=== PATIENT | female | born 1960 | race Caucasian/White ===

== ENCOUNTER 2024-05-24 12:47 | Inpatient (IN) | payer MEDICARE, MEDICAID ==
[~2024-05-24] VITALS: Ht 165.1 cm; Wt 77.6 kg
[2024-05-24 14:22] LABS: COVID AG,FIA SOURCE NASAL SWAB
[2024-05-24 14:23] LABS: BASOPHILS % (AUTO) 0.4 % (0.0-2.0); EOSINOPHILS % (AUTO) 1.3 % (1.0-6.0); HEMOGLOBIN 14.2 g/dL (12.0-16.0); LYMPHOCYTES # (AUTO) 1.3 K/uL (1.0-4.8); LYMPHOCYTES % (AUTO) 11.2 % (22.0-44.0); MEAN CORPUSCULAR HEMOGLOBIN 31.7 pg (26.0-34.0); MEAN CORPUSCULAR VOLUME 96 fL (80-100); MONOCYTES % (AUTO) 8.1 % (2.0-9.0); NEUTROPHILS # (AUTO) 9.4 K/uL (1.8-7.7); PLATELET COUNT (AUTO) 183 K/uL (150-450); RED BLOOD CELL COUNT(AUTO) 4.47 MIL/uL (4.00-5.20); RED CELL DISTRIBUTION WIDTH 13.5 % (11.5-14.5); WHITE BLOOD COUNT (AUTO) 11.9 K/uL (4.5-11.0)
[2024-05-24 14:41] LABS: ANION GAP 10 mmol/L (8-16); CALCIUM, TOTAL 8.6 mg/dL (8.8-10.5); CARBON DIOXIDE 27 mmol/L (22-29); CHLORIDE 103 mmol/L (98-107); GLOMERULAR FILTR. RATE CALC 46 mL/min (>60); GLUCOSE,RANDOM 216 mg/dL (70-110); POTASSIUM 4.6 mmol/L (3.5-5.1); SODIUM SERUM 140 mmol/L (136-145); TROPONIN I-HIGH SENSITIVITY 4 ng/L (<51); UREA NITROGEN, BLOOD 27 mg/dL (7-18)
[2024-05-24 14:46] LABS: ALANINE AMINOTRANSFERASE 12 U/L (12-78); ALBUMIN 2.8 g/dL (3.4-5.0); ALKALINE PHOSPHATASE 89 U/L (46-116); ASPARTATE AMINOTRANSFERASE 9 U/L (15-37); BILIRUBIN,TOTAL 0.4 mg/dL (0.1-1.0); LIPASE 17 U/L (16-77); TOTAL PROTEIN, SERUM 6.1 g/dL (6.4-8.2)
[2024-05-24 14:54] LABS: SARS-COV2 (COVID) ANTIGEN,FIA Negative (Negative)
[2024-05-24 15:09] LABS: ALCOHOL, BLOOD (SERUM) < 3 mg/dL (0-10)
[2024-05-24 17:10] VITALS: O2SAT 98
[2024-05-24] MEDS: LORazepam 2 MG TABLET PO PRN (18:02)
[2024-05-24 20:01] LABS: GLUCOMETER DEV NAME(LOC) BV2X.3; GLUCOSE,POINT OF CARE 195 MG/DL (70-110)
[2024-05-24 20:05] VITALS: BP 152/69; PULSE 98; RESP 18; TEMP 97.5; O2SAT 99
[2024-05-24] MEDS ORDERED: MAGNESIUM HYDROXIDE SUSPENSION 30 ML UDCUP PO PRN (23:00)
[2024-05-24] MEDS ORDERED: MAG HYDROX/ALUMINUM HYD/SIMETH ES 30 ML SUSPENSION UDCUP PO PRN (23:00)
[2024-05-24] MEDS ORDERED: HydrOXYzine PAMOATE 50 MG CAPSULE PO PRN (23:00)
[2024-05-24] MEDS ORDERED: MELATONIN 5 MG TABLET PO PRN (23:00)
[2024-05-25 08:18] VITALS: BP 113/70; PULSE 94; RESP 17; TEMP 97.9; O2SAT 95
[2024-05-25] MEDS: GABAPENTIN 400 MG CAPSULE PO SCH (08:25)
[2024-05-25] MEDS: MULTIVITAMINS WITH MINERALS, THERAPEUTIC TABLET PO SCH (08:25)
[2024-05-25] MEDS: OMEGA-3/DHA/EPA/FISH OIL 1,000 MG CAPSULE PO SCH (08:25)
[2024-05-25] MEDS: DULoxetine HCL 30 MG CAPSULE PO SCH (08:25)
[2024-05-25] MEDS: DIVALPROEX SODIUM 500 MG ER TABLET PO SCH (08:26)
[2024-05-25] MEDS: NALTREXONE HCL 50 MG TABLET PO SCH (08:26)
[2024-05-25] MEDS: THIAMINE 100 MG TABLET PO SCH (08:26)
[2024-05-25] MEDS: FOLIC ACID 1 MG TABLET PO SCH (08:26)
[2024-05-25] MEDS: ROPINIRole HCL 0.25 MG TABLET PO SCH (08:36)
[2024-05-25] MEDS: PROPRANOLOL HCL 10 MG TABLET PO SCH (08:36)
[2024-05-25 09:59] LABS: CHOL/HDL RATIO 2.7 (3.9-5.7); FREE T4 (FREE THYROXINE) 0.99 ng/dL (0.76-1.46); THYROID STIMULATING HORMONE 0.92 uIU/mL (0.36-3.74)
[2024-05-25] MEDS: LOPERAMIDE HCL 2 MG CAPSULE PO PRN (10:26)
[2024-05-25] MEDS: NICOTINE 14 MG/24 HOUR PATCH TD SCH (10:49)
[2024-05-25 13:26] LABS: GLUCOMETER DEV NAME(LOC) BV2X.3; GLUCOSE,POINT OF CARE 198 MG/DL (70-110)
[2024-05-25] MEDS: ACETAMINOPHEN 325 MG TABLET PO PRN (15:20)
[2024-05-25] MEDS: LURASIDONE HCL 20 MG TABLET PO SCH (16:00)
[2024-05-25 16:20] VITALS: RESP 18
[2024-05-25] MEDS: QUEtiapine FUMARATE 300 MG TABLET PO SCH (20:03)
[2024-05-25] MEDS: TraZODone HCL 100 MG TABLET PO SCH (20:03)
[2024-05-25] MEDS: ZOLPIDEM TARTRATE 10 MG TABLET PO PRN (20:03)
[2024-05-25 20:35] VITALS: BP 139/61; PULSE 88; RESP 18; TEMP 98; O2SAT 99
[2024-05-26] VITALS (9 sets, daily range): BP systolic 98–146; BP diastolic 55–76; PULSE 70–99; RESP 16–20; TEMP 96.5–98.5; O2SAT 94–97
[2024-05-26 10:32] LABS: HEMOGLOBIN A1C 8.8 % (3.8-5.6)
[2024-05-26 10:54] LABS: CHOL/HDL RATIO 3.1 (3.9-5.7); FREE T4 (FREE THYROXINE) 0.87 ng/dL (0.76-1.46); THYROID STIMULATING HORMONE 0.91 uIU/mL (0.36-3.74)
[2024-05-26] MEDS: GuaiFENesin/D-METHORPHAN [SUGAR-FREE] 200-20MG/10 ML SYRUP UDCUP PO PRN (12:51)
[2024-05-26] MEDS: PNEUMOCOCCAL VACCINE POLYVALENT 0.5 ML SYRINGE [PPSV23] IM. ONE (17:30)
[2024-05-26 21:40] LABS: GLUCOMETER DEV NAME(LOC) BV2X.3; GLUCOSE,POINT OF CARE 240 MG/DL (70-110)
[2024-05-27] VITALS (7 sets, daily range): BP systolic 110–125; BP diastolic 60–72; PULSE 78–98; RESP 16–18; TEMP 97–98.1; O2SAT 91–98
[2024-05-28 08:00] VITALS: BP 102/67; PULSE 92; RESP 16; TEMP 96.1; O2SAT 98
[2024-05-28 08:52] LABS: BASOPHILS % (AUTO) 0.6 % (0.0-2.0); EOSINOPHILS % (AUTO) 1.5 % (1.0-6.0); HEMATOCRIT 42.6 % (36-46); HEMOGLOBIN 14.3 g/dL (12.0-16.0); LYMPHOCYTES # (AUTO) 1.8 K/uL (1.0-4.8); LYMPHOCYTES % (AUTO) 20.9 % (22.0-44.0); MEAN CORPUSCULAR HGB CONC 33.6 G/dL (31.0-37.0); MEAN CORPUSCULAR VOLUME 95 fL (80-100); MONOCYTES # (AUTO) 0.8 K/uL (0.1-1.0); MONOCYTES % (AUTO) 9.9 % (2.0-9.0); NEUTROPHILS # (AUTO) 5.6 K/uL (1.8-7.7); NEUTROPHILS % (AUTO) 67.1 % (40.0-70.0); PLATELET COUNT (AUTO) 194 K/uL (150-450); RED BLOOD CELL COUNT(AUTO) 4.47 MIL/uL (4.00-5.20); RED CELL DISTRIBUTION WIDTH 13.5 % (11.5-14.5); WHITE BLOOD COUNT (AUTO) 8.4 K/uL (4.5-11.0)
[2024-05-28] MEDS: QUEtiapine FUMARATE 25 MG TABLET PO SCH (17:15)
[2024-05-28 20:10] VITALS: BP 98/58; PULSE 74; RESP 18; TEMP 97.3; O2SAT 97
[2024-05-29] VITALS (7 sets, daily range): BP systolic 98–136; BP diastolic 58–94; PULSE 71–84; RESP 17–18; TEMP 97.3–98.3; O2SAT 92–98
[2024-05-29] MEDS: ROPINIRole HCL 0.25 MG TABLET PO SCH (08:44)
[2024-05-29] MEDS: DULoxetine HCL 60 MG CAPSULE PO SCH (08:45)
[2024-05-29] MEDS: PROPRANOLOL HCL 10 MG TABLET PO SCH (08:46)
[2024-05-29] MEDS: LURASIDONE HCL 40 MG TABLET PO SCH (16:51)
[2024-05-29] MEDS: LEVOFLOXACIN 500 MG TABLET PO ONE (18:50)
[2024-05-30 08:21] VITALS: BP 108/65; PULSE 66; RESP 16; TEMP 97.8; O2SAT 96
[2024-05-30] MEDS: LEVOFLOXACIN 750 MG TABLET PO SCH (08:30)
[2024-05-30 08:44] LABS: BASOPHILS % (AUTO) 0.6 % (0.0-2.0); EOSINOPHILS % (AUTO) 2.5 % (1.0-6.0); HEMATOCRIT 42.5 % (36-46); HEMOGLOBIN 14.4 g/dL (12.0-16.0); LYMPHOCYTES # (AUTO) 1.1 K/uL (1.0-4.8); LYMPHOCYTES % (AUTO) 19.3 % (22.0-44.0); MEAN CORPUSCULAR HEMOGLOBIN 32.2 pg (26.0-34.0); MEAN CORPUSCULAR HGB CONC 33.9 G/dL (31.0-37.0); MEAN CORPUSCULAR VOLUME 95 fL (80-100); MONOCYTES # (AUTO) 0.5 K/uL (0.1-1.0); MONOCYTES % (AUTO) 8.8 % (2.0-9.0); NEUTROPHILS # (AUTO) 4.1 K/uL (1.8-7.7); NEUTROPHILS % (AUTO) 68.8 % (40.0-70.0); PLATELET COUNT (AUTO) 223 K/uL (150-450); RED BLOOD CELL COUNT(AUTO) 4.48 MIL/uL (4.00-5.20); RED CELL DISTRIBUTION WIDTH 13.2 % (11.5-14.5); WHITE BLOOD COUNT (AUTO) 5.9 K/uL (4.5-11.0)
[2024-05-30 08:54] LABS: ANION GAP 10 mmol/L (8-16); CALCIUM, TOTAL 9.1 mg/dL (8.8-10.5); CARBON DIOXIDE 30 mmol/L (22-29); CHLORIDE 96 mmol/L (98-107); CREATININE 0.76 mg/dL (0.60-1.30); GLOMERULAR FILTR. RATE CALC > 60 mL/min (>60); GLUCOSE,RANDOM 186 mg/dL (70-110); SODIUM SERUM 136 mmol/L (136-145); UREA NITROGEN, BLOOD 14 mg/dL (7-18); VALPROIC ACID 32 mcg/mL (50-100)
[2024-05-30 09:32] LABS: INFLUENZA TYPE A NEGATIVE FOR TYPE A (NEGATIVE); INFLUENZA TYPE B NEGATIVE FOR TYPE B (NEGATIVE)
[2024-05-30] MEDS: LORazepam 0.5 MG TABLET PO PRN (11:02)
[2024-05-30 12:46] VITALS: BP 123/67; PULSE 70; RESP 16; O2SAT 96
[2024-05-30 16:19] VITALS: BP 106/62; PULSE 75; RESP 18; O2SAT 99
[2024-05-30 20:09] VITALS: BP 106/64; PULSE 68; RESP 18; TEMP 98.2; O2SAT 95
[2024-05-31 08:21] VITALS: BP 110/67; PULSE 66; RESP 17; TEMP 98.1; O2SAT 97
[2024-05-31 12:57] VITALS: BP 110/60; PULSE 79; RESP 16; O2SAT 96
[2024-05-31 17:10] VITALS: BP 100/60; PULSE 71; RESP 17; O2SAT 96
[2024-05-31] MEDS: TUBERCULIN, PURIFIED PROTEIN DERIVATIVE 5 TU/0.1 ML SYRINGE ID ONE (17:21)
[2024-05-31 20:11] VITALS: BP 93/57; PULSE 62; RESP 18; TEMP 96.7; O2SAT 95
[2024-06-01 08:05] VITALS: BP 106/67; PULSE 98; RESP 16; TEMP 97.9; O2SAT 95
[2024-06-01 12:40] VITALS: BP 124/79; PULSE 88; RESP 17; O2SAT 96
[2024-06-01] MEDS: GABAPENTIN 100 MG CAPSULE PO SCH (12:51)
[2024-06-01 13:20] VITALS: RESP 17
[2024-06-01 14:20] VITALS: RESP 16
[2024-06-01 16:00] VITALS: BP 112/60; PULSE 78; RESP 17; O2SAT 96
[2024-06-01 20:56] VITALS: BP 112/58; PULSE 69; RESP 17; TEMP 98.4; O2SAT 95
[2024-06-02 08:09] VITALS: BP 131/75; PULSE 74; RESP 18; TEMP 97.5; O2SAT 95
[2024-06-02] MEDS: PROMETHAZINE HCL 25 MG TABLET PO PRN (08:35)
[2024-06-02 16:39] VITALS: BP 123/81; PULSE 83; RESP 18
[2024-06-02 20:08] VITALS: BP 116/62; PULSE 68; RESP 16; TEMP 97.7; O2SAT 100
[2024-06-03 08:10] VITALS: BP 121/79; PULSE 71; RESP 18; TEMP 98; O2SAT 96
[2024-06-03] MEDS: MAG HYDROX/ALUMINUM HYD/SIMETH ES 30 ML SUSPENSION UDCUP PO PRN (09:34)
[2024-06-03] MEDS: HALOPERIDOL 5 MG TABLET PO PRN (11:16)
[2024-06-03 16:28] VITALS: BP 109/79; PULSE 67; RESP 18
[2024-06-03 20:05] VITALS: BP 105/69; PULSE 69; RESP 18; TEMP 97.5; O2SAT 100
[2024-06-04 08:02] VITALS: BP 109/72; PULSE 75; RESP 18; TEMP 96.6; O2SAT 95
[2024-06-04 08:20] VITALS: BP 109/72; PULSE 75; RESP 18; TEMP 96.6; O2SAT 95
[2024-06-04] MEDS: MAGNESIUM HYDROXIDE SUSPENSION 30 ML UDCUP PO PRN (09:49)
[2024-06-04 13:57] VITALS: BP 112/71; PULSE 70; RESP 18
[2024-06-04 16:30] VITALS: BP 114/63; PULSE 71; RESP 18
[2024-06-04 20:09] VITALS: BP 122/61; PULSE 73; RESP 18; TEMP 97.8
[2024-06-05 08:21] VITALS: BP 104/62; PULSE 63; RESP 16; TEMP 97.9; O2SAT 96
[2024-06-05] MEDS: GABAPENTIN 300 MG CAPSULE PO SCH (08:21)
[2024-06-05] MEDS: DIVALPROEX SODIUM 500 MG ER TABLET PO SCH (11:52)
[2024-06-05] MEDS: LURASIDONE HCL 60 MG TABLET PO SCH (17:00)
[2024-06-05] MEDS: GABAPENTIN 400 MG CAPSULE PO SCH (17:00)
[2024-06-05 22:35] VITALS: BP 102/65; PULSE 96; RESP 16; TEMP 98.2; O2SAT 96
[2024-06-06 08:01] VITALS: BP 128/89; PULSE 89; RESP 18; TEMP 97.9; O2SAT 95
[2024-06-06] MEDS: DONEPEZIL HCL 5 MG TABLET PO SCH (08:47)
[2024-06-06] MEDS: LURASIDONE HCL 80 MG TABLET PO SCH (16:45)
[2024-06-06 20:25] VITALS: BP 132/64; PULSE 76; RESP 17; TEMP 97.5; O2SAT 95
[2024-06-07] MEDS: GABAPENTIN 300 MG CAPSULE PO PRN (08:13)
[2024-06-07 10:15] LABS: APPEARANCE,URINE CLEAR (CLEAR); BILIRUBIN,URINE NEGATIVE (NEGATIVE); COLOR,URINE LIGHT YELLOW (YELLOW); GLUCOSE, URINE (UA) 300-500 mg/dL (NEGATIVE); LEUKOCYTE ESTERASE ,URINE NEGATIVE (NEGATIVE); NITRATE,URINE NEGATIVE (NEGATIVE); OCCULT BLOOD,URINE NEGATIVE (NEGATIVE); PROTEIN,URINE NEGATIVE (NEGATIVE); SPECIFIC GRAVITIY, URINE 1.015 (1.003-1.030); UROBILINOGEN,URINE <=1.0 mg/dL (<=1.0)
[2024-06-07 10:31] VITALS: BP 126/84; PULSE 83; RESP 17; TEMP 97.2; O2SAT 98
[2024-06-07 11:20] LABS: BACTERIA,URINE None Seen /HPF (None Seen); RBC,URINE None Seen /HPF (0-2); SQUAMOUS EPITHELIAL CELL,UR Few /LPF (None Seen); WBC,URINE None Seen /HPF (0-5)
[2024-06-07 16:00] VITALS: BP 129/68; PULSE 72; RESP 18; TEMP 97; O2SAT 100
[2024-06-07 17:45] LABS: GLUCOMETER DEV NAME(LOC) 3EX.2; GLUCOSE,POINT OF CARE 258 MG/DL (70-110)
[2024-06-07 20:00] VITALS: BP 145/82; PULSE 73; RESP 19; TEMP 97.9; O2SAT 98
[2024-06-07 21:36] LABS: GLUCOMETER DEV NAME(LOC) 3EX.2; GLUCOSE,POINT OF CARE 241 MG/DL (70-110)
[2024-06-07] MEDS: INSULIN LISPRO 100 UNITS/ML SQ PRN (22:14)
[2024-06-08 06:46] LABS: GLUCOMETER DEV NAME(LOC) 3EX.2; GLUCOSE,POINT OF CARE 207 MG/DL (70-110)
[2024-06-08 09:00] VITALS: BP 100/49; PULSE 70; RESP 18; TEMP 97.6; O2SAT 93
[2024-06-08 10:53] VITALS: BP 103/52; PULSE 71; RESP 18; TEMP 97.6; O2SAT 98
[2024-06-08] MEDS: ACETAMINOPHEN 325 MG TABLET PO PRN (10:53)
[2024-06-08 11:53] VITALS: BP 124/82; PULSE 72; RESP 18; TEMP 97.4; O2SAT 98
[2024-06-08 12:25] LABS: GLUCOMETER DEV NAME(LOC) 3EX.2; GLUCOSE,POINT OF CARE 294 MG/DL (70-110)
[2024-06-08 17:45] LABS: GLUCOMETER DEV NAME(LOC) 3EX.2; GLUCOSE,POINT OF CARE 349 MG/DL (70-110)
[2024-06-08 20:00] VITALS: BP 103/51; PULSE 69; RESP 18; TEMP 96.8; O2SAT 97
[2024-06-08 22:21] LABS: GLUCOMETER DEV NAME(LOC) 3EX.2; GLUCOSE,POINT OF CARE 210 MG/DL (70-110)
[2024-06-09 06:31] LABS: GLUCOMETER DEV NAME(LOC) 3EX.2; GLUCOSE,POINT OF CARE 186 MG/DL (70-110)
[2024-06-09 08:00] VITALS: BP 119/73; PULSE 63; RESP 17; TEMP 97.5
[2024-06-09] MEDS: GABAPENTIN 300 MG CAPSULE PO SCH (08:28)
[2024-06-09] MEDS: QUEtiapine FUMARATE 25 MG TABLET PO SCH (08:28)
[2024-06-09] MEDS: LOPERAMIDE HCL 2 MG CAPSULE PO PRN (11:45)
[2024-06-09 12:11] LABS: GLUCOMETER DEV NAME(LOC) 3E.C; GLUCOSE,POINT OF CARE 386 MG/DL (70-110)
[2024-06-09 17:11] LABS: GLUCOMETER DEV NAME(LOC) 3E.C; GLUCOSE,POINT OF CARE 256 MG/DL (70-110)
[2024-06-09 20:38] VITALS: BP 121/72; PULSE 68; RESP 18; TEMP 98; O2SAT 98
[2024-06-09 22:16] LABS: GLUCOMETER DEV NAME(LOC) 3EX.2; GLUCOSE,POINT OF CARE 225 MG/DL (70-110)
[2024-06-10 06:52] LABS: GLUCOMETER DEV NAME(LOC) 3EX.2; GLUCOSE,POINT OF CARE 193 MG/DL (70-110)
[2024-06-10 09:29] VITALS: BP 106/70; PULSE 83; RESP 18; TEMP 97.7; O2SAT 98
[2024-06-10] MEDS: ALBUTEROL SULFATE HFA 90 MCG/PUFF 8 GM INHALER IH PRN (10:49)
[2024-06-10 11:41] LABS: GLUCOMETER DEV NAME(LOC) 3EX.2; GLUCOSE,POINT OF CARE 313 MG/DL (70-110)
[2024-06-10 12:22] VITALS: BP 100/55; PULSE 79
[2024-06-10 16:30] VITALS: BP 107/58; PULSE 70
[2024-06-10 16:37] LABS: GLUCOMETER DEV NAME(LOC) 3EX.2; GLUCOSE,POINT OF CARE 335 MG/DL (70-110)
[2024-06-10 21:21] LABS: GLUCOMETER DEV NAME(LOC) 3EX.2; GLUCOSE,POINT OF CARE 251 MG/DL (70-110)
[2024-06-10 21:51] VITALS: BP 111/58; PULSE 64; RESP 18; TEMP 97.7; O2SAT 98
[2024-06-11 07:16] LABS: GLUCOMETER DEV NAME(LOC) 3EX.2; GLUCOSE,POINT OF CARE 193 MG/DL (70-110)
[2024-06-11 08:00] VITALS: BP 120/68; PULSE 66; RESP 18; TEMP 96.8; O2SAT 95
[2024-06-11 11:40] LABS: GLUCOMETER DEV NAME(LOC) 3EX.2; GLUCOSE,POINT OF CARE 352 MG/DL (70-110)
[2024-06-11 12:18] VITALS: BP 115/62; PULSE 73
[2024-06-11 16:36] LABS: GLUCOMETER DEV NAME(LOC) 3EX.2; GLUCOSE,POINT OF CARE 226 MG/DL (70-110)
[2024-06-11 16:56] VITALS: BP 97/75; PULSE 104
[2024-06-11] MEDS: DiphenhydrAMINE HCL 25 MG CAPSULE PO PRN (17:09)
[2024-06-11] MEDS: BENZONATATE 100 MG CAPSULE PO PRN (17:09)
[2024-06-11 20:41] LABS: GLUCOMETER DEV NAME(LOC) 3EX.2; GLUCOSE,POINT OF CARE 238 MG/DL (70-110)
[2024-06-11 21:44] VITALS: BP 98/59; PULSE 61; RESP 17; TEMP 98; O2SAT 96
[2024-06-12 06:45] LABS: GLUCOMETER DEV NAME(LOC) 3EX.2; GLUCOSE,POINT OF CARE 173 MG/DL (70-110)
[2024-06-12 08:46] VITALS: BP 109/69; PULSE 75; RESP 18; TEMP 97.5; O2SAT 98
[2024-06-12 12:06] LABS: GLUCOMETER DEV NAME(LOC) 3EX.2; GLUCOSE,POINT OF CARE 350 MG/DL (70-110)
[2024-06-12 12:42] VITALS: BP 96/52; PULSE 62; RESP 18; TEMP 98.2
[2024-06-12 16:51] LABS: GLUCOMETER DEV NAME(LOC) 3EX.2; GLUCOSE,POINT OF CARE 346 MG/DL (70-110)
[2024-06-12 17:24] VITALS: BP 122/64; PULSE 70; RESP 18; TEMP 97.8; O2SAT 96
[2024-06-12 20:26] LABS: GLUCOMETER DEV NAME(LOC) 3EX.2; GLUCOSE,POINT OF CARE 244 MG/DL (70-110)
[2024-06-12 20:30] VITALS: BP 128/66; PULSE 68; RESP 19; TEMP 98.3; O2SAT 98
[2024-06-13] MEDS: OXYBUTYNIN CHLORIDE 5 MG TABLET PO SCH (08:21)
[2024-06-13 08:26] LABS: GLUCOMETER DEV NAME(LOC) 3EX.2; GLUCOSE,POINT OF CARE 198 MG/DL (70-110)
[2024-06-13 09:00] VITALS: BP 130/66; PULSE 76; RESP 18; TEMP 97.7; O2SAT 92
[2024-06-13] MEDS ORDERED: DONEPEZIL HCL 5 MG TABLET PO SCH (09:00)
[2024-06-13 11:25] LABS: GLUCOMETER DEV NAME(LOC) 3EX.2; GLUCOSE,POINT OF CARE 298 MG/DL (70-110)
[2024-06-13 12:03] VITALS: BP 111/61; PULSE 64
[2024-06-13 16:21] LABS: GLUCOMETER DEV NAME(LOC) 3EX.2; GLUCOSE,POINT OF CARE 293 MG/DL (70-110)
[2024-06-13 16:50] VITALS: BP 103/62; PULSE 69
[2024-06-13] MEDS: LURASIDONE HCL 40 MG TABLET PO SCH (16:53)
[2024-06-13] MEDS: TraZODone HCL 50 MG TABLET PO SCH (20:30)
[2024-06-13] MEDS: PRAZOSIN HCL 1 MG CAPSULE PO SCH (20:30)
[2024-06-13] MEDS: DONEPEZIL HCL 5 MG TABLET PO SCH (20:30)
[2024-06-13 21:37] VITALS: BP 102/61; PULSE 66; RESP 16; TEMP 97.1; O2SAT 95
[2024-06-14 06:51] LABS: GLUCOMETER DEV NAME(LOC) 3E.C; GLUCOSE,POINT OF CARE 223 MG/DL (70-110)
[2024-06-14 09:39] VITALS: BP 111/70; PULSE 66; RESP 18; TEMP 98.1; O2SAT 98
[2024-06-14 11:31] LABS: GLUCOMETER DEV NAME(LOC) 3EX.2; GLUCOSE,POINT OF CARE 317 MG/DL (70-110)
[2024-06-14 16:31] LABS: GLUCOMETER DEV NAME(LOC) 3E.C; GLUCOSE,POINT OF CARE 246 MG/DL (70-110)
[2024-06-14 20:16] LABS: GLUCOMETER DEV NAME(LOC) 3E.C; GLUCOSE,POINT OF CARE 278 MG/DL (70-110)
[2024-06-14 22:21] VITALS: BP 103/57; PULSE 60; RESP 18; TEMP 97.6; O2SAT 60
[2024-06-15 07:06] LABS: GLUCOMETER DEV NAME(LOC) 3EX.2; GLUCOSE,POINT OF CARE 207 MG/DL (70-110)
[2024-06-15 07:58] LABS: ANION GAP 5 mmol/L (8-16); CALCIUM, TOTAL 8.5 mg/dL (8.8-10.5); CARBON DIOXIDE 32 mmol/L (22-29); CHLORIDE 102 mmol/L (98-107); CREATININE 0.81 mg/dL (0.60-1.30); GLOMERULAR FILTR. RATE CALC > 60 mL/min (>60); GLUCOSE,RANDOM 206 mg/dL (70-110); POTASSIUM 4.5 mmol/L (3.5-5.1); SODIUM SERUM 139 mmol/L (136-145); UREA NITROGEN, BLOOD 16 mg/dL (7-18)
[2024-06-15 09:00] VITALS: BP 127/62; PULSE 64; TEMP 97.3
[2024-06-15] MEDS: SitaGLIPtin PHOSPHATE 25 MG TABLET PO SCH (09:34)
[2024-06-15] MEDS: MODAFINIL 100 MG TABLET PO SCH (09:41)
[2024-06-15 12:01] LABS: GLUCOMETER DEV NAME(LOC) 3E.C; GLUCOSE,POINT OF CARE 285 MG/DL (70-110)
[2024-06-15 16:41] LABS: GLUCOMETER DEV NAME(LOC) 3E.C; GLUCOSE,POINT OF CARE 292 MG/DL (70-110)
[2024-06-15 20:00] VITALS: BP 117/63; PULSE 68; RESP 18; TEMP 97.5; O2SAT 96
[2024-06-15 20:30] LABS: GLUCOMETER DEV NAME(LOC) 3EX.2; GLUCOSE,POINT OF CARE 309 MG/DL (70-110)
[2024-06-16 06:00] LABS: GLUCOMETER DEV NAME(LOC) 3EX.2; GLUCOSE,POINT OF CARE 180 MG/DL (70-110)
[2024-06-16 08:50] VITALS: BP 108/62; PULSE 68; RESP 19; TEMP 97.8; O2SAT 98
[2024-06-16 12:11] LABS: GLUCOMETER DEV NAME(LOC) 3E.C; GLUCOSE,POINT OF CARE 335 MG/DL (70-110)
[2024-06-16 12:55] VITALS: BP 98/59; PULSE 62; RESP 18; O2SAT 97
[2024-06-16 15:52] VITALS: BP 108/66; PULSE 60; RESP 18; TEMP 97.8; O2SAT 97
[2024-06-16 16:56] VITALS: RESP 17
[2024-06-16 17:54] VITALS: BP 119/68; PULSE 68; RESP 18; O2SAT 96
[2024-06-16 18:15] LABS: GLUCOMETER DEV NAME(LOC) 3E.C; GLUCOSE,POINT OF CARE 273 MG/DL (70-110)
[2024-06-16 20:31] LABS: GLUCOMETER DEV NAME(LOC) 3EX.2; GLUCOSE,POINT OF CARE 250 MG/DL (70-110)
[2024-06-16 21:23] VITALS: BP 108/49; PULSE 67; RESP 18; TEMP 97.4; O2SAT 97
[2024-06-17 05:46] LABS: GLUCOMETER DEV NAME(LOC) 3EX.2; GLUCOSE,POINT OF CARE 175 MG/DL (70-110)
[2024-06-17 09:13] VITALS: BP 120/65; PULSE 78; RESP 15; TEMP 98.2
[2024-06-17 11:50] LABS: GLUCOMETER DEV NAME(LOC) 3E.C; GLUCOSE,POINT OF CARE 269 MG/DL (70-110)
[2024-06-17 12:34] VITALS: BP 111/46; PULSE 71
[2024-06-17 15:48] VITALS: BP 115/68; PULSE 72; RESP 20; TEMP 97; O2SAT 96
[2024-06-17 16:25] LABS: GLUCOMETER DEV NAME(LOC) 3E.C; GLUCOSE,POINT OF CARE 260 MG/DL (70-110)
[2024-06-17 20:48] VITALS: BP 132/66; PULSE 73; RESP 18; TEMP 97.9; O2SAT 97
[2024-06-17 22:20] LABS: GLUCOMETER DEV NAME(LOC) 3EX.2; GLUCOSE,POINT OF CARE 242 MG/DL (70-110)
[2024-06-18 07:00] LABS: GLUCOMETER DEV NAME(LOC) 3EX.2; GLUCOSE,POINT OF CARE 208 MG/DL (70-110)
[2024-06-18 08:00] VITALS: BP 111/61; PULSE 74; RESP 17; TEMP 97.7; O2SAT 95
[2024-06-18 12:10] LABS: GLUCOMETER DEV NAME(LOC) 3E.C; GLUCOSE,POINT OF CARE 220 MG/DL (70-110)
[2024-06-18 12:45] VITALS: BP 98/65; PULSE 73
[2024-06-18 16:36] LABS: GLUCOMETER DEV NAME(LOC) 3E.C; GLUCOSE,POINT OF CARE 237 MG/DL (70-110)
[2024-06-18 18:00] VITALS: BP 105/62; PULSE 67
[2024-06-18 20:41] LABS: GLUCOMETER DEV NAME(LOC) 3EX.2; GLUCOSE,POINT OF CARE 179 MG/DL (70-110)
[2024-06-18 20:59] VITALS: BP 100/64; PULSE 68; RESP 17; TEMP 97.4; O2SAT 96
[2024-06-18] MEDS: PRAZOSIN HCL 2 MG CAPSULE PO SCH (21:08)
[2024-06-19 06:21] LABS: GLUCOMETER DEV NAME(LOC) 3EX.2; GLUCOSE,POINT OF CARE 173 MG/DL (70-110)
[2024-06-19 08:30] VITALS: BP 114/67; PULSE 71; RESP 18; TEMP 97.2; O2SAT 95
[2024-06-19 11:35] LABS: GLUCOMETER DEV NAME(LOC) 3E.C; GLUCOSE,POINT OF CARE 270 MG/DL (70-110)
[2024-06-19 11:55] VITALS: BP 117/71; PULSE 69; RESP 17; TEMP 97.6
[2024-06-19 12:55] VITALS: RESP 17; TEMP 97.9
[2024-06-19 16:40] LABS: GLUCOMETER DEV NAME(LOC) 3E.C; GLUCOSE,POINT OF CARE 262 MG/DL (70-110)
[2024-06-19 20:15] VITALS: BP 109/76; PULSE 65; RESP 18; TEMP 97.9; O2SAT 98
[2024-06-19 20:30] LABS: GLUCOMETER DEV NAME(LOC) 3EX.2; GLUCOSE,POINT OF CARE 210 MG/DL (70-110)
[2024-06-20 06:21] LABS: GLUCOMETER DEV NAME(LOC) 3EX.2; GLUCOSE,POINT OF CARE 178 MG/DL (70-110)
[2024-06-20 08:25] VITALS: BP 123/73; PULSE 62; RESP 17; TEMP 97.5; O2SAT 97
[2024-06-20 11:41] LABS: GLUCOMETER DEV NAME(LOC) 3E.C; GLUCOSE,POINT OF CARE 234 MG/DL (70-110)
[2024-06-20 12:47] VITALS: BP 96/62; PULSE 64; RESP 18; O2SAT 97
[2024-06-20 16:20] VITALS: BP 121/76; PULSE 77; RESP 18; O2SAT 98
[2024-06-20 19:01] LABS: GLUCOMETER DEV NAME(LOC) 3E.C; GLUCOSE,POINT OF CARE 250 MG/DL (70-110)
[2024-06-20 20:00] VITALS: BP 106/58; PULSE 64; RESP 15; TEMP 97.5; O2SAT 98
[2024-06-20 21:05] LABS: GLUCOMETER DEV NAME(LOC) 3EX.2; GLUCOSE,POINT OF CARE 231 MG/DL (70-110)
[2024-06-21 05:50] LABS: GLUCOMETER DEV NAME(LOC) 3EX.2; GLUCOSE,POINT OF CARE 169 MG/DL (70-110)
[2024-06-21 08:40] VITALS: BP 107/65; PULSE 70; RESP 18; TEMP 97.9; O2SAT 96
[2024-06-21 10:01] VITALS: RESP 18
[2024-06-21 11:56] LABS: GLUCOMETER DEV NAME(LOC) 3E.C; GLUCOSE,POINT OF CARE 236 MG/DL (70-110)
[2024-06-21 13:13] VITALS: BP 100/58; PULSE 63; RESP 18; TEMP 97.6; O2SAT 97
[2024-06-21 16:23] VITALS: BP 120/64; PULSE 68; RESP 19; TEMP 97.3; O2SAT 98
[2024-06-21] MEDS: NYSTATIN 15 GM POWDER BOTTLE TP SCH (16:27)
[2024-06-21 17:41] LABS: GLUCOMETER DEV NAME(LOC) 3E.C; GLUCOSE,POINT OF CARE 243 MG/DL (70-110)
[2024-06-21 20:15] LABS: GLUCOMETER DEV NAME(LOC) 3EX.2; GLUCOSE,POINT OF CARE 270 MG/DL (70-110)
[2024-06-21 21:04] VITALS: BP 106/53; PULSE 65; RESP 18; TEMP 98.1; O2SAT 96
[2024-06-21 21:15] VITALS: BP 106/53; PULSE 65; RESP 18; TEMP 98.1; O2SAT 96
[2024-06-22 06:10] LABS: GLUCOMETER DEV NAME(LOC) 3E.C; GLUCOSE,POINT OF CARE 192 MG/DL (70-110)
[2024-06-22] MEDS: MODAFINIL 100 MG TABLET PO SCH (08:58)
[2024-06-22 09:50] VITALS: BP 112/67; PULSE 84; RESP 18; TEMP 98; O2SAT 96
[2024-06-22 11:05] LABS: GLUCOMETER DEV NAME(LOC) 3E.C; GLUCOSE,POINT OF CARE 170 MG/DL (70-110)
[2024-06-22 12:00] VITALS: BP 112/58; PULSE 75; RESP 18; TEMP 97.9; O2SAT 96
[2024-06-22 15:30] VITALS: BP 129/90; PULSE 76; RESP 19; TEMP 97.9; O2SAT 96
[2024-06-22 16:41] VITALS: RESP 18
[2024-06-22 17:10] VITALS: BP 106/65; PULSE 65; RESP 18; TEMP 97.5; O2SAT 97
[2024-06-22 17:30] LABS: GLUCOMETER DEV NAME(LOC) 3E.C; GLUCOSE,POINT OF CARE 306 MG/DL (70-110)
[2024-06-22 20:21] LABS: GLUCOMETER DEV NAME(LOC) 3EX.2; GLUCOSE,POINT OF CARE 282 MG/DL (70-110)
[2024-06-22 21:47] VITALS: BP 97/61; PULSE 58; RESP 18; TEMP 97.5; O2SAT 95
[2024-06-23 06:16] LABS: GLUCOMETER DEV NAME(LOC) 3EX.2; GLUCOSE,POINT OF CARE 165 MG/DL (70-110)
[2024-06-23 09:55] VITALS: BP 123/66; PULSE 73; RESP 20; TEMP 97.6; O2SAT 95
[2024-06-23 12:00] LABS: GLUCOMETER DEV NAME(LOC) 3E.C; GLUCOSE,POINT OF CARE 293 MG/DL (70-110)
[2024-06-23 12:36] VITALS: BP 108/65; PULSE 86; RESP 18; O2SAT 97
[2024-06-23 14:49] VITALS: BP 105/59; PULSE 70; RESP 18
[2024-06-23 15:57] VITALS: RESP 16
[2024-06-23 17:03] VITALS: BP 105/55; PULSE 67; RESP 18; TEMP 98.9; O2SAT 95
[2024-06-23 18:11] LABS: GLUCOMETER DEV NAME(LOC) 3E.C; GLUCOSE,POINT OF CARE 198 MG/DL (70-110)
[2024-06-23 20:36] LABS: GLUCOMETER DEV NAME(LOC) 3EX.2; GLUCOSE,POINT OF CARE 191 MG/DL (70-110)
[2024-06-23 23:03] VITALS: BP 122/62; PULSE 64; RESP 18; TEMP 98.5; O2SAT 98
[2024-06-24 06:13] VITALS: BP 134/68; PULSE 81; RESP 18; TEMP 98.2; O2SAT 98
[2024-06-24 06:50] LABS: GLUCOMETER DEV NAME(LOC) 3E.C; GLUCOSE,POINT OF CARE 202 MG/DL (70-110)
[2024-06-24 09:20] VITALS: BP 116/66; PULSE 80; RESP 20; TEMP 98.7; O2SAT 96
[2024-06-24 11:31] LABS: GLUCOMETER DEV NAME(LOC) 3EX.2; GLUCOSE,POINT OF CARE 225 MG/DL (70-110)
[2024-06-24 12:02] VITALS: BP 126/51; PULSE 108
[2024-06-24 16:50] LABS: GLUCOMETER DEV NAME(LOC) 3EX.2; GLUCOSE,POINT OF CARE 205 MG/DL (70-110)
[2024-06-24 18:26] VITALS: BP 101/48; PULSE 84
[2024-06-24 20:41] LABS: GLUCOMETER DEV NAME(LOC) 3E.C; GLUCOSE,POINT OF CARE 199 MG/DL (70-110)
[2024-06-24] MEDS: BENZTROPINE MESYLATE 1 MG TABLET PO SCH (21:13)
[2024-06-24 21:38] VITALS: BP 117/78; PULSE 74; RESP 16; TEMP 97.3; O2SAT 95
[2024-06-25] VITALS (7 sets, daily range): BP systolic 102–127; BP diastolic 39–70; PULSE 9–109; RESP 17–18; TEMP 97.9–98.4; O2SAT 95–98
[2024-06-25 05:51] LABS: GLUCOMETER DEV NAME(LOC) 3E.C; GLUCOSE,POINT OF CARE 191 MG/DL (70-110)
[2024-06-25 11:46] LABS: GLUCOMETER DEV NAME(LOC) 3EX.2; GLUCOSE,POINT OF CARE 193 MG/DL (70-110)
[2024-06-25 16:51] LABS: GLUCOMETER DEV NAME(LOC) 3EX.2; GLUCOSE,POINT OF CARE 201 MG/DL (70-110)
[2024-06-25] MEDS: PROPRANOLOL HCL 10 MG TABLET PO SCH (17:52)
[2024-06-25] MEDS: GABAPENTIN 300 MG CAPSULE PO SCH (17:52)
[2024-06-25 18:47] LABS: BASOPHILS % (AUTO) 0.5 % (0.0-2.0); HEMATOCRIT 36.3 % (36-46); LYMPHOCYTES # (AUTO) 0.8 K/uL (1.0-4.8); LYMPHOCYTES % (AUTO) 7.2 % (22.0-44.0); MEAN CORPUSCULAR HEMOGLOBIN 31.3 pg (26.0-34.0); MEAN CORPUSCULAR VOLUME 95 fL (80-100); MONOCYTES # (AUTO) 1.2 K/uL (0.1-1.0); MONOCYTES % (AUTO) 10.6 % (2.0-9.0); NEUTROPHILS # (AUTO) 9.3 K/uL (1.8-7.7); NEUTROPHILS % (AUTO) 79.7 % (40.0-70.0); PLATELET COUNT (AUTO) 134 K/uL (150-450); RED BLOOD CELL COUNT(AUTO) 3.83 MIL/uL (4.00-5.20); WHITE BLOOD COUNT (AUTO) 11.7 K/uL (4.5-11.0)
[2024-06-25 18:58] LABS: CALCIUM, TOTAL 8.7 mg/dL (8.8-10.5); CREATININE 1.06 mg/dL (0.60-1.30); POTASSIUM 4.1 mmol/L (3.5-5.1)
[2024-06-25 19:04] LABS: ALBUMIN 2.3 g/dL (3.4-5.0); BILIRUBIN,TOTAL 0.5 mg/dL (0.1-1.0)
[2024-06-25 20:26] LABS: GLUCOMETER DEV NAME(LOC) 3E.C; GLUCOSE,POINT OF CARE 225 MG/DL (70-110)
[2024-06-26 04:15] VITALS: RESP 18
[2024-06-26 05:15] VITALS: RESP 18
[2024-06-26 05:40] LABS: GLUCOMETER DEV NAME(LOC) 3E.C; GLUCOSE,POINT OF CARE 222 MG/DL (70-110)
[2024-06-26] MEDS: DULoxetine HCL 30 MG CAPSULE PO SCH (09:29)
[2024-06-26 09:30] VITALS: BP 140/94; PULSE 85; RESP 18; TEMP 97.3; O2SAT 96
[2024-06-26] MEDS: MODAFINIL 100 MG TABLET PO SCH (09:30)
[2024-06-26 12:05] LABS: GLUCOMETER DEV NAME(LOC) 3EX.2; GLUCOSE,POINT OF CARE 252 MG/DL (70-110)
[2024-06-26 13:16] VITALS: BP 101/58; PULSE 85
[2024-06-26 16:46] LABS: GLUCOMETER DEV NAME(LOC) 3EX.2; GLUCOSE,POINT OF CARE 232 MG/DL (70-110)
[2024-06-26 17:00] VITALS: BP 114/65; PULSE 84; RESP 20; TEMP 100.6; O2SAT 93
[2024-06-26 20:35] LABS: GLUCOMETER DEV NAME(LOC) 3E.C; GLUCOSE,POINT OF CARE 159 MG/DL (70-110)
[2024-06-26 21:04] VITALS: BP 117/65; PULSE 73; RESP 18; TEMP 98.4; O2SAT 96
[2024-06-26] MEDS: PRAZOSIN HCL 1 MG CAPSULE PO SCH (21:29)
[2024-06-26] MEDS: AZITHROMYCIN 500 MG TABLET PO SCH (21:29)
[2024-06-26] MEDS: QUEtiapine FUMARATE 200 MG TABLET PO SCH (21:34)
[2024-06-27 07:26] LABS: GLUCOMETER DEV NAME(LOC) 3E.C; GLUCOSE,POINT OF CARE 219 MG/DL (70-110)
[2024-06-27] MEDS: DULoxetine HCL 30 MG CAPSULE PO SCH (08:47)
[2024-06-27] MEDS: GABAPENTIN 100 MG CAPSULE PO SCH (08:47)
[2024-06-27 08:57] VITALS: BP 139/90; PULSE 85; RESP 17; TEMP 99.8; O2SAT 97
[2024-06-27] MEDS: PROPRANOLOL HCL 10 MG TABLET PO SCH (09:00)
[2024-06-27 09:12] LABS: INFLUENZA TYPE A NEGATIVE FOR TYPE A (NEGATIVE); INFLUENZA TYPE B NEGATIVE FOR TYPE B (NEGATIVE)
[2024-06-27 11:40] LABS: GLUCOMETER DEV NAME(LOC) 3EX.2; GLUCOSE,POINT OF CARE 191 MG/DL (70-110)
[2024-06-27] MEDS ORDERED: QUET200T30 PO (12:04)
[2024-06-27] MEDS ORDERED: GABA-1216 PO (12:04)
[2024-06-27] MEDS ORDERED: TRAZ-252 PO (12:04)
[2024-06-27] MEDS ORDERED: DIVA-153 PO (12:04)
[2024-06-27] MEDS ORDERED: DULO-114 PO (12:04)
[2024-06-27] MEDS ORDERED: PRAZ1 PO (12:04)
[2024-06-27] MEDS ORDERED: PROP10TA72 PO (12:04)
[2024-06-27] MEDS ORDERED: DONE-52 PO (12:04)
[2024-06-27] MEDS ORDERED: ROPI0.2535 PO (12:04)
== END 2024-06-27 16:41 | disposition short-term general hospital (02) | DRG 885 ==
LOC: EMS 12:47 → B2X 17:41 → 3EX 06-07 13:20
PROVIDERS: ADMIT Psychiatry & Neurology Psychiatry; ATTEND Psychiatry & Neurology Psychiatry
PROC: GZ58ZZZ Individual Psychotherapy, Cognitive-Behavioral (ICD-10-PCS; principal; 2024-05-24)
PROC: GZ56ZZZ Individual Psychotherapy, Supportive (ICD-10-PCS; 2024-05-24)
PROC: GZHZZZZ Group Psychotherapy (ICD-10-PCS; 2024-05-24)
DX: F25.0 Schizoaffective disorder, bipolar type (principal); J18.9 Pneumonia, unspecified organism; J44.0 Chronic obstructive pulmonary disease with (acute) lower respiratory infection; R45.851 Suicidal ideations; Z20.822 Contact with and (suspected) exposure to COVID-19; F41.9 Anxiety disorder, unspecified; I10 Essential (primary) hypertension; D72.829 Elevated white blood cell count, unspecified; E03.9 Hypothyroidism, unspecified; G89.29 Other chronic pain; G25.81 Restless legs syndrome; F17.200 Nicotine dependence, unspecified, uncomplicated; E78.00 Pure hypercholesterolemia, unspecified; G40.409 Other generalized epilepsy and epileptic syndromes, not intractable, without status epilepticus; R73.9 Hyperglycemia, unspecified; K59.00 Constipation, unspecified; Z79.899 Other long term (current) drug therapy; Z63.9 Problem related to primary support group, unspecified; Z59.9 Problem related to housing and economic circumstances, unspecified; Z65.3 Problems related to other legal circumstances; Z55.9 Problems related to education and literacy, unspecified; Z74.01 Bed confinement status
CPT/HCPCS: 70450; 70551; 71045; 71046; 73521; 80048; 80053; 80061; 80076; 80164; 81001; 82140; 82962; 83036; 83690; 84439; 84443; 84484; 85025; 86592; 87081; 87804; 90732; 93005; 97161; 97164; 97165; 97168; 97530; 97535; 99285; G0378; G0480; J3535; 36415-L1; 36415-TC

== ENCOUNTER 2024-06-27 15:50 | Inpatient (IN) | payer MEDICARE, OTHER ==
[~2024-06-27 15:50] MED LIST: DIVA-153 PO; DONE-52 PO; DULO-114 PO; GABA-1216 PO; PRAZ1 PO; PROP10TA72 PO; QUET200T30 PO; ROPI0.2535 PO; TRAZ-252 PO
[2024-06-27] MEDS ORDERED: MAGNESIUM HYDROXIDE SUSPENSION 30 ML UDCUP PO PRN (16:15)
[2024-06-27] MEDS ORDERED: HYDROCODONE/ACETAMINOPHEN 5-325 MG TABLET PO PRN (16:15)
[2024-06-27] MEDS ORDERED: BISACODYL 10 MG RECTAL RECTAL SUPPOSITORY PR PRN (16:15)
[2024-06-27] MEDS ORDERED: MORPHINE SULFATE 2 MG/ML SYRINGE IVP PRN (16:15)
[2024-06-27 16:30] VITALS: BP 137/81; PULSE 97; RESP 18; TEMP 99.3; O2SAT 95
[2024-06-27] MEDS: ACETAMINOPHEN 325 MG TABLET PO PRN (17:03)
[2024-06-27] MEDS ORDERED: SODIUM CHLORIDE 0.9% 500 ML IV ONE (17:07)
[2024-06-27] MEDS: LEVOFLOXACIN 750 MG/D5% WATER 150 ML IV SCH (17:10)
[2024-06-27 19:47] LABS: BASOPHILS % (AUTO) 0.3 % (0.0-2.0); EOSINOPHILS % (AUTO) 1.5 % (1.0-6.0); HEMATOCRIT 31.2 % (36-46); HEMOGLOBIN 10.5 g/dL (12.0-16.0); LYMPHOCYTES # (AUTO) 0.7 K/uL (1.0-4.8); LYMPHOCYTES % (AUTO) 7.4 % (22.0-44.0); MEAN CORPUSCULAR HEMOGLOBIN 31.6 pg (26.0-34.0); MEAN CORPUSCULAR HGB CONC 33.6 G/dL (31.0-37.0); MEAN CORPUSCULAR VOLUME 94 fL (80-100); MONOCYTES # (AUTO) 1.3 K/uL (0.1-1.0); MONOCYTES % (AUTO) 13.8 % (2.0-9.0); NEUTROPHILS # (AUTO) 7.4 K/uL (1.8-7.7); PLATELET COUNT (AUTO) 168 K/uL (150-450); RED BLOOD CELL COUNT(AUTO) 3.32 MIL/uL (4.00-5.20); RED CELL DISTRIBUTION WIDTH 13.5 % (11.5-14.5); WHITE BLOOD COUNT (AUTO) 9.6 K/uL (4.5-11.0)
[2024-06-27 19:53] LABS: ANION GAP 5 mmol/L (8-16); CARBON DIOXIDE 32 mmol/L (22-29); CHLORIDE 91 mmol/L (98-107); CREATININE 0.74 mg/dL (0.60-1.30); GLOMERULAR FILTR. RATE CALC > 60 mL/min (>60); GLUCOSE,RANDOM 224 mg/dL (70-110); SODIUM SERUM 128 mmol/L (136-145); UREA NITROGEN, BLOOD 10 mg/dL (7-18)
[2024-06-27 20:12] VITALS: BP 122/70; PULSE 85; RESP 18; TEMP 98.2; O2SAT 94
[2024-06-27] MEDS: DOCUSATE SODIUM 100 MG CAPSULE PO SCH (20:39)
[2024-06-27] MEDS: TraZODone HCL 50 MG TABLET PO SCH (20:39)
[2024-06-27] MEDS: DONEPEZIL HCL 5 MG TABLET PO SCH (20:40)
[2024-06-27] MEDS: ROPINIRole HCL 0.25 MG TABLET PO SCH (20:40)
[2024-06-27 21:40] LABS: COVID AG,FIA SOURCE NASAL SWAB
[2024-06-27 22:10] LABS: SARS-COV2 (COVID) ANTIGEN,FIA Negative (Negative)
[2024-06-27] MEDS: GABAPENTIN 100 MG CAPSULE PO SCH (22:47)
[2024-06-27] MEDS: ONDANSETRON HCL 4 MG/2 ML VIAL IVP PRN (23:52)
[2024-06-27] MEDS: HEPARIN SODIUM,PORCINE 5,000 UNITS/ML VIAL SQ SCH (23:52)
[2024-06-27] MEDS: ZOLPIDEM TARTRATE 5 MG TABLET PO PRN (23:55)
[2024-06-28] VITALS (7 sets, daily range): BP systolic 119–157; BP diastolic 63–93; PULSE 83–103; RESP 18–20; TEMP 98.3–99.1; O2SAT 90–96
[2024-06-28 06:57] LABS: ANION GAP 3 mmol/L (8-16); CALCIUM, TOTAL 8.9 mg/dL (8.8-10.5); CARBON DIOXIDE 32 mmol/L (22-29); CHLORIDE 93 mmol/L (98-107); CREATININE 0.65 mg/dL (0.60-1.30); GLOMERULAR FILTR. RATE CALC > 60 mL/min (>60); GLUCOSE,RANDOM 183 mg/dL (70-110); POTASSIUM 3.8 mmol/L (3.5-5.1); SODIUM SERUM 128 mmol/L (136-145); UREA NITROGEN, BLOOD 9 mg/dL (7-18)
[2024-06-28 06:58] LABS: BASOPHILS % (AUTO) 0.2 % (0.0-2.0); EOSINOPHILS % (AUTO) 2.1 % (1.0-6.0); HEMATOCRIT 30.3 % (36-46); HEMOGLOBIN 10.4 g/dL (12.0-16.0); LYMPHOCYTES # (AUTO) 1.1 K/uL (1.0-4.8); LYMPHOCYTES % (AUTO) 11.1 % (22.0-44.0); MEAN CORPUSCULAR HEMOGLOBIN 32.4 pg (26.0-34.0); MEAN CORPUSCULAR HGB CONC 34.3 G/dL (31.0-37.0); MEAN CORPUSCULAR VOLUME 94 fL (80-100); MONOCYTES # (AUTO) 1.3 K/uL (0.1-1.0); MONOCYTES % (AUTO) 13.9 % (2.0-9.0); NEUTROPHILS # (AUTO) 6.9 K/uL (1.8-7.7); NEUTROPHILS % (AUTO) 72.7 % (40.0-70.0); PLATELET COUNT (AUTO) 187 K/uL (150-450); RED BLOOD CELL COUNT(AUTO) 3.21 MIL/uL (4.00-5.20); RED CELL DISTRIBUTION WIDTH 14.1 % (11.5-14.5); WHITE BLOOD COUNT (AUTO) 9.5 K/uL (4.5-11.0)
[2024-06-28] MEDS: DIVALPROEX SODIUM 500 MG ER TABLET PO SCH (08:26)
[2024-06-28] MEDS: PANTOPRAZOLE SODIUM 40 MG DR TABLET PO SCH (08:26)
[2024-06-28] MEDS: DULoxetine HCL 30 MG CAPSULE PO SCH (08:28)
[2024-06-28] MEDS ORDERED: QUEtiapine FUMARATE 100 MG TABLET PO PRN (11:00)
[2024-06-28] MEDS ORDERED: DEXTROSE 50%-WATER 25 GM/50 ML SYRINGE IVP PRN (11:00)
[2024-06-28] MEDS: INSULIN LISPRO 100 UNITS/ML SQ PRN (12:02)
[2024-06-28] MEDS: BENZONATATE 100 MG CAPSULE PO SCH (14:29)
[2024-06-28] MEDS: ALBUTEROL SULFATE 2.5 MG/0.5 ML NEB SOLUTION NEB PRN (14:46)
[2024-06-28] MEDS: IPRATROPIUM BROMIDE 0.5 MG/2.5 ML NEB SOLUTION NEB PRN (14:46)
[2024-06-28 15:50] LABS: INFLUENZA TYPE A NEGATIVE FOR TYPE A (NEGATIVE); INFLUENZA TYPE B NEGATIVE FOR TYPE B (NEGATIVE)
[2024-06-28] MEDS ORDERED: SODIUM CHLORIDE 0.9% 500 ML IV ONE (18:51)
[2024-06-28 19:55] LABS: GLUCOMETER DEV NAME(LOC) 6S.2; GLUCOSE,POINT OF CARE 194 MG/DL (70-110)
[2024-06-28] MEDS: QUEtiapine FUMARATE 200 MG TABLET PO SCH (21:20)
[2024-06-28 22:01] LABS: GLUCOMETER DEV NAME(LOC) 6N.2B; GLUCOSE,POINT OF CARE 248 MG/DL (70-110)
[2024-06-29 02:43] VITALS: PULSE 98; RESP 21; O2SAT 92
[2024-06-29 02:44] VITALS: PULSE 98; RESP 21; O2SAT 92
[2024-06-29 04:00] VITALS: BP 127/73; PULSE 99; RESP 18; TEMP 99.5; O2SAT 95
[2024-06-29 07:18] VITALS: BP 120/55; PULSE 100; RESP 18; TEMP 99.1; O2SAT 97
[2024-06-29 08:21] LABS: BASOPHILS % (AUTO) 0.5 % (0.0-2.0); EOSINOPHILS % (AUTO) 2.2 % (1.0-6.0); HEMATOCRIT 31.4 % (36-46); HEMOGLOBIN 10.6 g/dL (12.0-16.0); LYMPHOCYTES % (AUTO) 11.2 % (22.0-44.0); MEAN CORPUSCULAR HEMOGLOBIN 31.7 pg (26.0-34.0); MEAN CORPUSCULAR HGB CONC 33.6 G/dL (31.0-37.0); MEAN CORPUSCULAR VOLUME 95 fL (80-100); MONOCYTES # (AUTO) 1.4 K/uL (0.1-1.0); MONOCYTES % (AUTO) 15.3 % (2.0-9.0); NEUTROPHILS # (AUTO) 6.5 K/uL (1.8-7.7); NEUTROPHILS % (AUTO) 70.8 % (40.0-70.0); PLATELET COUNT (AUTO) 220 K/uL (150-450); RED BLOOD CELL COUNT(AUTO) 3.33 MIL/uL (4.00-5.20); RED CELL DISTRIBUTION WIDTH 13.8 % (11.5-14.5); WHITE BLOOD COUNT (AUTO) 9.2 K/uL (4.5-11.0)
[2024-06-29 08:31] LABS: ANION GAP 5 mmol/L (8-16); CALCIUM, TOTAL 8.7 mg/dL (8.8-10.5); CARBON DIOXIDE 32 mmol/L (22-29); CHLORIDE 91 mmol/L (98-107); CREATININE 0.68 mg/dL (0.60-1.30); GLOMERULAR FILTR. RATE CALC > 60 mL/min (>60); GLUCOSE,RANDOM 225 mg/dL (70-110); POTASSIUM 3.6 mmol/L (3.5-5.1); SODIUM SERUM 128 mmol/L (136-145); UREA NITROGEN, BLOOD 7 mg/dL (7-18)
[2024-06-29] MEDS: SODIUM CHLORIDE 1 GM TABLET PO SCH (10:27)
[2024-06-29] MEDS: SODIUM CHLORIDE 0.9% 1,000 ML IV ONE (10:27)
[2024-06-29 12:06] LABS: GLUCOMETER DEV NAME(LOC) 6S.1D; GLUCOSE,POINT OF CARE 224 MG/DL (70-110)
[2024-06-29 12:11] LABS: GLUCOMETER DEV NAME(LOC) 6S.2; GLUCOSE,POINT OF CARE 218 MG/DL (70-110)
[2024-06-29 16:10] VITALS: BP 129/69; PULSE 79; RESP 18; TEMP 97.7; O2SAT 98
[2024-06-29 19:05] LABS: GLUCOMETER DEV NAME(LOC) 6S.2; GLUCOSE,POINT OF CARE 195 MG/DL (70-110)
[2024-06-29 19:45] LABS: ANION GAP 6 mmol/L (8-16); CALCIUM, TOTAL 8.6 mg/dL (8.8-10.5); CARBON DIOXIDE 32 mmol/L (22-29); CHLORIDE 96 mmol/L (98-107); CREATININE 0.64 mg/dL (0.60-1.30); GLOMERULAR FILTR. RATE CALC > 60 mL/min (>60); GLUCOSE,RANDOM 208 mg/dL (70-110); POTASSIUM 3.7 mmol/L (3.5-5.1); SODIUM SERUM 134 mmol/L (136-145); UREA NITROGEN, BLOOD 7 mg/dL (7-18)
[2024-06-29 21:00] VITALS: BP 136/62; PULSE 72; RESP 18; TEMP 98.3; O2SAT 94
[2024-06-29 21:19] LABS: HEMOGLOBIN 10.4 g/dL (12.0-16.0); MEAN CORPUSCULAR HEMOGLOBIN 31.8 pg (26.0-34.0); MEAN CORPUSCULAR HGB CONC 33.5 G/dL (31.0-37.0); MEAN CORPUSCULAR VOLUME 95 fL (80-100); PLATELET COUNT (AUTO) 255 K/uL (150-450); RED BLOOD CELL COUNT(AUTO) 3.27 MIL/uL (4.00-5.20); RED CELL DISTRIBUTION WIDTH 13.9 % (11.5-14.5); WHITE BLOOD COUNT (AUTO) 7.9 K/uL (4.5-11.0)
[2024-06-29 21:44] LABS: BAND NEUTROPHILS % (MANUAL) 4 % (0-5); EOSINOPHILS % (MANUAL) 2 % (1-6); LYMPHOCYTES % (MANUAL) 14 % (22-44); MONOCYTES % (MANUAL) 12 % (2-9); RBC MORPHOLOGY COMMENT NORMAL RBC MORPH; SEGMENTED NEUTROPHILS % 68 % (40-70); TOTAL CELLS COUNTED 100
[2024-06-29 22:30] LABS: GLUCOMETER DEV NAME(LOC) 6N.1B; GLUCOSE,POINT OF CARE 285 MG/DL (70-110)
[2024-06-30 04:26] LABS: GLUCOMETER DEV NAME(LOC) 6S.1D; GLUCOSE,POINT OF CARE 220 MG/DL (70-110)
[2024-06-30 05:58] VITALS: BP 124/65; PULSE 80; RESP 18; TEMP 99.1; O2SAT 93
[2024-06-30 07:15] LABS: GLUCOMETER DEV NAME(LOC) 6S.1D; GLUCOSE,POINT OF CARE 200 MG/DL (70-110)
[2024-06-30 08:11] VITALS: BP 133/74; PULSE 79; RESP 18; TEMP 98.7; O2SAT 94
[2024-06-30 09:30] LABS: BASOPHILS % (AUTO) 0.9 % (0.0-2.0); EOSINOPHILS % (AUTO) 3.2 % (1.0-6.0); HEMATOCRIT 32.3 % (36-46); HEMOGLOBIN 10.9 g/dL (12.0-16.0); LYMPHOCYTES # (AUTO) 1.2 K/uL (1.0-4.8); LYMPHOCYTES % (AUTO) 16.4 % (22.0-44.0); MEAN CORPUSCULAR HEMOGLOBIN 31.7 pg (26.0-34.0); MEAN CORPUSCULAR HGB CONC 33.6 G/dL (31.0-37.0); MEAN CORPUSCULAR VOLUME 94 fL (80-100); MONOCYTES # (AUTO) 1.1 K/uL (0.1-1.0); MONOCYTES % (AUTO) 14.6 % (2.0-9.0); NEUTROPHILS # (AUTO) 4.7 K/uL (1.8-7.7); NEUTROPHILS % (AUTO) 64.9 % (40.0-70.0); PLATELET COUNT (AUTO) 290 K/uL (150-450); RED BLOOD CELL COUNT(AUTO) 3.42 MIL/uL (4.00-5.20); RED CELL DISTRIBUTION WIDTH 14.1 % (11.5-14.5); WHITE BLOOD COUNT (AUTO) 7.3 K/uL (4.5-11.0)
[2024-06-30 09:35] LABS: ANION GAP 5 mmol/L (8-16); CALCIUM, TOTAL 8.7 mg/dL (8.8-10.5); CARBON DIOXIDE 32 mmol/L (22-29); CHLORIDE 99 mmol/L (98-107); CREATININE 0.66 mg/dL (0.60-1.30); GLOMERULAR FILTR. RATE CALC > 60 mL/min (>60); GLUCOSE,RANDOM 208 mg/dL (70-110); POTASSIUM 3.7 mmol/L (3.5-5.1); SODIUM SERUM 136 mmol/L (136-145); UREA NITROGEN, BLOOD 8 mg/dL (7-18)
[2024-06-30 16:03] VITALS: BP 143/76; PULSE 81; RESP 18; TEMP 98.3; O2SAT 93
[2024-06-30 17:46] LABS: GLUCOMETER DEV NAME(LOC) 6S.1D; GLUCOSE,POINT OF CARE 231 MG/DL (70-110)
[2024-06-30 20:19] VITALS: BP 137/74; PULSE 79; RESP 18; TEMP 98.7; O2SAT 97
[2024-06-30 21:35] LABS: GLUCOMETER DEV NAME(LOC) 6S.1D; GLUCOSE,POINT OF CARE 288 MG/DL (70-110)
[2024-06-30 21:56] LABS: GLUCOMETER DEV NAME(LOC) 6N.2B; GLUCOSE,POINT OF CARE 167 MG/DL (70-110)
[2024-07-01 04:56] VITALS: BP 102/53; PULSE 75; RESP 18; TEMP 98.9; O2SAT 92
[2024-07-01 07:33] VITALS: BP 132/69; PULSE 81; RESP 20; TEMP 97.7; O2SAT 97
[2024-07-01 07:41] LABS: GLUCOMETER DEV NAME(LOC) 6N.2B; GLUCOSE,POINT OF CARE 203 MG/DL (70-110)
[2024-07-01 11:55] LABS: GLUCOMETER DEV NAME(LOC) 6S.2; GLUCOSE,POINT OF CARE 209 MG/DL (70-110)
[2024-07-01 13:38] LABS: ANION GAP 4 mmol/L (8-16); CALCIUM, TOTAL 8.6 mg/dL (8.8-10.5); CARBON DIOXIDE 32 mmol/L (22-29); CHLORIDE 98 mmol/L (98-107); CREATININE 0.65 mg/dL (0.60-1.30); GLOMERULAR FILTR. RATE CALC > 60 mL/min (>60); GLUCOSE,RANDOM 204 mg/dL (70-110); POTASSIUM 3.6 mmol/L (3.5-5.1); SODIUM SERUM 134 mmol/L (136-145); UREA NITROGEN, BLOOD 7 mg/dL (7-18)
[2024-07-01 16:30] VITALS: BP 132/57; PULSE 76; RESP 20; TEMP 98.2; O2SAT 96
[2024-07-01 18:46] LABS: GLUCOMETER DEV NAME(LOC) 6N.2B; GLUCOSE,POINT OF CARE 264 MG/DL (70-110)
[2024-07-01 21:00] VITALS: BP 140/65; PULSE 80; RESP 18; TEMP 98; O2SAT 95
[2024-07-02 06:00] VITALS: BP 135/68; PULSE 78; RESP 18; TEMP 98.2; O2SAT 8
[2024-07-02 08:06] LABS: GLUCOMETER DEV NAME(LOC) 6N.2B; GLUCOSE,POINT OF CARE 261 MG/DL (70-110)
[2024-07-02 11:50] LABS: GLUCOMETER DEV NAME(LOC) 6S.2; GLUCOSE,POINT OF CARE 194 MG/DL (70-110)
[2024-07-02 11:50] LABS: GLUCOMETER DEV NAME(LOC) 6S.2; GLUCOSE,POINT OF CARE 200 MG/DL (70-110)
[2024-07-02 15:52] VITALS: BP 121/81; PULSE 84; RESP 18; TEMP 98.1; O2SAT 97
[2024-07-02] MEDS ORDERED: BENZ-227 PO (18:46)
[2024-07-02] MEDS ORDERED: LEVO750T68 PO (18:48)
[2024-07-02] MEDS ORDERED: PANT-31 PO (18:49)
[2024-07-02] MEDS ORDERED: INSU100V SQ (18:50)
[2024-07-02 19:37] VITALS: BP 138/74; PULSE 83; RESP 18; TEMP 98.1; O2SAT 96
[2024-07-02 20:46] LABS: GLUCOMETER DEV NAME(LOC) 6S.2; GLUCOSE,POINT OF CARE 246 MG/DL (70-110)
== END 2024-07-02 20:02 | DRG 190 ==
LOC: 6S 15:51
PROVIDERS: ADMIT Internal Medicine; ATTEND Internal Medicine
DX: J44.0 Chronic obstructive pulmonary disease with (acute) lower respiratory infection (principal); J18.9 Pneumonia, unspecified organism; E87.1 Hypo-osmolality and hyponatremia; J44.1 Chronic obstructive pulmonary disease with (acute) exacerbation; Z20.822 Contact with and (suspected) exposure to COVID-19; I10 Essential (primary) hypertension; M19.90 Unspecified osteoarthritis, unspecified site; E78.5 Hyperlipidemia, unspecified; F25.9 Schizoaffective disorder, unspecified; F32.A Depression, unspecified; Z79.899 Other long term (current) drug therapy
CPT/HCPCS: 80048; 82962; 83036; 85007; 85025; 85027; 87040; 87804; 94640; J1644; J1956; J2405; J7030; J7040

== ENCOUNTER 2024-08-03 13:23 | Inpatient (IN) | payer MEDICARE, MEDICAID ==
[~2024-08-03] VITALS: Ht 165.1 cm; Wt 79.2 kg
[~2024-08-03 13:23] MED LIST changes: +BENZ-227 PO; +INSU100V SQ; +LEVO750T68 PO; +PANT-31 PO
[2024-08-03 14:05] LABS: BASOPHILS % (AUTO) 1.3 % (0.0-2.0); EOSINOPHILS % (AUTO) 0.9 % (1.0-6.0); HEMOGLOBIN 13.7 g/dL (12.0-16.0); LYMPHOCYTES # (AUTO) 2.6 K/uL (1.0-4.8); LYMPHOCYTES % (AUTO) 24.4 % (22.0-44.0); MEAN CORPUSCULAR HEMOGLOBIN 31.5 pg (26.0-34.0); MEAN CORPUSCULAR HGB CONC 32.6 G/dL (31.0-37.0); MEAN CORPUSCULAR VOLUME 97 fL (80-100); MONOCYTES # (AUTO) 0.4 K/uL (0.1-1.0); MONOCYTES % (AUTO) 4.1 % (2.0-9.0); NEUTROPHILS # (AUTO) 7.5 K/uL (1.8-7.7); NEUTROPHILS % (AUTO) 69.3 % (40.0-70.0); PLATELET COUNT (AUTO) 163 K/uL (150-450); RED BLOOD CELL COUNT(AUTO) 4.34 MIL/uL (4.00-5.20); RED CELL DISTRIBUTION WIDTH 15.1 % (11.5-14.5); WHITE BLOOD COUNT (AUTO) 10.8 K/uL (4.5-11.0)
[2024-08-03 14:21] LABS: ANION GAP 12 mmol/L (8-16); CALCIUM, TOTAL 8.7 mg/dL (8.8-10.5); CARBON DIOXIDE 26 mmol/L (22-29); CHLORIDE 97 mmol/L (98-107); CREATININE 0.96 mg/dL (0.60-1.30); GLOMERULAR FILTR. RATE CALC 59 mL/min (>60); SODIUM SERUM 135 mmol/L (136-145); UREA NITROGEN, BLOOD 11 mg/dL (7-18)
[2024-08-03 14:23] LABS: GLUCOSE,RANDOM 523 mg/dL (70-110)
[2024-08-03 14:30] LABS: ALCOHOL, BLOOD (SERUM) < 3 mg/dL (0-10)
[2024-08-03 15:18] LABS: COVID AG,FIA SOURCE NASAL SWAB
[2024-08-03 15:40] LABS: SARS-COV2 (COVID) ANTIGEN,FIA Negative (Negative)
[2024-08-03 15:41] LABS: PH,URINE DRUG SCREEN 5.5 (5.0-8.0)
[2024-08-03 15:48] LABS: AMPHET/METH SCREEN,URINE NEGATIVE (NEGATIVE); BARBITURATE SCREEN, URINE NEGATIVE (NEGATIVE); BENZODIAZEPINES SCREEN,URINE NEGATIVE (NEGATIVE); CANNABINOID SCREEN,URINE NEGATIVE (NEGATIVE); COCAINE SCREEN,URINE NEGATIVE (NEGATIVE); METHADONE SCREEN, URINE NEGATIVE (NEGATIVE); OPIATE SCREEN,URINE NEGATIVE (NEGATIVE); PHENCYCLIDINE SCREEN,URINE NEGATIVE (NEGATIVE)
[2024-08-03 15:50] LABS: ALCOHOL, URINE DRUG SCREEN NEGATIVE (NEGATIVE)
[2024-08-03] MEDS: SODIUM CHLORIDE 0.9% 1,000 ML IV ONE (16:04)
[2024-08-03] MEDS: INSULIN REGULAR, HUMAN 100 UNITS/ML IVP ONE (16:07)
[2024-08-03] MEDS: LORazepam 1 MG TABLET PO ONE (16:21)
[2024-08-03] MEDS: QUEtiapine FUMARATE 100 MG TABLET PO ONE (20:21)
[2024-08-04] MEDS: ChlorproMAZINE HCL 100 MG TABLET PO ONE (03:10)
[2024-08-04 05:16] VITALS: BP 168/93; PULSE 102; RESP 18; TEMP 97.9; O2SAT 98
[2024-08-04] MEDS: INSULIN LISPRO 100 UNITS/ML SQ PRN (07:13)
[2024-08-04 07:15] LABS: GLUCOMETER DEV NAME(LOC) 3E.C; GLUCOSE,POINT OF CARE 394 MG/DL (70-110)
[2024-08-04] MEDS: LORazepam 2 MG TABLET PO PRN (10:11)
[2024-08-04 12:21] LABS: GLUCOMETER DEV NAME(LOC) 3EX.2; GLUCOSE,POINT OF CARE 425 MG/DL (70-110)
[2024-08-04] MEDS: ROPINIRole HCL 0.25 MG TABLET PO SCH (12:24)
[2024-08-04] MEDS: PANTOPRAZOLE SODIUM 40 MG DR TABLET PO SCH (12:24)
[2024-08-04] MEDS: PROPRANOLOL HCL 10 MG TABLET PO SCH (12:25)
[2024-08-04] MEDS: INSULIN LISPRO 100 UNITS/ML SQ ONE (12:35)
[2024-08-04 12:40] LABS: GLUCOMETER DEV NAME(LOC) ER.7; GLUCOSE,POINT OF CARE 361 MG/DL (70-110)
[2024-08-04] MEDS: EMPAGLIFLOZIN 25 MG TABLET PO SCH (13:40)
[2024-08-04] MEDS: DULoxetine HCL 60 MG CAPSULE PO SCH (16:48)
[2024-08-04] MEDS: BENZONATATE 100 MG CAPSULE PO SCH (16:49)
[2024-08-04] MEDS: GABAPENTIN 100 MG CAPSULE PO SCH (16:49)
[2024-08-04] MEDS: DIVALPROEX SODIUM 500 MG DR TABLET PO SCH (16:49)
[2024-08-04] MEDS: MetFORMIN HCL 500 MG TABLET PO SCH (16:50)
[2024-08-04 17:30] LABS: GLUCOMETER DEV NAME(LOC) 3EX.2; GLUCOSE,POINT OF CARE 404 MG/DL (70-110)
[2024-08-04 20:36] LABS: GLUCOMETER DEV NAME(LOC) 3E.C; GLUCOSE,POINT OF CARE 282 MG/DL (70-110)
[2024-08-04] MEDS: TraZODone HCL 50 MG TABLET PO SCH (21:39)
[2024-08-04] MEDS: QUEtiapine FUMARATE 200 MG TABLET PO SCH (21:39)
[2024-08-04] MEDS: PRAZOSIN HCL 1 MG CAPSULE PO SCH (21:39)
[2024-08-04] MEDS: ChlorproMAZINE HCL 100 MG TABLET PO SCH (21:40)
[2024-08-04] MEDS: DONEPEZIL HCL 10 MG TABLET PO SCH (22:04)
[2024-08-05 06:25] LABS: GLUCOMETER DEV NAME(LOC) 3E.C; GLUCOSE,POINT OF CARE 273 MG/DL (70-110)
[2024-08-05] MEDS: NICOTINE 21 MG/24 HOUR PATCH TD SCH (08:19)
[2024-08-05 09:21] VITALS: BP 123/56; PULSE 79; RESP 16; TEMP 97.1; O2SAT 95
[2024-08-05 11:30] LABS: GLUCOMETER DEV NAME(LOC) 3E.C; GLUCOSE,POINT OF CARE 370 MG/DL (70-110)
[2024-08-05 17:15] LABS: GLUCOMETER DEV NAME(LOC) 3EX.2; GLUCOSE,POINT OF CARE 362 MG/DL (70-110)
[2024-08-05 20:30] LABS: GLUCOMETER DEV NAME(LOC) 3E.C; GLUCOSE,POINT OF CARE 244 MG/DL (70-110)
[2024-08-05 22:58] VITALS: BP 100/54; PULSE 80; RESP 17; TEMP 97.3; O2SAT 98
[2024-08-06 06:05] LABS: GLUCOMETER DEV NAME(LOC) 3E.C; GLUCOSE,POINT OF CARE 281 MG/DL (70-110)
[2024-08-06 07:59] LABS: HEMOGLOBIN A1C 10.8 % (3.8-5.6)
[2024-08-06 08:10] LABS: CHOL/HDL RATIO 3.1 (3.9-5.7)
[2024-08-06 08:43] LABS: THYROID STIMULATING HORMONE 1.21 uIU/mL (0.36-3.74)
[2024-08-06 10:31] VITALS: BP 105/72; PULSE 97; RESP 17; TEMP 97.1; O2SAT 98
[2024-08-06 11:25] LABS: GLUCOMETER DEV NAME(LOC) ER.7; GLUCOSE,POINT OF CARE 303 MG/DL (70-110)
[2024-08-06 11:51] LABS: GLUCOMETER DEV NAME(LOC) 3EX.2; GLUCOSE,POINT OF CARE 203 MG/DL (70-110)
[2024-08-06] MEDS: NYSTATIN 15 GM POWDER BOTTLE TP SCH (12:18)
[2024-08-06 20:16] LABS: GLUCOMETER DEV NAME(LOC) 3EX.2; GLUCOSE,POINT OF CARE 290 MG/DL (70-110)
[2024-08-06] MEDS: INSULIN GLARGINE,HUM.REC.ANLOG 100 UNITS/ML SQ SCH (21:05)
[2024-08-06 22:09] VITALS: BP 101/59; PULSE 82; RESP 20; TEMP 97.3; O2SAT 97
[2024-08-07 05:51] LABS: GLUCOMETER DEV NAME(LOC) 3E.C; GLUCOSE,POINT OF CARE 248 MG/DL (70-110)
[2024-08-07 10:31] VITALS: BP 124/73; PULSE 89; RESP 18; TEMP 97.5; O2SAT 96
[2024-08-07 11:55] LABS: GLUCOMETER DEV NAME(LOC) 3EX.2; GLUCOSE,POINT OF CARE 331 MG/DL (70-110)
[2024-08-07 14:40] VITALS: BP 106/62; PULSE 79
[2024-08-07] MEDS: LORazepam 0.5 MG TABLET PO PRN (14:43)
[2024-08-07 16:40] LABS: GLUCOMETER DEV NAME(LOC) 3EX.2; GLUCOSE,POINT OF CARE 213 MG/DL (70-110)
[2024-08-07 20:26] LABS: GLUCOMETER DEV NAME(LOC) 3E.C; GLUCOSE,POINT OF CARE 197 MG/DL (70-110)
[2024-08-07 20:50] VITALS: BP 126/61; PULSE 72; RESP 17; TEMP 97.2; O2SAT 95
[2024-08-08 06:06] LABS: GLUCOMETER DEV NAME(LOC) 3E.C; GLUCOSE,POINT OF CARE 188 MG/DL (70-110)
[2024-08-08 07:10] VITALS: BP 143/74; RESP 18; O2SAT 97
[2024-08-08 08:00] VITALS: BP 133/77; PULSE 70; RESP 18; TEMP 97.2; O2SAT 97
[2024-08-08] MEDS: GABAPENTIN 100 MG CAPSULE PO SCH (09:27)
[2024-08-08] MEDS: ChlorproMAZINE HCL 100 MG TABLET PO SCH (09:28)
[2024-08-08 12:05] LABS: GLUCOMETER DEV NAME(LOC) 3EX.2; GLUCOSE,POINT OF CARE 328 MG/DL (70-110)
[2024-08-08 16:35] LABS: GLUCOMETER DEV NAME(LOC) 3EX.2; GLUCOSE,POINT OF CARE 231 MG/DL (70-110)
[2024-08-08] MEDS: OXYBUTYNIN CHLORIDE 5 MG TABLET PO SCH (18:32)
[2024-08-08 20:21] LABS: GLUCOMETER DEV NAME(LOC) 3E.C; GLUCOSE,POINT OF CARE 276 MG/DL (70-110)
[2024-08-08 22:47] VITALS: BP 100/59; PULSE 71; RESP 18; TEMP 98.5; O2SAT 96
[2024-08-09 06:26] LABS: GLUCOMETER DEV NAME(LOC) 3E.C; GLUCOSE,POINT OF CARE 233 MG/DL (70-110)
[2024-08-09] MEDS: OMEGA-3/DHA/EPA/FISH OIL 1,000 MG CAPSULE PO SCH (08:19)
[2024-08-09] MEDS: MODAFINIL 100 MG TABLET PO SCH (08:21)
[2024-08-09] MEDS: ChlorproMAZINE HCL 50 MG TABLET PO SCH (08:23)
[2024-08-09 09:29] VITALS: BP 102/63; PULSE 77; RESP 19; TEMP 97.7; O2SAT 96
[2024-08-09 12:01] LABS: GLUCOMETER DEV NAME(LOC) 3EX.2; GLUCOSE,POINT OF CARE 224 MG/DL (70-110)
[2024-08-09 16:51] LABS: GLUCOMETER DEV NAME(LOC) 3EX.2; GLUCOSE,POINT OF CARE 377 MG/DL (70-110)
[2024-08-09 20:30] LABS: GLUCOMETER DEV NAME(LOC) 3E.C; GLUCOSE,POINT OF CARE 323 MG/DL (70-110)
[2024-08-09 22:59] VITALS: BP 116/67; PULSE 82; RESP 18; TEMP 97; O2SAT 96
[2024-08-10 06:26] LABS: GLUCOMETER DEV NAME(LOC) 3E.C; GLUCOSE,POINT OF CARE 230 MG/DL (70-110)
[2024-08-10 11:23] VITALS: BP 136/75; PULSE 80; RESP 18; TEMP 97.3; O2SAT 96
[2024-08-10 11:45] LABS: GLUCOMETER DEV NAME(LOC) 3EX.2; GLUCOSE,POINT OF CARE 388 MG/DL (70-110)
[2024-08-10] MEDS: GuaiFENesin/D-METHORPHAN [SUGAR-FREE] 200-20MG/10 ML SYRUP UDCUP PO PRN (13:12)
[2024-08-10 17:30] LABS: GLUCOMETER DEV NAME(LOC) 3EX.2; GLUCOSE,POINT OF CARE 314 MG/DL (70-110)
[2024-08-10 20:30] LABS: GLUCOMETER DEV NAME(LOC) 3E.C; GLUCOSE,POINT OF CARE 316 MG/DL (70-110)
[2024-08-10] MEDS: ChlorproMAZINE HCL 25 MG TABLET PO SCH (20:41)
[2024-08-10 23:11] VITALS: BP 147/82; PULSE 84; RESP 18; TEMP 98.2; O2SAT 97
[2024-08-11 06:30] LABS: GLUCOMETER DEV NAME(LOC) 3E.C; GLUCOSE,POINT OF CARE 304 MG/DL (70-110)
[2024-08-11] MEDS: GABAPENTIN 100 MG CAPSULE PO SCH (09:32)
[2024-08-11] MEDS: MODAFINIL 100 MG TABLET PO SCH (09:35)
[2024-08-11 11:26] LABS: GLUCOMETER DEV NAME(LOC) 3EX.2; GLUCOSE,POINT OF CARE 268 MG/DL (70-110)
[2024-08-11 11:31] VITALS: BP 127/71; PULSE 75; RESP 17; TEMP 96.8; O2SAT 100
[2024-08-11 12:47] VITALS: BP 133/89; PULSE 79; RESP 18; O2SAT 97
[2024-08-11] MEDS: ACETAMINOPHEN 325 MG TABLET PO PRN (13:32)
[2024-08-11 14:32] VITALS: BP 129/85; PULSE 87; RESP 18
[2024-08-11 16:30] LABS: GLUCOMETER DEV NAME(LOC) 3EX.2; GLUCOSE,POINT OF CARE 346 MG/DL (70-110)
[2024-08-11 20:15] LABS: GLUCOMETER DEV NAME(LOC) 3E.C; GLUCOSE,POINT OF CARE 300 MG/DL (70-110)
[2024-08-11 21:15] VITALS: BP 111/64; PULSE 74; RESP 18; TEMP 97.6; O2SAT 96
[2024-08-12 07:01] LABS: GLUCOMETER DEV NAME(LOC) 3E.C; GLUCOSE,POINT OF CARE 269 MG/DL (70-110)
[2024-08-12 09:41] VITALS: BP 119/77; PULSE 80; RESP 18; TEMP 98; O2SAT 96
[2024-08-12 10:40] VITALS: RESP 18
[2024-08-12 12:16] LABS: GLUCOMETER DEV NAME(LOC) 3EX.2; GLUCOSE,POINT OF CARE 316 MG/DL (70-110)
[2024-08-12 17:26] LABS: GLUCOMETER DEV NAME(LOC) 3EX.2; GLUCOSE,POINT OF CARE 270 MG/DL (70-110)
[2024-08-12 20:15] LABS: GLUCOMETER DEV NAME(LOC) 3E.C; GLUCOSE,POINT OF CARE 268 MG/DL (70-110)
[2024-08-12 21:24] VITALS: BP 126/87; PULSE 78; RESP 19; TEMP 97.5; O2SAT 97
[2024-08-12 21:55] VITALS: BP 130/77; PULSE 75; RESP 18; TEMP 97; O2SAT 98
[2024-08-12 22:58] VITALS: RESP 18
[2024-08-13 07:25] LABS: GLUCOMETER DEV NAME(LOC) 3E.C; GLUCOSE,POINT OF CARE 247 MG/DL (70-110)
[2024-08-13 09:39] VITALS: BP 143/65; PULSE 79; RESP 18; TEMP 97.8; O2SAT 98
[2024-08-13 10:49] VITALS: RESP 18
[2024-08-13 13:16] VITALS: BP 118/68; PULSE 74; RESP 18; TEMP 97.5; O2SAT 98
[2024-08-13 13:25] LABS: GLUCOMETER DEV NAME(LOC) 3EX.2; GLUCOSE,POINT OF CARE 292 MG/DL (70-110)
[2024-08-13 16:30] VITALS: BP 128/66; PULSE 82; RESP 18; TEMP 97.8; O2SAT 97
[2024-08-13 17:55] LABS: GLUCOMETER DEV NAME(LOC) 3EX.2; GLUCOSE,POINT OF CARE 399 MG/DL (70-110)
[2024-08-13 20:46] LABS: GLUCOMETER DEV NAME(LOC) 3EX.2; GLUCOSE,POINT OF CARE 236 MG/DL (70-110)
[2024-08-13 22:13] VITALS: BP 122/78; PULSE 75; RESP 18; TEMP 98.2; O2SAT 95
[2024-08-14 06:11] LABS: GLUCOMETER DEV NAME(LOC) 3EX.2; GLUCOSE,POINT OF CARE 193 MG/DL (70-110)
[2024-08-14 09:00] VITALS: BP 119/56; PULSE 72; RESP 18; TEMP 97.3
[2024-08-14] MEDS: MODAFINIL 100 MG TABLET PO SCH (09:59)
[2024-08-14] MEDS: GABAPENTIN 100 MG CAPSULE PO SCH (10:01)
[2024-08-14 12:15] LABS: GLUCOMETER DEV NAME(LOC) 3EX.2; GLUCOSE,POINT OF CARE 383 MG/DL (70-110)
[2024-08-14 15:10] VITALS: BP 120/62; PULSE 76; RESP 18; TEMP 98.2
[2024-08-14 16:10] VITALS: BP 104/55; PULSE 77; RESP 18; TEMP 97.4
[2024-08-14 17:30] LABS: GLUCOMETER DEV NAME(LOC) 3EX.2; GLUCOSE,POINT OF CARE 348 MG/DL (70-110)
[2024-08-14 20:30] LABS: GLUCOMETER DEV NAME(LOC) 3EX.2; GLUCOSE,POINT OF CARE 231 MG/DL (70-110)
[2024-08-14 21:20] VITALS: BP 143/63; PULSE 79; RESP 18; TEMP 98; O2SAT 96
[2024-08-14] MEDS: ZOLPIDEM TARTRATE 10 MG TABLET PO PRN (22:49)
[2024-08-15 06:45] LABS: GLUCOMETER DEV NAME(LOC) 3EX.2; GLUCOSE,POINT OF CARE 264 MG/DL (70-110)
[2024-08-15 08:46] VITALS: BP 123/75; PULSE 72; RESP 19; TEMP 97.6; O2SAT 98
[2024-08-15 10:57] VITALS: BP 122/71; PULSE 74; RESP 17; TEMP 98; O2SAT 98
[2024-08-15 11:16] LABS: GLUCOMETER DEV NAME(LOC) 3E.C; GLUCOSE,POINT OF CARE 332 MG/DL (70-110)
[2024-08-15 11:57] VITALS: BP 139/78; PULSE 78; RESP 17; TEMP 98
[2024-08-15 12:26] LABS: APPEARANCE,URINE CLEAR (CLEAR); BILIRUBIN,URINE NEGATIVE (NEGATIVE); COLOR,URINE LIGHT YELLOW (YELLOW); GLUCOSE, URINE (UA) >=1000 mg/dL (NEGATIVE); KETONES,URINE TRACE mg/dL (NEGATIVE); LEUKOCYTE ESTERASE ,URINE MODERATE (NEGATIVE); NITRATE,URINE NEGATIVE (NEGATIVE); OCCULT BLOOD,URINE NEGATIVE (NEGATIVE); PH,URINE 5.5 (5.0-8.0); PROTEIN,URINE NEGATIVE (NEGATIVE); UROBILINOGEN,URINE <=1.0 mg/dL (<=1.0)
[2024-08-15 12:36] LABS: BACTERIA,URINE Few /HPF (None Seen); RBC,URINE 0-2 /HPF (0-2); SQUAMOUS EPITHELIAL CELL,UR Moderate /LPF (None Seen); YEAST,URINE Few /HPF (None Seen)
[2024-08-15 17:26] LABS: GLUCOMETER DEV NAME(LOC) 3E.C; GLUCOSE,POINT OF CARE 283 MG/DL (70-110)
[2024-08-15] MEDS: FLUCONAZOLE 150 MG TABLET PO ONE (17:31)
[2024-08-15] MEDS: NITROFURANTOIN MONOHYD/M-CRYST 100 MG CAPSULE [MACROBID] PO SCH (17:31)
[2024-08-15 20:30] VITALS: BP 130/61; PULSE 76; RESP 18; TEMP 97.5; O2SAT 95
[2024-08-15 21:01] LABS: GLUCOMETER DEV NAME(LOC) 3EX.2; GLUCOSE,POINT OF CARE 314 MG/DL (70-110)
[2024-08-16 06:31] LABS: GLUCOMETER DEV NAME(LOC) 3EX.2; GLUCOSE,POINT OF CARE 195 MG/DL (70-110)
[2024-08-16 10:50] LABS: GLUCOMETER DEV NAME(LOC) 3E.I 2; GLUCOSE,POINT OF CARE 335 MG/DL (70-110)
[2024-08-16 11:35] VITALS: BP 110/54; PULSE 62; RESP 19; TEMP 98.4; O2SAT 99
[2024-08-16] MEDS ORDERED: ALBUTEROL SULFATE HFA 90 MCG/PUFF 8 GM INHALER IH PRN (16:00)
[2024-08-16 16:40] LABS: GLUCOMETER DEV NAME(LOC) 3E.I 2; GLUCOSE,POINT OF CARE 316 MG/DL (70-110)
[2024-08-16 20:00] VITALS: BP 125/72; PULSE 77; RESP 19; TEMP 97.5; O2SAT 97
[2024-08-16 20:30] LABS: GLUCOMETER DEV NAME(LOC) 3E.I 2; GLUCOSE,POINT OF CARE 259 MG/DL (70-110)
[2024-08-17 06:26] LABS: GLUCOMETER DEV NAME(LOC) 3E.I 2; GLUCOSE,POINT OF CARE 225 MG/DL (70-110)
[2024-08-17 09:00] VITALS: BP 140/72; PULSE 83; RESP 17; TEMP 98; O2SAT 98
[2024-08-17 11:46] LABS: GLUCOMETER DEV NAME(LOC) 3EX.2; GLUCOSE,POINT OF CARE 289 MG/DL (70-110)
[2024-08-17 13:00] VITALS: BP 134/78; PULSE 81; RESP 18; TEMP 97.9; O2SAT 98
[2024-08-17 16:01] VITALS: BP 110/65; PULSE 82; RESP 18; TEMP 97.5; O2SAT 99
[2024-08-17 17:40] LABS: GLUCOMETER DEV NAME(LOC) 3EX.2; GLUCOSE,POINT OF CARE 412 MG/DL (70-110)
[2024-08-17 20:28] VITALS: BP 138/69; PULSE 70; RESP 18; TEMP 98; O2SAT 95
[2024-08-17 21:25] VITALS: BP 126/78; PULSE 83; RESP 19; TEMP 97.6; O2SAT 98
[2024-08-17] MEDS: INSULIN GLARGINE,HUM.REC.ANLOG 100 UNITS/ML SQ SCH (21:26)
[2024-08-17 21:45] LABS: GLUCOMETER DEV NAME(LOC) 3EX.2; GLUCOSE,POINT OF CARE 314 MG/DL (70-110)
[2024-08-17 22:29] VITALS: RESP 18
[2024-08-18 07:00] LABS: GLUCOMETER DEV NAME(LOC) 3EX.2; GLUCOSE,POINT OF CARE 172 MG/DL (70-110)
[2024-08-18 09:26] VITALS: BP 101/69; PULSE 68; RESP 18; TEMP 96.9; O2SAT 99
[2024-08-18] MEDS: MODAFINIL 100 MG TABLET PO SCH (10:13)
[2024-08-18 10:16] VITALS: BP 126/64; PULSE 78; RESP 18
[2024-08-18 11:56] LABS: GLUCOMETER DEV NAME(LOC) 3E.I 2; GLUCOSE,POINT OF CARE 374 MG/DL (70-110)
[2024-08-18 17:35] LABS: GLUCOMETER DEV NAME(LOC) 3E.I 2; GLUCOSE,POINT OF CARE 256 MG/DL (70-110)
[2024-08-18 18:02] VITALS: BP 101/61; PULSE 61; RESP 17; TEMP 97; O2SAT 99
[2024-08-18 18:09] LABS: CHLORPROMAZINE 50 ng/mL (30-300)
[2024-08-18 19:02] VITALS: BP 111/69; PULSE 78; RESP 17; TEMP 98
[2024-08-18 20:56] VITALS: BP 105/71; PULSE 75; RESP 18; TEMP 97.9; O2SAT 97
[2024-08-19 03:16] LABS: GLUCOMETER DEV NAME(LOC) 3EX.2; GLUCOSE,POINT OF CARE 276 MG/DL (70-110)
[2024-08-19 07:00] LABS: GLUCOMETER DEV NAME(LOC) 3E.I 2; GLUCOSE,POINT OF CARE 216 MG/DL (70-110)
[2024-08-19 09:38] VITALS: BP 119/61; PULSE 94; RESP 17; TEMP 97.8; O2SAT 97
[2024-08-19 11:45] LABS: GLUCOMETER DEV NAME(LOC) 3E.I 2; GLUCOSE,POINT OF CARE 164 MG/DL (70-110)
[2024-08-19 15:11] VITALS: BP 120/68; PULSE 76; RESP 18
[2024-08-19 16:10] VITALS: RESP 17
[2024-08-19 16:38] VITALS: BP 124/72; PULSE 84; RESP 18
[2024-08-19 17:35] LABS: GLUCOMETER DEV NAME(LOC) 3E.I 2; GLUCOSE,POINT OF CARE 305 MG/DL (70-110)
[2024-08-19 21:07] VITALS: BP 99/60; PULSE 63; RESP 18; TEMP 97.7
[2024-08-19 21:10] LABS: GLUCOMETER DEV NAME(LOC) 3EX.2; GLUCOSE,POINT OF CARE 171 MG/DL (70-110)
[2024-08-19 23:29] VITALS: BP 101/50; PULSE 72; RESP 18; TEMP 97.5
[2024-08-20 06:11] LABS: GLUCOMETER DEV NAME(LOC) 3EX.2; GLUCOSE,POINT OF CARE 177 MG/DL (70-110)
[2024-08-20 08:59] VITALS: BP 136/75; PULSE 84; RESP 18; TEMP 98.7; O2SAT 98
[2024-08-20 12:00] LABS: GLUCOMETER DEV NAME(LOC) 3EX.2; GLUCOSE,POINT OF CARE 264 MG/DL (70-110)
[2024-08-20 15:25] VITALS: BP 138/79; PULSE 85; RESP 18; TEMP 98.7; O2SAT 99
[2024-08-20 16:25] VITALS: BP 137/77; PULSE 86; RESP 17; TEMP 98.7; O2SAT 97
[2024-08-20 17:31] LABS: GLUCOMETER DEV NAME(LOC) 3EX.2; GLUCOSE,POINT OF CARE 277 MG/DL (70-110)
[2024-08-20] MEDS: OXYBUTYNIN CHLORIDE 5 MG TABLET PO SCH (17:36)
[2024-08-20 20:46] LABS: GLUCOMETER DEV NAME(LOC) 3E.I 2; GLUCOSE,POINT OF CARE 251 MG/DL (70-110)
[2024-08-20 21:57] VITALS: BP 142/90; PULSE 64; RESP 18; TEMP 98; O2SAT 95
[2024-08-21 06:15] LABS: GLUCOMETER DEV NAME(LOC) 3EX.2; GLUCOSE,POINT OF CARE 236 MG/DL (70-110)
[2024-08-21] MEDS ORDERED: DULO-113 PO (09:40)
[2024-08-21] MEDS ORDERED: MODA100T65 PO (09:40)
[2024-08-21] MEDS ORDERED: CHLO25TA70 PO (09:40)
[2024-08-21] MEDS ORDERED: DONE-51 PO (09:40)
[2024-08-21] MEDS ORDERED: DIVA-112 PO (09:40)
[2024-08-21] MEDS ORDERED: OMEG100033 PO (09:40)
[2024-08-21 10:57] VITALS: BP 130/83; PULSE 80; RESP 18; TEMP 97.9; O2SAT 97
[2024-08-21 11:36] LABS: GLUCOMETER DEV NAME(LOC) 3EX.2; GLUCOSE,POINT OF CARE 223 MG/DL (70-110)
[2024-08-21] MEDS ORDERED: OXYB5TAB20 PO (15:19)
[2024-08-21] MEDS ORDERED: INSLAN SQ (15:19)
[2024-08-21] MEDS ORDERED: NITR-75 PO (15:20)
[2024-08-21] MEDS ORDERED: GABA-1216 PO (15:20)
[2024-08-21] MEDS ORDERED: METF-1211 PO (15:21)
== END 2024-08-21 16:44 | disposition home or self-care (01) | DRG 885 ==
LOC: EMS 13:24 → 3EX 08-04 04:40 → UNDOADMIN 08-04 04:53 → 3EX 08-04 04:53
PROVIDERS: ADMIT Psychiatry & Neurology Psychiatry; ATTEND Psychiatry & Neurology Psychiatry
PROC: GZHZZZZ Group Psychotherapy (ICD-10-PCS; principal; 2024-08-05)
PROC: GZ56ZZZ Individual Psychotherapy, Supportive (ICD-10-PCS; 2024-08-05)
DX: F25.0 Schizoaffective disorder, bipolar type (principal); R45.851 Suicidal ideations; G47.00 Insomnia, unspecified; Z20.822 Contact with and (suspected) exposure to COVID-19; S61.511A Laceration without foreign body of right wrist, initial encounter; S61.512A Laceration without foreign body of left wrist, initial encounter; F17.210 Nicotine dependence, cigarettes, uncomplicated; Z60.8 Other problems related to social environment; F41.0 Panic disorder [episodic paroxysmal anxiety]; J44.9 Chronic obstructive pulmonary disease, unspecified; I10 Essential (primary) hypertension; X58.XXXA Exposure to other specified factors, initial encounter; Z91.199 Patient's noncompliance with other medical treatment and regimen due to unspecified reason; Z56.0 Unemployment, unspecified; Z63.9 Problem related to primary support group, unspecified; Z59.9 Problem related to housing and economic circumstances, unspecified; Z65.3 Problems related to other legal circumstances; Z55.9 Problems related to education and literacy, unspecified; Z91.148 Patient's other noncompliance with medication regimen for other reason; Y93.89 Activity, other specified; Y92.89 Other specified places as the place of occurrence of the external cause; Y99.8 Other external cause status; E11.9 Type 2 diabetes mellitus without complications
CPT/HCPCS: 71046; 80048; 80061; 80164; 80307; 80342; 81001; 82962; 83036; 84443; 85025; 87086; 99285; G0378; G0480; J1815; J7030; 36415-L1; 36415-TC

== ENCOUNTER 2024-08-22 16:36 | Emergency (ER) | payer MEDICARE, OTHER ==
[~2024-08-22] VITALS: Ht 165.1 cm; Wt 78.6 kg
[~2024-08-22 16:36] MED LIST changes: +CHLO25TA70 PO; +DIVA-112 PO; -DIVA-153 PO; +DONE-51 PO; -DONE-52 PO; +DULO-113 PO; -DULO-114 PO; +INSLAN SQ; -LEVO750T68 PO; +METF-1211 PO; +MODA100T65 PO; +NITR-75 PO; +OMEG100033 PO; +OXYB5TAB20 PO; -PANT-31 PO
[2024-08-22 16:45] VITALS: BP 161/99; PULSE 88; RESP 18; TEMP 98.2; O2SAT 99
[2024-08-22 18:33] LABS: BASOPHILS % (AUTO) 1.3 % (0.0-2.0); EOSINOPHILS % (AUTO) 1.7 % (1.0-6.0); HEMATOCRIT 42.8 % (36-46); HEMOGLOBIN 14.2 g/dL (12.0-16.0); LYMPHOCYTES # (AUTO) 1.9 K/uL (1.0-4.8); LYMPHOCYTES % (AUTO) 31.4 % (22.0-44.0); MEAN CORPUSCULAR HEMOGLOBIN 31.6 pg (26.0-34.0); MEAN CORPUSCULAR HGB CONC 33.3 G/dL (31.0-37.0); MEAN CORPUSCULAR VOLUME 95 fL (80-100); MONOCYTES # (AUTO) 0.6 K/uL (0.1-1.0); MONOCYTES % (AUTO) 9.4 % (2.0-9.0); NEUTROPHILS # (AUTO) 3.4 K/uL (1.8-7.7); NEUTROPHILS % (AUTO) 56.2 % (40.0-70.0); PLATELET COUNT (AUTO) 240 K/uL (150-450); RED BLOOD CELL COUNT(AUTO) 4.51 MIL/uL (4.00-5.20); RED CELL DISTRIBUTION WIDTH 14.5 % (11.5-14.5); WHITE BLOOD COUNT (AUTO) 6.1 K/uL (4.5-11.0)
[2024-08-22 18:41] LABS: ANION GAP 5 mmol/L (8-16); CALCIUM, TOTAL 8.9 mg/dL (8.8-10.5); CARBON DIOXIDE 29 mmol/L (22-29); CHLORIDE 97 mmol/L (98-107); CREATININE 1.13 mg/dL (0.60-1.30); GLOMERULAR FILTR. RATE CALC 49 mL/min (>60); GLUCOSE,RANDOM 213 mg/dL (70-110); SODIUM SERUM 131 mmol/L (136-145); UREA NITROGEN, BLOOD 24 mg/dL (7-18)
[2024-08-22] MEDS: LORazepam 2 MG TABLET PO ONE (18:47)
[2024-08-22 18:50] LABS: ALCOHOL, BLOOD (SERUM) < 3 mg/dL (0-10)
[2024-08-22 18:59] LABS: COVID AG,FIA SOURCE NPH
[2024-08-22 19:18] LABS: SARS-COV2 (COVID) ANTIGEN,FIA Negative (Negative)
[2024-08-22 19:36] LABS: APPEARANCE,URINE CLEAR (CLEAR); BILIRUBIN,URINE NEGATIVE (NEGATIVE); COLOR,URINE YELLOW (YELLOW); GLUCOSE, URINE (UA) >=1000 mg/dL (NEGATIVE); KETONES,URINE 40-60 mg/dL (NEGATIVE); LEUKOCYTE ESTERASE ,URINE NEGATIVE (NEGATIVE); NITRATE,URINE NEGATIVE (NEGATIVE); OCCULT BLOOD,URINE NEGATIVE (NEGATIVE); PH,URINE 5.5 (5.0-8.0); PH,URINE DRUG SCREEN 5.5 (5.0-8.0); PROTEIN,URINE TRACE mg/dL (NEGATIVE); SPECIFIC GRAVITIY, URINE 1.036 (1.003-1.030)
[2024-08-22 19:42] LABS: ALCOHOL, URINE DRUG SCREEN NEGATIVE (NEGATIVE); AMPHET/METH SCREEN,URINE NEGATIVE (NEGATIVE); BARBITURATE SCREEN, URINE NEGATIVE (NEGATIVE); BENZODIAZEPINES SCREEN,URINE NEGATIVE (NEGATIVE); CANNABINOID SCREEN,URINE NEGATIVE (NEGATIVE); COCAINE SCREEN,URINE NEGATIVE (NEGATIVE); METHADONE SCREEN, URINE NEGATIVE (NEGATIVE); OPIATE SCREEN,URINE NEGATIVE (NEGATIVE); PHENCYCLIDINE SCREEN,URINE NEGATIVE (NEGATIVE)
[2024-08-22 19:51] LABS: BACTERIA,URINE Rare /HPF (None Seen); RBC,URINE None Seen /HPF (0-2); SQUAMOUS EPITHELIAL CELL,UR Rare /LPF (None Seen)
== END 2024-08-22 23:07 | disposition home or self-care (01) ==
LOC: EMS 16:36
DX: F25.0 Schizoaffective disorder, bipolar type (principal); R45.851 Suicidal ideations; E11.9 Type 2 diabetes mellitus without complications; F41.9 Anxiety disorder, unspecified; Z79.84 Long term (current) use of oral hypoglycemic drugs; Z79.899 Other long term (current) drug therapy; F17.210 Nicotine dependence, cigarettes, uncomplicated; Z20.822 Contact with and (suspected) exposure to COVID-19
CPT/HCPCS: 99285; 87426; 80048; 85025; 36415; 80307; 81001; G0480

== ENCOUNTER 2024-08-23 11:27 | Inpatient (IN) | payer MEDICARE, OTHER ==
[~2024-08-23] VITALS: Ht 162.6 cm; Wt 75.9 kg
[2024-08-23 12:06] LABS: BASOPHILS % (AUTO) 1.1 % (0.0-2.0); HEMATOCRIT 43.5 % (36-46); HEMOGLOBIN 14.4 g/dL (12.0-16.0); LYMPHOCYTES # (AUTO) 1.4 K/uL (1.0-4.8); LYMPHOCYTES % (AUTO) 27.8 % (22.0-44.0); MEAN CORPUSCULAR HEMOGLOBIN 31.7 pg (26.0-34.0); MEAN CORPUSCULAR HGB CONC 33.1 G/dL (31.0-37.0); MEAN CORPUSCULAR VOLUME 96 fL (80-100); MONOCYTES # (AUTO) 0.6 K/uL (0.1-1.0); MONOCYTES % (AUTO) 11.8 % (2.0-9.0); NEUTROPHILS # (AUTO) 2.9 K/uL (1.8-7.7); NEUTROPHILS % (AUTO) 58.3 % (40.0-70.0); PLATELET COUNT (AUTO) 240 K/uL (150-450); RED BLOOD CELL COUNT(AUTO) 4.53 MIL/uL (4.00-5.20)
[2024-08-23] MEDS ORDERED: ZOLPIDEM TARTRATE 10 MG TABLET PO PRN (12:15)
[2024-08-23 12:26] LABS: GLUCOMETER DEV NAME(LOC) ER.7; GLUCOSE,POINT OF CARE 254 MG/DL (70-110)
[2024-08-23 12:30] LABS: ANION GAP 9 mmol/L (8-16); CALCIUM, TOTAL 8.9 mg/dL (8.8-10.5); CARBON DIOXIDE 28 mmol/L (22-29); CHLORIDE 99 mmol/L (98-107); GLOMERULAR FILTR. RATE CALC > 60 mL/min (>60); GLUCOSE,RANDOM 240 mg/dL (70-110); POTASSIUM 4.4 mmol/L (3.5-5.1); SODIUM SERUM 136 mmol/L (136-145); UREA NITROGEN, BLOOD 24 mg/dL (7-18)
[2024-08-23 12:34] LABS: ALBUMIN 2.9 g/dL (3.4-5.0); BILIRUBIN,DIRECT 0.1 mg/dL (0.00-0.20); BILIRUBIN,TOTAL 0.3 mg/dL (0.1-1.0); TOTAL PROTEIN, SERUM 6.3 g/dL (6.4-8.2)
[2024-08-23 12:35] LABS: SALICYLATE 4.7 mg/dL (2.8-20.0)
[2024-08-23 12:41] LABS: ACETAMINOPHEN < 2 mcg/mL (10-30); VALPROIC ACID 23 mcg/mL (50-100)
[2024-08-23 12:43] LABS: ALCOHOL, BLOOD (SERUM) < 3 mg/dL (0-10)
[2024-08-23 13:19] LABS: COVID AG,FIA SOURCE NASAL SWAB
[2024-08-23 13:45] LABS: SARS-COV2 (COVID) ANTIGEN,FIA Negative (Negative)
[2024-08-23] MEDS: SODIUM CHLORIDE 0.9% 1,000 ML IV ONE (14:54)
[2024-08-23] MEDS: MIDODRINE HCL 5 MG TABLET PO ONE (15:25)
[2024-08-23] MEDS ORDERED: NOREPINEPHRINE 8 MG/0.9 % NACL 250 ML IV PRN (15:45)
[2024-08-23] MEDS: SODIUM CHLORIDE 0.9% 1,000 ML IV SCH (15:52)
[2024-08-23] MEDS ORDERED: MORPHINE SULFATE 2 MG/ML SYRINGE IVP PRN (18:00)
[2024-08-23] MEDS ORDERED: MAGNESIUM HYDROXIDE SUSPENSION 30 ML UDCUP PO PRN (18:00)
[2024-08-23] MEDS ORDERED: DEXTROSE 50%-WATER 25 GM/50 ML SYRINGE IVP PRN (18:00)
[2024-08-23] MEDS ORDERED: BISACODYL 10 MG RECTAL RECTAL SUPPOSITORY PR PRN (18:00)
[2024-08-23 18:58] LABS: TROPONIN I-HIGH SENSITIVITY 6 ng/L (<51)
[2024-08-23] MEDS: DOCUSATE SODIUM 100 MG CAPSULE PO SCH (20:05)
[2024-08-23 20:41] LABS: GLUCOMETER DEV NAME(LOC) ER.7; GLUCOSE,POINT OF CARE 113 MG/DL (70-110)
[2024-08-23 22:02] VITALS: BP 109/60; PULSE 78; RESP 18; TEMP 98.3; O2SAT 95
[2024-08-23] MEDS: ZOLPIDEM TARTRATE 5 MG TABLET PO PRN (22:34)
[2024-08-24] VITALS (8 sets, daily range): BP systolic 98–145; BP diastolic 54–83; PULSE 60–77; RESP 17–19; TEMP 97.2–98.2; O2SAT 96–99
[2024-08-24] MEDS: HEPARIN SODIUM,PORCINE 5,000 UNITS/ML VIAL SQ SCH
[2024-08-24 05:46] LABS: GLUCOMETER DEV NAME(LOC) 5S.2D; GLUCOSE,POINT OF CARE 181 MG/DL (70-110)
[2024-08-24 07:05] LABS: HEMOGLOBIN A1C 9.7 % (3.8-5.6)
[2024-08-24 07:17] LABS: CHOL/HDL RATIO 5.7 (3.9-5.7)
[2024-08-24 07:19] LABS: ALCOHOL, URINE DRUG SCREEN NEGATIVE (NEGATIVE); AMPHET/METH SCREEN,URINE NEGATIVE (NEGATIVE); BARBITURATE SCREEN, URINE NEGATIVE (NEGATIVE); BENZODIAZEPINES SCREEN,URINE NEGATIVE (NEGATIVE); CANNABINOID SCREEN,URINE NEGATIVE (NEGATIVE); COCAINE SCREEN,URINE NEGATIVE (NEGATIVE); METHADONE SCREEN, URINE NEGATIVE (NEGATIVE); OPIATE SCREEN,URINE NEGATIVE (NEGATIVE); PHENCYCLIDINE SCREEN,URINE NEGATIVE (NEGATIVE)
[2024-08-24 07:24] LABS: APPEARANCE,URINE CLEAR (CLEAR); BILIRUBIN,URINE NEGATIVE (NEGATIVE); COLOR,URINE LIGHT YELLOW (YELLOW); GLUCOSE, URINE (UA) >=1000 mg/dL (NEGATIVE); LEUKOCYTE ESTERASE ,URINE TRACE (NEGATIVE); NITRATE,URINE NEGATIVE (NEGATIVE); OCCULT BLOOD,URINE NEGATIVE (NEGATIVE); PROTEIN,URINE NEGATIVE (NEGATIVE); SPECIFIC GRAVITIY, URINE 1.008 (1.003-1.030); UROBILINOGEN,URINE <=1.0 mg/dL (<=1.0)
[2024-08-24 08:10] LABS: BACTERIA,URINE Moderate /HPF (None Seen); RBC,URINE None Seen /HPF (0-2); SQUAMOUS EPITHELIAL CELL,UR Few /LPF (None Seen); WBC,URINE 0-2 /HPF (0-5); YEAST,URINE Few /HPF (None Seen)
[2024-08-24] MEDS: PANTOPRAZOLE SODIUM 40 MG DR TABLET PO SCH (08:16)
[2024-08-24] MEDS: INSULIN LISPRO 100 UNITS/ML SQ PRN (12:27)
[2024-08-24] MEDS: LOPERAMIDE HCL 2 MG CAPSULE PO PRN (12:27)
[2024-08-24] MEDS: ACETAMINOPHEN 325 MG TABLET PO PRN (12:36)
[2024-08-24 17:56] LABS: GLUCOMETER DEV NAME(LOC) 5N.1D; GLUCOSE,POINT OF CARE 246 MG/DL (70-110)
[2024-08-24] MEDS: NICOTINE 21 MG/24 HOUR PATCH TD SCH (17:56)
[2024-08-24] MEDS: MetFORMIN HCL 500 MG TABLET PO SCH (18:01)
[2024-08-24 18:08] LABS: C.DIFF GDH ANTIGEN, Stool Negative (Negative); C.DIFF TOXINS A&B, Stool Negative (Negative)
[2024-08-24] MEDS: OXYBUTYNIN CHLORIDE 5 MG TABLET PO SCH (20:43)
[2024-08-24] MEDS: HYDROCODONE/ACETAMINOPHEN 5-325 MG TABLET PO PRN (20:43)
[2024-08-24] MEDS: MIDODRINE HCL 5 MG TABLET PO SCH (20:43)
[2024-08-24 20:45] LABS: GLUCOMETER DEV NAME(LOC) 5N.1D; GLUCOSE,POINT OF CARE 233 MG/DL (70-110)
[2024-08-25] VITALS (7 sets, daily range): BP systolic 127–146; BP diastolic 69–82; PULSE 58–98; RESP 18–20; TEMP 97.5–98.1; O2SAT 66–98
[2024-08-25] MEDS: LORazepam 2 MG TABLET PO PRN
[2024-08-25 06:32] LABS: BASOPHILS % (AUTO) 1.4 % (0.0-2.0); EOSINOPHILS % (AUTO) 2.1 % (1.0-6.0); HEMATOCRIT 41.9 % (36-46); LYMPHOCYTES # (AUTO) 2.1 K/uL (1.0-4.8); LYMPHOCYTES % (AUTO) 40.8 % (22.0-44.0); MEAN CORPUSCULAR HEMOGLOBIN 31.7 pg (26.0-34.0); MEAN CORPUSCULAR HGB CONC 33.3 G/dL (31.0-37.0); MEAN CORPUSCULAR VOLUME 95 fL (80-100); MONOCYTES # (AUTO) 0.6 K/uL (0.1-1.0); MONOCYTES % (AUTO) 11.8 % (2.0-9.0); NEUTROPHILS # (AUTO) 2.3 K/uL (1.8-7.7); NEUTROPHILS % (AUTO) 43.9 % (40.0-70.0); PLATELET COUNT (AUTO) 205 K/uL (150-450); RED CELL DISTRIBUTION WIDTH 14.4 % (11.5-14.5); WHITE BLOOD COUNT (AUTO) 5.2 K/uL (4.5-11.0)
[2024-08-25 06:36] LABS: GLUCOMETER DEV NAME(LOC) 5S.2D; GLUCOSE,POINT OF CARE 294 MG/DL (70-110)
[2024-08-25 06:37] LABS: ANION GAP 10 mmol/L (8-16); CARBON DIOXIDE 27 mmol/L (22-29); CHLORIDE 106 mmol/L (98-107); CREATININE 0.57 mg/dL (0.60-1.30); GLOMERULAR FILTR. RATE CALC > 60 mL/min (>60); GLUCOSE,RANDOM 197 mg/dL (70-110); POTASSIUM 4.1 mmol/L (3.5-5.1); SODIUM SERUM 143 mmol/L (136-145); UREA NITROGEN, BLOOD 9 mg/dL (7-18)
[2024-08-25] MEDS: MODAFINIL 100 MG TABLET PO SCH (08:45)
[2024-08-25] MEDS: ROPINIRole HCL 0.25 MG TABLET PO SCH (08:45)
[2024-08-25] MEDS: TRIHEXYPHENIDYL HCL 5 MG TABLET PO SCH (08:45)
[2024-08-25] MEDS: DULoxetine HCL 60 MG CAPSULE PO SCH (08:46)
[2024-08-25] MEDS: OMEGA-3/DHA/EPA/FISH OIL 1,000 MG CAPSULE PO SCH ×2 (08:46→08:47)
[2024-08-25] MEDS: GABAPENTIN 100 MG CAPSULE PO SCH (08:46)
[2024-08-25] MEDS: PROPRANOLOL HCL 10 MG TABLET PO SCH (08:46)
[2024-08-25] MEDS: DIVALPROEX SODIUM 500 MG ER TABLET PO SCH (08:46)
[2024-08-25 11:50] LABS: GLUCOMETER DEV NAME(LOC) 5S.2D; GLUCOSE,POINT OF CARE 297 MG/DL (70-110)
[2024-08-25 11:56] LABS: GLUCOMETER DEV NAME(LOC) 5N.1D; GLUCOSE,POINT OF CARE 224 MG/DL (70-110)
[2024-08-25] MEDS ORDERED: ALBUTEROL SULFATE 2.5 MG/0.5 ML NEB SOLUTION NEB PRN (12:00)
[2024-08-25] MEDS ORDERED: INSULIN LISPRO 100 UNITS/ML SQ PRN (12:00)
[2024-08-25] MEDS ORDERED: DEXTROSE 50%-WATER 25 GM/50 ML SYRINGE IVP PRN (12:00)
[2024-08-25] MEDS: DOXYCYCLINE HYCLATE 100 MG TABLET PO SCH (14:29)
[2024-08-25] MEDS: CefTRIAXone 1 GM/DEXTROSE 50 ML IV SCH (14:29)
[2024-08-25] MEDS: IPRATROPIUM BROMIDE 0.5 MG/2.5 ML NEB SOLUTION NEB SCH (20:25)
[2024-08-25] MEDS: INSULIN GLARGINE,HUM.REC.ANLOG 100 UNITS/ML SQ SCH (21:13)
[2024-08-25] MEDS: DONEPEZIL HCL 10 MG TABLET PO SCH (21:27)
[2024-08-25] MEDS: TraZODone HCL 50 MG TABLET PO SCH (21:28)
[2024-08-25] MEDS: PRAZOSIN HCL 1 MG CAPSULE PO SCH (21:29)
[2024-08-25 21:30] LABS: GLUCOMETER DEV NAME(LOC) 5S.2D; GLUCOSE,POINT OF CARE 252 MG/DL (70-110)
[2024-08-25] MEDS: QUEtiapine FUMARATE 200 MG TABLET PO SCH (21:30)
[2024-08-25 21:40] LABS: GLUCOMETER DEV NAME(LOC) 6S.2; GLUCOSE,POINT OF CARE 226 MG/DL (70-110)
[2024-08-26 05:15] VITALS: BP 111/54; PULSE 74; RESP 18; TEMP 97.6; O2SAT 96
[2024-08-26 06:50] LABS: GLUCOMETER DEV NAME(LOC) 6S.2; GLUCOSE,POINT OF CARE 183 MG/DL (70-110)
[2024-08-26 08:00] VITALS: PULSE 76; PULSE 97; RESP 20; O2SAT 76; O2SAT 94; O2SAT 97
[2024-08-26 08:08] VITALS: BP 118/51; PULSE 65; RESP 18; TEMP 97.9; O2SAT 97
[2024-08-26 10:23] LABS: BASOPHILS % (AUTO) 0.4 % (0.0-2.0); EOSINOPHILS % (AUTO) 1.7 % (1.0-6.0); HEMATOCRIT 41.5 % (36-46); HEMOGLOBIN 13.7 g/dL (12.0-16.0); LYMPHOCYTES # (AUTO) 2.1 K/uL (1.0-4.8); LYMPHOCYTES % (AUTO) 34.1 % (22.0-44.0); MEAN CORPUSCULAR HEMOGLOBIN 31.1 pg (26.0-34.0); MEAN CORPUSCULAR HGB CONC 32.9 G/dL (31.0-37.0); MEAN CORPUSCULAR VOLUME 95 fL (80-100); MONOCYTES # (AUTO) 0.5 K/uL (0.1-1.0); MONOCYTES % (AUTO) 8.4 % (2.0-9.0); NEUTROPHILS # (AUTO) 3.4 K/uL (1.8-7.7); NEUTROPHILS % (AUTO) 55.4 % (40.0-70.0); PLATELET COUNT (AUTO) 191 K/uL (150-450); RED CELL DISTRIBUTION WIDTH 14.9 % (11.5-14.5); WHITE BLOOD COUNT (AUTO) 6.1 K/uL (4.5-11.0)
[2024-08-26 10:31] LABS: ANION GAP 6 mmol/L (8-16); CALCIUM, TOTAL 8.9 mg/dL (8.8-10.5); CARBON DIOXIDE 30 mmol/L (22-29); CHLORIDE 104 mmol/L (98-107); GLOMERULAR FILTR. RATE CALC > 60 mL/min (>60); GLUCOSE,RANDOM 163 mg/dL (70-110); POTASSIUM 4.4 mmol/L (3.5-5.1); SODIUM SERUM 140 mmol/L (136-145); UREA NITROGEN, BLOOD 8 mg/dL (7-18)
[2024-08-26] MEDS: LEVOFLOXACIN 750 MG TABLET PO SCH (11:33)
[2024-08-26] MEDS: ONDANSETRON HCL 4 MG/2 ML VIAL IVP PRN (13:45)
[2024-08-26] MEDS ORDERED: LEVO750T68 PO (13:58)
[2024-08-26 14:00] VITALS: PULSE 68; RESP 20; O2SAT 93
[2024-08-26 15:20] LABS: GLUCOMETER DEV NAME(LOC) 6S.2; GLUCOSE,POINT OF CARE 251 MG/DL (70-110)
[2024-08-26] MEDS: ChlorproMAZINE HCL 100 MG TABLET PO PRN (15:40)
[2024-08-26 16:08] VITALS: BP 146/65; PULSE 73; RESP 18; TEMP 97.6; O2SAT 99
[2024-08-26] MEDS: MethylPREDNISolone SOD SUCC 40 MG/ML VIAL IVP SCH (18:25)
[2024-08-26] MEDS: OLANZapine 5 MG RAPDIS TABLET PO PRN (18:31)
[2024-08-26 19:30] VITALS: BP 126/57; PULSE 75; RESP 18; TEMP 97.5; O2SAT 96
[2024-08-26] MEDS: PB/HYOSCY/ATR/SCOP/LIDO/MAALOX 55 ML BOTTLE PO ONE (21:00)
[2024-08-27] VITALS (8 sets, daily range): BP systolic 114–145; BP diastolic 58–67; PULSE 59–77; RESP 18–22; TEMP 97.5–98; O2SAT 9–100
[2024-08-27 01:42] LABS: GLUCOMETER DEV NAME(LOC) 6S.1D; GLUCOSE,POINT OF CARE 351 MG/DL (70-110)
[2024-08-27 08:45] LABS: BASOPHILS % (AUTO) 0.6 % (0.0-2.0); EOSINOPHILS % (AUTO) 0.1 % (1.0-6.0); HEMATOCRIT 43.2 % (36-46); HEMOGLOBIN 14.2 g/dL (12.0-16.0); LYMPHOCYTES # (AUTO) 1.7 K/uL (1.0-4.8); LYMPHOCYTES % (AUTO) 23.5 % (22.0-44.0); MEAN CORPUSCULAR VOLUME 94 fL (80-100); MONOCYTES # (AUTO) 0.4 K/uL (0.1-1.0); MONOCYTES % (AUTO) 6.1 % (2.0-9.0); NEUTROPHILS % (AUTO) 69.7 % (40.0-70.0); PLATELET COUNT (AUTO) 178 K/uL (150-450); RED BLOOD CELL COUNT(AUTO) 4.59 MIL/uL (4.00-5.20); RED CELL DISTRIBUTION WIDTH 14.4 % (11.5-14.5); WHITE BLOOD COUNT (AUTO) 7.2 K/uL (4.5-11.0)
[2024-08-27 08:50] LABS: ANION GAP 7 mmol/L (8-16); CARBON DIOXIDE 29 mmol/L (22-29); CHLORIDE 100 mmol/L (98-107); CREATININE 0.75 mg/dL (0.60-1.30); GLOMERULAR FILTR. RATE CALC > 60 mL/min (>60); GLUCOSE,RANDOM 243 mg/dL (70-110); POTASSIUM 4.6 mmol/L (3.5-5.1); SODIUM SERUM 136 mmol/L (136-145); UREA NITROGEN, BLOOD 11 mg/dL (7-18)
[2024-08-27 11:41] LABS: GLUCOMETER DEV NAME(LOC) 6N.2B; GLUCOSE,POINT OF CARE 317 MG/DL (70-110)
[2024-08-27 11:41] LABS: GLUCOMETER DEV NAME(LOC) 6N.2B; GLUCOSE,POINT OF CARE 302 MG/DL (70-110)
[2024-08-27 21:30] LABS: GLUCOMETER DEV NAME(LOC) 6S.2; GLUCOSE,POINT OF CARE 285 MG/DL (70-110)
[2024-08-27 21:35] LABS: GLUCOMETER DEV NAME(LOC) 6N.2B; GLUCOSE,POINT OF CARE 289 MG/DL (70-110)
[2024-08-28 02:30] VITALS: BP 120/66; PULSE 55; RESP 18; TEMP 97.4; O2SAT 94
[2024-08-28 06:51] LABS: GLUCOMETER DEV NAME(LOC) 6S.2; GLUCOSE,POINT OF CARE 263 MG/DL (70-110)
[2024-08-28 09:01] VITALS: BP 102/61; PULSE 64; RESP 18; TEMP 98; O2SAT 96
[2024-08-28 11:50] LABS: GLUCOMETER DEV NAME(LOC) 6N.2B; GLUCOSE,POINT OF CARE 229 MG/DL (70-110)
[2024-08-28] MEDS ORDERED: MIDO5TAB29 PO (13:51)
[2024-08-28] MEDS ORDERED: PRED-554 PO (13:52)
[2024-08-28] MEDS ORDERED: OMEG100033 PO (13:54)
[2024-08-28] MEDS ORDERED: NICO-803 TD (13:54)
[2024-08-28] MEDS ORDERED: PANT-31 PO (13:55)
[2024-08-28] MEDS ORDERED: TRIH5TAB4 PO (13:56)
[2024-08-28] MEDS ORDERED: BISA10SU11 PR (13:58)
[2024-08-28] MEDS ORDERED: ACET-2247 PO (13:58)
[2024-08-28] MEDS ORDERED: MAGN-169 PO (13:59)
[2024-08-28] MEDS ORDERED: OLAN5TAB52 PO (14:01)
[2024-08-28] MEDS ORDERED: ZOLP-280 PO (14:01)
[2024-08-28 16:08] VITALS: BP 110/75; PULSE 62; RESP 18; TEMP 98.3; O2SAT 94
== END 2024-08-28 17:16 | DRG 917 ==
LOC: EMS 12:57 → UNDOADMIN 14:13 → B2X 14:13 → EDH 15:19 → 5S 21:16 → 6N 08-25 18:35
PROVIDERS: ADMIT Internal Medicine; ATTEND Internal Medicine
DX: T42.6X2A Poisoning by other antiepileptic and sedative-hypnotic drugs, intentional self-harm, initial encounter (principal); J15.69 Pneumonia due to other Gram-negative bacteria; J96.01 Acute respiratory failure with hypoxia; J44.1 Chronic obstructive pulmonary disease with (acute) exacerbation; J44.0 Chronic obstructive pulmonary disease with (acute) lower respiratory infection; E11.40 Type 2 diabetes mellitus with diabetic neuropathy, unspecified; E78.5 Hyperlipidemia, unspecified; Z20.822 Contact with and (suspected) exposure to COVID-19; F25.0 Schizoaffective disorder, bipolar type; E78.00 Pure hypercholesterolemia, unspecified; E03.9 Hypothyroidism, unspecified; G25.81 Restless legs syndrome; G24.01 Drug induced subacute dyskinesia; D64.9 Anemia, unspecified; E55.9 Vitamin D deficiency, unspecified; K59.00 Constipation, unspecified; F03.90 Unspecified dementia, unspecified severity, without behavioral disturbance, psychotic disturbance, mood disturbance, and anxiety; Z79.4 Long term (current) use of insulin; Z79.84 Long term (current) use of oral hypoglycemic drugs; Z79.899 Other long term (current) drug therapy; Y92.89 Other specified places as the place of occurrence of the external cause; R32 Unspecified urinary incontinence; I95.9 Hypotension, unspecified; T44.6X2A Poisoning by alpha-adrenoreceptor antagonists, intentional self-harm, initial encounter
CPT/HCPCS: 71045; 80048; 80061; 80076; 80164; 80307; 81001; 82962; 83036; 84484; 85025; 87077; 87086; 87186; 87324; 87449; 93005; 94640; 99291; G0480; G0481; J0696; J1644; J1815; J2405; J7030; 36415-L1; 36415-TC

== ENCOUNTER 2024-09-03 11:43 | Inpatient (IN) | payer MEDICARE, MEDICAID, OTHER ==
[~2024-09-03] VITALS: Ht 165.1 cm; Wt 76.7 kg
[~2024-09-03 11:43] MED LIST changes: +ACET-2247 PO; +BISA10SU11 PR; -CHLO25TA70 PO; +CHLO25TA82 PO; -DULO-113 PO; +DULO60CA98 PO; +LEVO750T68 PO; +MAGN-169 PO; -METF-1211 PO; +MIDO5TAB29 PO; +NICO-803 TD; -NITR-75 PO; +OLAN5TAB52 PO; +PANT-31 PO; +PRED-554 PO; -PROP10TA72 PO; +TRIH5TAB4 PO; +ZOLP-280 PO
[2024-09-03 12:37] LABS: PLATELET COUNT (AUTO) 177 K/uL (150-450); RED BLOOD CELL COUNT(AUTO) 4.78 MIL/uL (4.00-5.20); RED CELL DISTRIBUTION WIDTH 14.8 % (11.5-14.5); WHITE BLOOD COUNT (AUTO) 9.9 K/uL (4.5-11.0)
[2024-09-03 12:55] LABS: CALCIUM, TOTAL 9.0 mg/dL (8.8-10.5); CREATININE 0.73 mg/dL (0.60-1.30); GLOMERULAR FILTR. RATE CALC > 60 mL/min (>60); GLUCOSE,RANDOM 242 mg/dL (70-110); SODIUM SERUM 136 mmol/L (136-145); UREA NITROGEN, BLOOD 16 mg/dL (7-18)
[2024-09-03 13:09] LABS: ALCOHOL, BLOOD (SERUM) < 3 mg/dL (0-10)
[2024-09-03] MEDS ORDERED: MAGNESIUM HYDROXIDE SUSPENSION 30 ML UDCUP PO PRN ×2 (13:15→21:15)
[2024-09-03 13:51] LABS: COVID AG,FIA SOURCE NASAL SWAB
[2024-09-03 14:01] LABS: ALCOHOL, URINE DRUG SCREEN NEGATIVE (NEGATIVE); AMPHET/METH SCREEN,URINE NEGATIVE (NEGATIVE); BARBITURATE SCREEN, URINE NEGATIVE (NEGATIVE); CANNABINOID SCREEN,URINE NEGATIVE (NEGATIVE); COCAINE SCREEN,URINE NEGATIVE (NEGATIVE); METHADONE SCREEN, URINE NEGATIVE (NEGATIVE)
[2024-09-03 14:05] LABS: PH,URINE DRUG SCREEN 7.0 (5.0-8.0)
[2024-09-03 14:37] LABS: SARS-COV2 (COVID) ANTIGEN,FIA Negative (Negative)
[2024-09-03] MEDS: ACETAMINOPHEN 325 MG TABLET PO PRN (19:05)
[2024-09-03] MEDS ORDERED: ACETAMINOPHEN 325 MG TABLET PO PRN (21:15)
[2024-09-03] MEDS ORDERED: DEXTROSE 50%-WATER 25 GM/50 ML SYRINGE IVP PRN (21:30)
[2024-09-03] MEDS: THIAMINE 100 MG TABLET PO SCH (22:05)
[2024-09-03] MEDS: DIVALPROEX SODIUM 500 MG ER TABLET PO SCH (22:06)
[2024-09-03] MEDS: INSULIN LISPRO 100 UNITS/ML SQ PRN (22:11)
[2024-09-03 22:26] LABS: GLUCOMETER DEV NAME(LOC) 3EX.2; GLUCOSE,POINT OF CARE 217 MG/DL (70-110)
[2024-09-03] MEDS: PRAZOSIN HCL 1 MG CAPSULE PO SCH (22:33)
[2024-09-03] MEDS: TRIHEXYPHENIDYL HCL 2 MG TABLET PO SCH (22:45)
[2024-09-03 23:10] VITALS: BP 143/82; PULSE 83; RESP 18; TEMP 97.6; O2SAT 100
[2024-09-03 23:49] VITALS: BP 143/82; PULSE 83; RESP 18; TEMP 97.6; O2SAT 100
[2024-09-04 07:01] LABS: GLUCOMETER DEV NAME(LOC) 3EX.2; GLUCOSE,POINT OF CARE 197 MG/DL (70-110)
[2024-09-04] MEDS: BISACODYL 5 MG EC TABLET PO SCH (08:17)
[2024-09-04] MEDS: OMEGA-3/DHA/EPA/FISH OIL 1,000 MG CAPSULE PO SCH (08:17)
[2024-09-04] MEDS: MULTIVITAMINS WITH MINERALS, THERAPEUTIC TABLET PO SCH (08:17)
[2024-09-04] MEDS: DULoxetine HCL 60 MG CAPSULE PO SCH (08:18)
[2024-09-04] MEDS ORDERED: FOLIC ACID 1 MG TABLET PO SCH (09:00)
[2024-09-04] MEDS ORDERED: DONEPEZIL HCL 10 MG TABLET PO SCH (09:00)
[2024-09-04] MEDS ORDERED: MEMANTINE HCL 10 MG TABLET PO SCH (09:00)
[2024-09-04] MEDS ORDERED: OMEGA-3/DHA/EPA/FISH OIL 1,000 MG CAPSULE PO SCH (09:00)
[2024-09-04] MEDS ORDERED: DULoxetine HCL 60 MG CAPSULE PO SCH (09:00)
[2024-09-04] MEDS: FOLIC ACID 1 MG TABLET PO SCH (09:06)
[2024-09-04] MEDS: GABAPENTIN 100 MG CAPSULE PO SCH (09:06)
[2024-09-04] MEDS: MEMANTINE HCL 10 MG TABLET PO SCH (09:07)
[2024-09-04] MEDS: DONEPEZIL HCL 10 MG TABLET PO SCH (09:07)
[2024-09-04] MEDS: PANTOPRAZOLE SODIUM 40 MG DR TABLET PO SCH (09:07)
[2024-09-04] MEDS: NICOTINE 21 MG/24 HOUR PATCH TD SCH (09:07)
[2024-09-04 11:19] VITALS: BP 129/65; PULSE 69; RESP 18; TEMP 97.7; O2SAT 97
[2024-09-04 11:46] LABS: GLUCOMETER DEV NAME(LOC) 3E.I 2; GLUCOSE,POINT OF CARE 306 MG/DL (70-110)
[2024-09-04 13:25] VITALS: BP 128/67; PULSE 74; RESP 18; TEMP 97.7; O2SAT 98
[2024-09-04 17:25] LABS: GLUCOMETER DEV NAME(LOC) 3E.I 2; GLUCOSE,POINT OF CARE 379 MG/DL (70-110)
[2024-09-04 20:21] VITALS: BP 120/71; PULSE 91; RESP 18; TEMP 97.6; O2SAT 97
[2024-09-04 20:41] LABS: GLUCOMETER DEV NAME(LOC) 3E.I 2; GLUCOSE,POINT OF CARE 308 MG/DL (70-110)
[2024-09-04] MEDS ORDERED: PRAZOSIN HCL 1 MG CAPSULE PO SCH (21:00)
[2024-09-04] MEDS: INSULIN GLARGINE,HUM.REC.ANLOG 100 UNITS/ML SQ SCH (21:36)
[2024-09-05 06:06] LABS: GLUCOMETER DEV NAME(LOC) 3E.I 2; GLUCOSE,POINT OF CARE 209 MG/DL (70-110)
[2024-09-05 12:00] LABS: GLUCOMETER DEV NAME(LOC) 3E.I 2; GLUCOSE,POINT OF CARE 205 MG/DL (70-110)
[2024-09-05 16:10] LABS: GLUCOMETER DEV NAME(LOC) 3E.I 2; GLUCOSE,POINT OF CARE 212 MG/DL (70-110)
[2024-09-05 21:11] LABS: GLUCOMETER DEV NAME(LOC) 3E.I 2; GLUCOSE,POINT OF CARE 291 MG/DL (70-110)
[2024-09-05 22:50] VITALS: BP 108/55; PULSE 70; RESP 16; TEMP 97.1; O2SAT 99
[2024-09-06 07:16] LABS: GLUCOMETER DEV NAME(LOC) 3E.I 2; GLUCOSE,POINT OF CARE 158 MG/DL (70-110)
[2024-09-06 11:56] LABS: GLUCOMETER DEV NAME(LOC) 3E.I 2; GLUCOSE,POINT OF CARE 223 MG/DL (70-110)
[2024-09-06] MEDS: ATORVASTATIN CALCIUM 20 MG TABLET PO SCH (13:04)
[2024-09-06 13:11] VITALS: BP 155/70; PULSE 65; RESP 18; TEMP 97.3; O2SAT 100
[2024-09-06 17:05] LABS: GLUCOMETER DEV NAME(LOC) 3E.I 2; GLUCOSE,POINT OF CARE 259 MG/DL (70-110)
[2024-09-06 21:16] LABS: GLUCOMETER DEV NAME(LOC) 3E.I 2; GLUCOSE,POINT OF CARE 178 MG/DL (70-110)
[2024-09-06 21:55] VITALS: BP 121/64; PULSE 71; RESP 17; TEMP 97.9; O2SAT 95
[2024-09-07 06:45] LABS: GLUCOMETER DEV NAME(LOC) 3E.I 2; GLUCOSE,POINT OF CARE 179 MG/DL (70-110)
[2024-09-07 09:32] VITALS: BP 134/79; PULSE 75; RESP 18; TEMP 97.7; O2SAT 96
[2024-09-07 11:51] LABS: GLUCOMETER DEV NAME(LOC) 3E.I 2; GLUCOSE,POINT OF CARE 149 MG/DL (70-110)
[2024-09-07 16:58] VITALS: BP 132/71; PULSE 78; RESP 17; TEMP 98.1
[2024-09-07 17:55] LABS: GLUCOMETER DEV NAME(LOC) 3EX.2; GLUCOSE,POINT OF CARE 273 MG/DL (70-110)
[2024-09-07 17:58] VITALS: BP 136/79; PULSE 76; RESP 17; TEMP 97.9
[2024-09-07 20:59] VITALS: RESP 18
[2024-09-07 21:56] LABS: GLUCOMETER DEV NAME(LOC) 3E.I 2; GLUCOSE,POINT OF CARE 266 MG/DL (70-110)
[2024-09-08 06:26] LABS: GLUCOMETER DEV NAME(LOC) 3E.I 2; GLUCOSE,POINT OF CARE 198 MG/DL (70-110)
[2024-09-08 10:01] VITALS: BP 106/61; PULSE 75; RESP 17; TEMP 97.8; O2SAT 98
[2024-09-08 11:30] LABS: GLUCOMETER DEV NAME(LOC) 3EX.2; GLUCOSE,POINT OF CARE 235 MG/DL (70-110)
[2024-09-08 12:49] VITALS: BP 132/75; PULSE 89; RESP 18; O2SAT 97
[2024-09-08] MEDS: MAG HYDROX/ALUMINUM HYD/SIMETH ES 30 ML SUSPENSION UDCUP PO PRN (15:21)
[2024-09-08 18:16] LABS: GLUCOMETER DEV NAME(LOC) 3EX.2; GLUCOSE,POINT OF CARE 248 MG/DL (70-110)
[2024-09-08 21:27] VITALS: BP 143/84; PULSE 67; RESP 18; TEMP 97.9; O2SAT 96
[2024-09-08 21:51] LABS: GLUCOMETER DEV NAME(LOC) 3E.I 2; GLUCOSE,POINT OF CARE 200 MG/DL (70-110)
[2024-09-09] VITALS (13 sets, daily range): BP systolic 106–128; BP diastolic 61–73; PULSE 68–83; RESP 17–18; TEMP 96.7–98; O2SAT 96–98
[2024-09-09 06:05] LABS: GLUCOMETER DEV NAME(LOC) 3E.I 2; GLUCOSE,POINT OF CARE 273 MG/DL (70-110)
[2024-09-09 12:11] LABS: GLUCOMETER DEV NAME(LOC) 3EX.2; GLUCOSE,POINT OF CARE 248 MG/DL (70-110)
[2024-09-09 17:40] LABS: GLUCOMETER DEV NAME(LOC) 3EX.2; GLUCOSE,POINT OF CARE 168 MG/DL (70-110)
[2024-09-09 19:55] LABS: GLUCOMETER DEV NAME(LOC) 3EX.2; GLUCOSE,POINT OF CARE 137 MG/DL (70-110)
[2024-09-10 06:31] LABS: GLUCOMETER DEV NAME(LOC) 3EX.2; GLUCOSE,POINT OF CARE 159 MG/DL (70-110)
[2024-09-10 11:33] VITALS: BP 99/58; PULSE 84; RESP 18; TEMP 97; O2SAT 98
[2024-09-10 11:35] LABS: GLUCOMETER DEV NAME(LOC) 3EX.2; GLUCOSE,POINT OF CARE 191 MG/DL (70-110)
[2024-09-10 17:51] LABS: GLUCOMETER DEV NAME(LOC) 3EX.2; GLUCOSE,POINT OF CARE 193 MG/DL (70-110)
[2024-09-10] MEDS: MEMANTINE HCL 5 MG TABLET PO SCH (18:36)
[2024-09-10 21:00] LABS: GLUCOMETER DEV NAME(LOC) 3E.I 2; GLUCOSE,POINT OF CARE 207 MG/DL (70-110)
[2024-09-10 21:09] VITALS: BP 130/70; PULSE 68; RESP 18; TEMP 98.2; O2SAT 99
[2024-09-10] MEDS: DONEPEZIL HCL 10 MG TABLET PO SCH (21:32)
[2024-09-10] MEDS: DIVALPROEX SODIUM 500 MG ER TABLET PO SCH (21:33)
[2024-09-11 07:06] LABS: GLUCOMETER DEV NAME(LOC) 3E.I 2; GLUCOSE,POINT OF CARE 149 MG/DL (70-110)
[2024-09-11 09:00] VITALS: BP 104/53; PULSE 68; RESP 17; TEMP 97.4; O2SAT 96
[2024-09-11] MEDS: DIVALPROEX SODIUM 500 MG ER TABLET PO SCH (09:44)
[2024-09-11 12:01] LABS: GLUCOMETER DEV NAME(LOC) 3E.I 2; GLUCOSE,POINT OF CARE 257 MG/DL (70-110)
[2024-09-11 16:10] LABS: GLUCOMETER DEV NAME(LOC) 3E.I 2; GLUCOSE,POINT OF CARE 162 MG/DL (70-110)
[2024-09-11 20:44] VITALS: BP 136/91; PULSE 72; RESP 20; TEMP 98; O2SAT 97
[2024-09-11 22:07] VITALS: BP 136/91; PULSE 72; RESP 20; TEMP 98; O2SAT 97
[2024-09-12 06:36] LABS: GLUCOMETER DEV NAME(LOC) 3E.I 2; GLUCOSE,POINT OF CARE 173 MG/DL (70-110)
[2024-09-12 08:47] LABS: CHOL/HDL RATIO 2.8 (3.9-5.7); LDL CHOL (CALC.) 54.0 mg/dL (0-130)
[2024-09-12 09:11] VITALS: BP 108/61; PULSE 77; RESP 17; TEMP 97.7; O2SAT 96
[2024-09-12 09:17] VITALS: BP 108/60; PULSE 77; RESP 18; TEMP 97.8; O2SAT 96
[2024-09-12 11:36] LABS: GLUCOMETER DEV NAME(LOC) 3E.I 2; GLUCOSE,POINT OF CARE 145 MG/DL (70-110)
[2024-09-12 17:20] LABS: GLUCOMETER DEV NAME(LOC) 3E.I 2; GLUCOSE,POINT OF CARE 220 MG/DL (70-110)
[2024-09-12 20:00] VITALS: BP 130/70; PULSE 68; RESP 18; TEMP 98.2; O2SAT 99
[2024-09-12 22:40] LABS: GLUCOMETER DEV NAME(LOC) 3E.I 2; GLUCOSE,POINT OF CARE 171 MG/DL (70-110)
[2024-09-13 06:21] LABS: GLUCOMETER DEV NAME(LOC) 3E.I 2; GLUCOSE,POINT OF CARE 180 MG/DL (70-110)
[2024-09-13 10:03] VITALS: BP 129/60; PULSE 98; RESP 18; TEMP 97.9; O2SAT 98
[2024-09-13 11:45] LABS: GLUCOMETER DEV NAME(LOC) 3E.I 2; GLUCOSE,POINT OF CARE 181 MG/DL (70-110)
[2024-09-13 12:05] LABS: CANDIDA AURIS PCR,SURVEILLANCE Not Detected C(t) (Not Detectd)
[2024-09-13 17:40] LABS: GLUCOMETER DEV NAME(LOC) 3E.I 2; GLUCOSE,POINT OF CARE 224 MG/DL (70-110)
[2024-09-13 20:06] LABS: GLUCOMETER DEV NAME(LOC) 3E.I 2; GLUCOSE,POINT OF CARE 190 MG/DL (70-110)
[2024-09-13 22:00] VITALS: BP 149/74; PULSE 58; RESP 18; TEMP 97.6; O2SAT 98
[2024-09-14 05:56] LABS: GLUCOMETER DEV NAME(LOC) 3E.I 2; GLUCOSE,POINT OF CARE 164 MG/DL (70-110)
[2024-09-14 12:43] VITALS: BP 126/70; PULSE 80; RESP 17; TEMP 97.1; O2SAT 96
[2024-09-14 17:51] LABS: GLUCOMETER DEV NAME(LOC) 3EX.2; GLUCOSE,POINT OF CARE 139 MG/DL (70-110)
[2024-09-14 20:31] LABS: GLUCOMETER DEV NAME(LOC) 3E.I 2; GLUCOSE,POINT OF CARE 177 MG/DL (70-110)
[2024-09-14 23:21] VITALS: BP 144/99; PULSE 69; RESP 18; TEMP 97.2; O2SAT 98
[2024-09-15 06:25] LABS: GLUCOMETER DEV NAME(LOC) 3E.I 2; GLUCOSE,POINT OF CARE 165 MG/DL (70-110)
[2024-09-15 10:22] VITALS: BP 141/75; PULSE 63; RESP 17; TEMP 97.5; O2SAT 98
[2024-09-15 11:50] LABS: GLUCOMETER DEV NAME(LOC) 3EX.2; GLUCOSE,POINT OF CARE 171 MG/DL (70-110)
[2024-09-15 17:36] LABS: GLUCOMETER DEV NAME(LOC) 3E.I 2; GLUCOSE,POINT OF CARE 185 MG/DL (70-110)
[2024-09-15 20:46] LABS: GLUCOMETER DEV NAME(LOC) 3E.I 2; GLUCOSE,POINT OF CARE 177 MG/DL (70-110)
[2024-09-15 23:50] VITALS: BP 112/66; PULSE 60; RESP 18; TEMP 97.9; O2SAT 96
[2024-09-16 06:01] LABS: GLUCOMETER DEV NAME(LOC) 3EX.2; GLUCOSE,POINT OF CARE 132 MG/DL (70-110)
[2024-09-16 08:00] VITALS: BP 139/68; PULSE 65; RESP 18; TEMP 96.6; O2SAT 98
[2024-09-16 11:10] LABS: GLUCOMETER DEV NAME(LOC) 3EX.2; GLUCOSE,POINT OF CARE 204 MG/DL (70-110)
[2024-09-16 17:36] LABS: GLUCOMETER DEV NAME(LOC) 3EX.2; GLUCOSE,POINT OF CARE 175 MG/DL (70-110)
[2024-09-16 20:21] LABS: GLUCOMETER DEV NAME(LOC) 3E.I 2; GLUCOSE,POINT OF CARE 165 MG/DL (70-110)
[2024-09-16 21:54] VITALS: BP 133/71; PULSE 77; RESP 18; TEMP 96.6; O2SAT 97
[2024-09-17 06:35] LABS: GLUCOMETER DEV NAME(LOC) 3E.I 2; GLUCOSE,POINT OF CARE 130 MG/DL (70-110)
[2024-09-17 09:00] VITALS: BP 141/77; PULSE 84; RESP 16; TEMP 98; O2SAT 96
[2024-09-17 11:31] LABS: GLUCOMETER DEV NAME(LOC) 3E.I 2; GLUCOSE,POINT OF CARE 187 MG/DL (70-110)
[2024-09-17 13:31] LABS: GLUCOMETER DEV NAME(LOC) 3EX.2; GLUCOSE,POINT OF CARE 214 MG/DL (70-110)
[2024-09-17 16:31] LABS: GLUCOMETER DEV NAME(LOC) 3E.I 2; GLUCOSE,POINT OF CARE 163 MG/DL (70-110)
[2024-09-17 20:50] LABS: GLUCOMETER DEV NAME(LOC) 3E.I 2; GLUCOSE,POINT OF CARE 181 MG/DL (70-110)
[2024-09-17 21:07] VITALS: BP 126/65; PULSE 64; RESP 18; TEMP 97.9; O2SAT 99
[2024-09-18 06:35] LABS: GLUCOMETER DEV NAME(LOC) 3E.I 2; GLUCOSE,POINT OF CARE 154 MG/DL (70-110)
[2024-09-18 09:00] VITALS: BP 134/79; PULSE 74; RESP 17; TEMP 97.4; O2SAT 96
[2024-09-18 12:31] LABS: GLUCOMETER DEV NAME(LOC) 3E.I 2; GLUCOSE,POINT OF CARE 141 MG/DL (70-110)
[2024-09-18 16:51] LABS: GLUCOMETER DEV NAME(LOC) 3E.I 2; GLUCOSE,POINT OF CARE 250 MG/DL (70-110)
[2024-09-18] MEDS: PROPRANOLOL HCL 10 MG TABLET PO SCH (17:13)
[2024-09-18 20:51] LABS: GLUCOMETER DEV NAME(LOC) 3E.I 2; GLUCOSE,POINT OF CARE 175 MG/DL (70-110)
[2024-09-18 21:00] VITALS: BP 130/71; PULSE 64; RESP 18; TEMP 96.9; O2SAT 97
[2024-09-19 06:05] LABS: GLUCOMETER DEV NAME(LOC) 3E.I 2; GLUCOSE,POINT OF CARE 149 MG/DL (70-110)
[2024-09-19 10:56] VITALS: RESP 18
[2024-09-19 11:46] LABS: GLUCOMETER DEV NAME(LOC) 3EX.2; GLUCOSE,POINT OF CARE 133 MG/DL (70-110)
[2024-09-19 16:41] LABS: GLUCOMETER DEV NAME(LOC) 3EX.2; GLUCOSE,POINT OF CARE 223 MG/DL (70-110)
[2024-09-19 20:42] VITALS: BP 131/61; PULSE 62; RESP 17; TEMP 97.1; O2SAT 96
[2024-09-19 20:46] LABS: GLUCOMETER DEV NAME(LOC) 3E.I 2; GLUCOSE,POINT OF CARE 153 MG/DL (70-110)
[2024-09-20 06:41] LABS: GLUCOMETER DEV NAME(LOC) 3EX.2; GLUCOSE,POINT OF CARE 138 MG/DL (70-110)
[2024-09-20 08:30] VITALS: BP 118/67; PULSE 62; RESP 18; TEMP 96.8; O2SAT 98
[2024-09-20 12:56] LABS: GLUCOMETER DEV NAME(LOC) 3EX.2; GLUCOSE,POINT OF CARE 246 MG/DL (70-110)
[2024-09-20 16:50] LABS: GLUCOMETER DEV NAME(LOC) 3EX.2; GLUCOSE,POINT OF CARE 191 MG/DL (70-110)
[2024-09-20 20:26] LABS: GLUCOMETER DEV NAME(LOC) 3E.I 2; GLUCOSE,POINT OF CARE 203 MG/DL (70-110)
[2024-09-20 21:27] VITALS: BP 133/63; PULSE 71; RESP 18; TEMP 96.6; O2SAT 96
[2024-09-21 06:25] LABS: GLUCOMETER DEV NAME(LOC) 3E.I 2; GLUCOSE,POINT OF CARE 180 MG/DL (70-110)
[2024-09-21 11:33] VITALS: BP 130/68; PULSE 61; RESP 18; TEMP 98.1; O2SAT 97
[2024-09-21 11:56] LABS: GLUCOMETER DEV NAME(LOC) 3EX.2; GLUCOSE,POINT OF CARE 176 MG/DL (70-110)
[2024-09-21 16:50] LABS: GLUCOMETER DEV NAME(LOC) 3E.I 2; GLUCOSE,POINT OF CARE 176 MG/DL (70-110)
[2024-09-21 20:16] LABS: GLUCOMETER DEV NAME(LOC) 3E.I 2; GLUCOSE,POINT OF CARE 167 MG/DL (70-110)
[2024-09-21 20:18] VITALS: BP 132/72; PULSE 53; RESP 20; TEMP 96.7; O2SAT 98
[2024-09-22 06:25] LABS: GLUCOMETER DEV NAME(LOC) 3E.I 2; GLUCOSE,POINT OF CARE 163 MG/DL (70-110)
[2024-09-22 08:00] VITALS: BP 145/77; PULSE 60; RESP 16; TEMP 97.1; O2SAT 99
[2024-09-22 11:11] LABS: GLUCOMETER DEV NAME(LOC) 3E.I 2; GLUCOSE,POINT OF CARE 192 MG/DL (70-110)
[2024-09-22 16:55] LABS: GLUCOMETER DEV NAME(LOC) 3E.I 2; GLUCOSE,POINT OF CARE 241 MG/DL (70-110)
[2024-09-22 21:05] VITALS: BP 127/76; PULSE 63; RESP 18; TEMP 96.2; O2SAT 96
[2024-09-23 02:01] LABS: GLUCOMETER DEV NAME(LOC) 3E.I 2; GLUCOSE,POINT OF CARE 152 MG/DL (70-110)
[2024-09-23 06:30] LABS: GLUCOMETER DEV NAME(LOC) 3E.I 2; GLUCOSE,POINT OF CARE 170 MG/DL (70-110)
[2024-09-23 11:00] VITALS: BP 140/74; PULSE 62; RESP 18; TEMP 97.4; O2SAT 95
[2024-09-23 12:16] LABS: GLUCOMETER DEV NAME(LOC) 3EX.2; GLUCOSE,POINT OF CARE 207 MG/DL (70-110)
[2024-09-23 17:55] LABS: GLUCOMETER DEV NAME(LOC) 3EX.2; GLUCOSE,POINT OF CARE 175 MG/DL (70-110)
[2024-09-23 20:46] LABS: GLUCOMETER DEV NAME(LOC) 3EX.2; GLUCOSE,POINT OF CARE 136 MG/DL (70-110)
[2024-09-23 23:07] VITALS: BP 146/90; PULSE 64; RESP 18; TEMP 97.3; O2SAT 96
[2024-09-24 07:11] LABS: GLUCOMETER DEV NAME(LOC) 3EX.2; GLUCOSE,POINT OF CARE 153 MG/DL (70-110)
[2024-09-24 09:00] VITALS: BP 123/77; PULSE 60; RESP 18; TEMP 97.6; O2SAT 97
[2024-09-24 11:25] LABS: GLUCOMETER DEV NAME(LOC) 3E.I 2; GLUCOSE,POINT OF CARE 215 MG/DL (70-110)
[2024-09-24 17:35] LABS: GLUCOMETER DEV NAME(LOC) 3E.I 2; GLUCOSE,POINT OF CARE 217 MG/DL (70-110)
[2024-09-24 20:47] VITALS: BP 129/59; PULSE 85; RESP 18; TEMP 97.6; O2SAT 98
[2024-09-24 21:21] LABS: GLUCOMETER DEV NAME(LOC) 3E.I 2; GLUCOSE,POINT OF CARE 179 MG/DL (70-110)
[2024-09-25 06:56] LABS: GLUCOMETER DEV NAME(LOC) 3E.I 2; GLUCOSE,POINT OF CARE 177 MG/DL (70-110)
[2024-09-25 11:38] VITALS: BP 140/66; PULSE 60; RESP 18; TEMP 98.6; O2SAT 96
[2024-09-25 12:26] LABS: GLUCOMETER DEV NAME(LOC) 3EX.2; GLUCOSE,POINT OF CARE 231 MG/DL (70-110)
[2024-09-25 17:01] LABS: GLUCOMETER DEV NAME(LOC) 3EX.2; GLUCOSE,POINT OF CARE 121 MG/DL (70-110)
[2024-09-25 21:09] VITALS: BP 108/51; PULSE 62; RESP 18; TEMP 97.3; O2SAT 96
[2024-09-25 21:10] LABS: GLUCOMETER DEV NAME(LOC) 3E.I 2; GLUCOSE,POINT OF CARE 187 MG/DL (70-110)
[2024-09-26 05:55] LABS: GLUCOMETER DEV NAME(LOC) 3EX.2; GLUCOSE,POINT OF CARE 122 MG/DL (70-110)
[2024-09-26 08:29] VITALS: BP 128/63; PULSE 59; RESP 18; TEMP 97.5; O2SAT 95
[2024-09-26 12:20] LABS: GLUCOMETER DEV NAME(LOC) 3E.I 2; GLUCOSE,POINT OF CARE 215 MG/DL (70-110)
[2024-09-26 16:50] LABS: GLUCOMETER DEV NAME(LOC) 3EX.2; GLUCOSE,POINT OF CARE 201 MG/DL (70-110)
[2024-09-26 21:26] LABS: GLUCOMETER DEV NAME(LOC) 3E.I 2; GLUCOSE,POINT OF CARE 164 MG/DL (70-110)
[2024-09-26 22:55] VITALS: BP 136/99; PULSE 73; RESP 18; TEMP 97.6; O2SAT 98
[2024-09-26] MEDS: ZOLPIDEM TARTRATE 10 MG TABLET PO PRN (23:42)
[2024-09-27 06:05] LABS: GLUCOMETER DEV NAME(LOC) 3E.I 2; GLUCOSE,POINT OF CARE 150 MG/DL (70-110)
[2024-09-27 08:00] VITALS: BP 110/68; PULSE 61; RESP 17; TEMP 97.2; O2SAT 96
[2024-09-27 11:31] LABS: GLUCOMETER DEV NAME(LOC) 3E.I 2; GLUCOSE,POINT OF CARE 177 MG/DL (70-110)
[2024-09-27 18:41] LABS: GLUCOMETER DEV NAME(LOC) 3E.I 2; GLUCOSE,POINT OF CARE 243 MG/DL (70-110)
[2024-09-27 20:10] LABS: GLUCOMETER DEV NAME(LOC) 3EX.2; GLUCOSE,POINT OF CARE 132 MG/DL (70-110)
[2024-09-27 20:56] VITALS: BP 145/79; PULSE 72; RESP 20; TEMP 97.9; O2SAT 95
[2024-09-28 08:00] VITALS: BP 119/68; PULSE 77; RESP 18; TEMP 97.5; O2SAT 97
[2024-09-28 12:31] LABS: GLUCOMETER DEV NAME(LOC) 3E.I 2; GLUCOSE,POINT OF CARE 166 MG/DL (70-110)
[2024-09-28 16:55] LABS: GLUCOMETER DEV NAME(LOC) 3E.I 2; GLUCOSE,POINT OF CARE 113 MG/DL (70-110)
[2024-09-28] MEDS: DIVALPROEX SODIUM 500 MG ER TABLET PO SCH (21:24)
[2024-09-28 21:25] LABS: GLUCOMETER DEV NAME(LOC) 3EX.2; GLUCOSE,POINT OF CARE 121 MG/DL (70-110)
[2024-09-28 21:45] LABS: GLUCOMETER DEV NAME(LOC) 3E.C; GLUCOSE,POINT OF CARE 257 MG/DL (70-110)
[2024-09-28 23:41] VITALS: BP 144/81; PULSE 73; RESP 18; TEMP 97.2; O2SAT 99
[2024-09-29 06:26] LABS: GLUCOMETER DEV NAME(LOC) 3EX.2; GLUCOSE,POINT OF CARE 106 MG/DL (70-110)
[2024-09-29 09:22] VITALS: BP 140/86; RESP 18; TEMP 97.6; O2SAT 99
[2024-09-29 11:40] LABS: GLUCOMETER DEV NAME(LOC) 3EX.2; GLUCOSE,POINT OF CARE 118 MG/DL (70-110)
[2024-09-29 16:50] VITALS: BP 136/78; PULSE 78; RESP 18; TEMP 97.8; O2SAT 97
[2024-09-29 18:21] LABS: GLUCOMETER DEV NAME(LOC) 3EX.2; GLUCOSE,POINT OF CARE 176 MG/DL (70-110)
[2024-09-29 20:55] LABS: GLUCOMETER DEV NAME(LOC) 3E.I 2; GLUCOSE,POINT OF CARE 197 MG/DL (70-110)
[2024-09-29 22:00] VITALS: BP 123/75; PULSE 68; RESP 18; TEMP 98.2; O2SAT 97
[2024-09-30 01:39] VITALS: BP 134/73; PULSE 30; RESP 18; TEMP 98.5; O2SAT 97
[2024-09-30] MEDS: GABAPENTIN 100 MG CAPSULE PO SCH (06:48)
[2024-09-30 11:50] LABS: GLUCOMETER DEV NAME(LOC) 3EX.2; GLUCOSE,POINT OF CARE 229 MG/DL (70-110)
[2024-09-30 12:45] VITALS: BP 146/79; PULSE 69; RESP 18; TEMP 97.6; O2SAT 98
[2024-09-30 17:30] LABS: GLUCOMETER DEV NAME(LOC) 3EX.2; GLUCOSE,POINT OF CARE 113 MG/DL (70-110)
[2024-09-30 20:20] LABS: GLUCOMETER DEV NAME(LOC) 3E.I 2; GLUCOSE,POINT OF CARE 185 MG/DL (70-110)
[2024-09-30 21:36] VITALS: BP 113/68; PULSE 64; RESP 19; TEMP 98.1; O2SAT 99
[2024-10-01 05:55] LABS: GLUCOMETER DEV NAME(LOC) 3E.I 2; GLUCOSE,POINT OF CARE 100 MG/DL (70-110)
[2024-10-01 12:24] VITALS: BP 132/78; PULSE 72; RESP 18; TEMP 98; O2SAT 98
[2024-10-01 17:21] LABS: GLUCOMETER DEV NAME(LOC) 3EX.2; GLUCOSE,POINT OF CARE 135 MG/DL (70-110)
[2024-10-01 17:41] LABS: GLUCOMETER DEV NAME(LOC) 3EX.2; GLUCOSE,POINT OF CARE 156 MG/DL (70-110)
[2024-10-01 20:21] LABS: GLUCOMETER DEV NAME(LOC) 3E.I 2; GLUCOSE,POINT OF CARE 180 MG/DL (70-110)
[2024-10-01 20:40] VITALS: BP 119/99; PULSE 62; RESP 16; TEMP 97.2; O2SAT 96
[2024-10-02 06:15] LABS: GLUCOMETER DEV NAME(LOC) 3E.I 2; GLUCOSE,POINT OF CARE 123 MG/DL (70-110)
[2024-10-02 09:15] VITALS: BP 123/64; PULSE 63; RESP 16; TEMP 96.9; O2SAT 96
[2024-10-02 11:41] LABS: GLUCOMETER DEV NAME(LOC) 3E.I 2; GLUCOSE,POINT OF CARE 147 MG/DL (70-110)
[2024-10-02 16:35] LABS: GLUCOMETER DEV NAME(LOC) 3E.I 2; GLUCOSE,POINT OF CARE 149 MG/DL (70-110)
[2024-10-02 20:31] LABS: GLUCOMETER DEV NAME(LOC) 3E.I 2; GLUCOSE,POINT OF CARE 133 MG/DL (70-110)
[2024-10-02 21:07] VITALS: BP 141/83; PULSE 66; RESP 18; TEMP 97.5; O2SAT 97
[2024-10-03 06:31] LABS: GLUCOMETER DEV NAME(LOC) 3E.I 2; GLUCOSE,POINT OF CARE 79 MG/DL (70-110)
[2024-10-03 09:17] VITALS: BP 137/64; PULSE 66; RESP 18; TEMP 97.5; O2SAT 97
[2024-10-03 11:41] LABS: GLUCOMETER DEV NAME(LOC) 3E.I 2; GLUCOSE,POINT OF CARE 187 MG/DL (70-110)
[2024-10-03 17:36] LABS: GLUCOMETER DEV NAME(LOC) 3E.I 2; GLUCOSE,POINT OF CARE 321 MG/DL (70-110)
[2024-10-03 20:56] LABS: GLUCOMETER DEV NAME(LOC) 3E.I 2; GLUCOSE,POINT OF CARE 104 MG/DL (70-110)
[2024-10-03 22:10] VITALS: BP 134/76; PULSE 90; RESP 18; TEMP 97.2; O2SAT 96
[2024-10-04 06:15] LABS: GLUCOMETER DEV NAME(LOC) 3E.I 2; GLUCOSE,POINT OF CARE 107 MG/DL (70-110)
[2024-10-04 10:33] VITALS: BP 117/72; PULSE 88; RESP 18; TEMP 97.7; O2SAT 100
[2024-10-04 11:55] LABS: GLUCOMETER DEV NAME(LOC) 3E.I 2; GLUCOSE,POINT OF CARE 168 MG/DL (70-110)
[2024-10-04 17:30] LABS: GLUCOMETER DEV NAME(LOC) 3E.I 2; GLUCOSE,POINT OF CARE 148 MG/DL (70-110)
[2024-10-04 21:50] LABS: GLUCOMETER DEV NAME(LOC) 3E.I 2; GLUCOSE,POINT OF CARE 182 MG/DL (70-110)
[2024-10-04 23:42] VITALS: BP 138/61; PULSE 66; RESP 18; TEMP 97.9; O2SAT 96
[2024-10-05 06:10] LABS: GLUCOMETER DEV NAME(LOC) 3E.I 2; GLUCOSE,POINT OF CARE 91 MG/DL (70-110)
[2024-10-05 10:02] VITALS: BP 115/94; PULSE 62; RESP 17; TEMP 97.5; O2SAT 98
[2024-10-05 11:31] LABS: GLUCOMETER DEV NAME(LOC) 3E.I 2; GLUCOSE,POINT OF CARE 167 MG/DL (70-110)
[2024-10-05 17:15] LABS: GLUCOMETER DEV NAME(LOC) 3E.I 2; GLUCOSE,POINT OF CARE 177 MG/DL (70-110)
[2024-10-05] MEDS: GuaiFENesin/D-METHORPHAN [SUGAR-FREE] 200-20MG/10 ML SYRUP UDCUP PO PRN (17:59)
[2024-10-05 21:46] LABS: GLUCOMETER DEV NAME(LOC) 3E.I 2; GLUCOSE,POINT OF CARE 152 MG/DL (70-110)
[2024-10-05 23:02] VITALS: BP 111/78; PULSE 60; RESP 17; TEMP 97.1; O2SAT 95
[2024-10-06 06:26] LABS: GLUCOMETER DEV NAME(LOC) 3E.I 2; GLUCOSE,POINT OF CARE 116 MG/DL (70-110)
[2024-10-06 08:00] VITALS: BP 134/75; PULSE 67; RESP 17; TEMP 98; O2SAT 97
[2024-10-06 11:40] LABS: GLUCOMETER DEV NAME(LOC) 3EX.2; GLUCOSE,POINT OF CARE 242 MG/DL (70-110)
[2024-10-06 12:20] VITALS: BP 118/72; PULSE 65; RESP 17; TEMP 97.8; O2SAT 98
[2024-10-06 17:05] VITALS: BP 124/68; PULSE 74; RESP 17; TEMP 97.6; O2SAT 96
[2024-10-06 17:16] LABS: GLUCOMETER DEV NAME(LOC) 3EX.2; GLUCOSE,POINT OF CARE 221 MG/DL (70-110)
[2024-10-06 20:36] LABS: GLUCOMETER DEV NAME(LOC) 3E.I 2; GLUCOSE,POINT OF CARE 148 MG/DL (70-110)
[2024-10-06 23:00] VITALS: BP 140/90; PULSE 66; RESP 16; TEMP 98.2; O2SAT 97
[2024-10-07 08:06] VITALS: BP 133/68; PULSE 91; RESP 16; TEMP 97.9; O2SAT 98
[2024-10-07 12:06] LABS: GLUCOMETER DEV NAME(LOC) 3EX.2; GLUCOSE,POINT OF CARE 210 MG/DL (70-110)
[2024-10-07 17:01] LABS: GLUCOMETER DEV NAME(LOC) 3EX.2; GLUCOSE,POINT OF CARE 177 MG/DL (70-110)
[2024-10-07 20:36] LABS: GLUCOMETER DEV NAME(LOC) 3E.I 2; GLUCOSE,POINT OF CARE 139 MG/DL (70-110)
[2024-10-07 20:41] LABS: GLUCOMETER DEV NAME(LOC) 3E.I 2; GLUCOSE,POINT OF CARE 135 MG/DL (70-110)
[2024-10-07 20:51] VITALS: BP 113/65; PULSE 72; RESP 18; TEMP 97.8; O2SAT 97
[2024-10-08 07:00] LABS: GLUCOMETER DEV NAME(LOC) 3E.I 2; GLUCOSE,POINT OF CARE 129 MG/DL (70-110)
[2024-10-08 10:59] VITALS: BP 138/56; PULSE 78; RESP 18; TEMP 98; O2SAT 98
[2024-10-08 16:40] LABS: GLUCOMETER DEV NAME(LOC) 3EX.2; GLUCOSE,POINT OF CARE 193 MG/DL (70-110)
[2024-10-08 18:56] LABS: COVID AG,FIA SOURCE NASAL SWAB
[2024-10-08 19:22] LABS: SARS-COV2 (COVID) ANTIGEN,FIA Negative (Negative)
[2024-10-08 21:09] VITALS: BP 123/93; PULSE 74; RESP 16; TEMP 97.5; O2SAT 96
[2024-10-08 21:11] LABS: GLUCOMETER DEV NAME(LOC) 3E.I 2; GLUCOSE,POINT OF CARE 163 MG/DL (70-110)
[2024-10-09] MEDS: BENZOCAINE/MENTHOL [CEPACOL] LOZENGE PO PRN (04:51)
[2024-10-09 06:25] LABS: GLUCOMETER DEV NAME(LOC) 3E.I 2; GLUCOSE,POINT OF CARE 197 MG/DL (70-110)
[2024-10-09 11:16] LABS: GLUCOMETER DEV NAME(LOC) 3EX.2; GLUCOSE,POINT OF CARE 137 MG/DL (70-110)
[2024-10-09 11:39] VITALS: BP 104/77; PULSE 78; RESP 19; TEMP 98.8
[2024-10-09 11:55] LABS: GLUCOMETER DEV NAME(LOC) 3EX.2; GLUCOSE,POINT OF CARE 145 MG/DL (70-110)
[2024-10-09] MEDS: PERMETHRIN 1% 60 ML LOTION TP ONE (15:45)
[2024-10-09 17:51] LABS: GLUCOMETER DEV NAME(LOC) 3EX.2; GLUCOSE,POINT OF CARE 207 MG/DL (70-110)
[2024-10-09 20:05] LABS: GLUCOMETER DEV NAME(LOC) 3E.I 2; GLUCOSE,POINT OF CARE 189 MG/DL (70-110)
[2024-10-09 20:37] VITALS: BP 112/60; PULSE 60; RESP 18; TEMP 97.6
[2024-10-10 06:21] LABS: GLUCOMETER DEV NAME(LOC) 3E.I 2; GLUCOSE,POINT OF CARE 114 MG/DL (70-110)
[2024-10-10 08:15] VITALS: BP 128/51; PULSE 68; RESP 20; TEMP 97.5; O2SAT 100
[2024-10-10 12:20] LABS: GLUCOMETER DEV NAME(LOC) 3E.I 2; GLUCOSE,POINT OF CARE 157 MG/DL (70-110)
[2024-10-10 17:00] VITALS: BP 125/70; PULSE 78; RESP 18
[2024-10-10 18:21] LABS: GLUCOMETER DEV NAME(LOC) 3E.I 2; GLUCOSE,POINT OF CARE 142 MG/DL (70-110)
[2024-10-10 20:06] LABS: GLUCOMETER DEV NAME(LOC) 3E.I 2; GLUCOSE,POINT OF CARE 173 MG/DL (70-110)
[2024-10-10 21:41] VITALS: BP 115/46; PULSE 74; RESP 18; TEMP 98.3
[2024-10-11 06:01] LABS: GLUCOMETER DEV NAME(LOC) 3E.I 2; GLUCOSE,POINT OF CARE 99 MG/DL (70-110)
[2024-10-11 10:34] VITALS: BP 146/72; PULSE 75; RESP 17; TEMP 97.5; O2SAT 96
[2024-10-11 11:50] LABS: GLUCOMETER DEV NAME(LOC) 3EX.2; GLUCOSE,POINT OF CARE 145 MG/DL (70-110)
[2024-10-11 17:05] LABS: GLUCOMETER DEV NAME(LOC) 3E.I 2; GLUCOSE,POINT OF CARE 184 MG/DL (70-110)
[2024-10-11 20:01] LABS: GLUCOMETER DEV NAME(LOC) 3E.I 2; GLUCOSE,POINT OF CARE 163 MG/DL (70-110)
[2024-10-11 21:09] VITALS: BP 129/99; PULSE 78; RESP 18; TEMP 98.7; O2SAT 97
[2024-10-12 05:36] LABS: GLUCOMETER DEV NAME(LOC) 3E.I 2; GLUCOSE,POINT OF CARE 114 MG/DL (70-110)
[2024-10-12 08:00] VITALS: BP 128/68; PULSE 71; RESP 18; TEMP 97.8; O2SAT 96
[2024-10-12 12:10] LABS: GLUCOMETER DEV NAME(LOC) 3E.I 2; GLUCOSE,POINT OF CARE 199 MG/DL (70-110)
[2024-10-12 16:34] VITALS: BP 132/70; PULSE 78; RESP 18
[2024-10-12 18:15] LABS: GLUCOMETER DEV NAME(LOC) 3E.I 2; GLUCOSE,POINT OF CARE 175 MG/DL (70-110)
[2024-10-12 21:06] LABS: GLUCOMETER DEV NAME(LOC) 3E.I 2; GLUCOSE,POINT OF CARE 134 MG/DL (70-110)
[2024-10-12 21:09] VITALS: BP 141/74; PULSE 64; RESP 18; TEMP 96.9; O2SAT 95
[2024-10-12 21:47] VITALS: BP 141/74; PULSE 64; RESP 18; TEMP 96.9; O2SAT 95
[2024-10-13 06:10] LABS: GLUCOMETER DEV NAME(LOC) 3E.I 2; GLUCOSE,POINT OF CARE 177 MG/DL (70-110)
[2024-10-13 11:34] VITALS: BP 119/76; PULSE 78; RESP 16; TEMP 97.8; O2SAT 99
[2024-10-13 11:51] LABS: GLUCOMETER DEV NAME(LOC) 3E.I 2; GLUCOSE,POINT OF CARE 196 MG/DL (70-110)
[2024-10-13 17:30] LABS: GLUCOMETER DEV NAME(LOC) 3E.I 2; GLUCOSE,POINT OF CARE 196 MG/DL (70-110)
[2024-10-13 20:11] LABS: GLUCOMETER DEV NAME(LOC) 3E.I 2; GLUCOSE,POINT OF CARE 183 MG/DL (70-110)
[2024-10-13 23:11] VITALS: BP 132/64; PULSE 74; RESP 18; TEMP 97.8; O2SAT 97
[2024-10-14 11:26] LABS: GLUCOMETER DEV NAME(LOC) 3EX.2; GLUCOSE,POINT OF CARE 184 MG/DL (70-110)
[2024-10-14 16:11] VITALS: BP 137/104; PULSE 85; RESP 18; TEMP 99; O2SAT 96
[2024-10-14 19:10] LABS: GLUCOMETER DEV NAME(LOC) 3E.I 2; GLUCOSE,POINT OF CARE 165 MG/DL (70-110)
[2024-10-14 20:21] LABS: GLUCOMETER DEV NAME(LOC) 3E.I 2; GLUCOSE,POINT OF CARE 168 MG/DL (70-110)
[2024-10-14 21:30] VITALS: BP 127/78; PULSE 62; RESP 18; O2SAT 97
[2024-10-15 05:46] LABS: GLUCOMETER DEV NAME(LOC) 3E.I 2; GLUCOSE,POINT OF CARE 107 MG/DL (70-110)
[2024-10-15 11:00] LABS: GLUCOMETER DEV NAME(LOC) 3E.I 2; GLUCOSE,POINT OF CARE 134 MG/DL (70-110)
[2024-10-15 11:19] VITALS: BP 105/60; PULSE 66; RESP 18; TEMP 97.7; O2SAT 96
[2024-10-15 11:50] LABS: GLUCOMETER DEV NAME(LOC) 3EX.2; GLUCOSE,POINT OF CARE 175 MG/DL (70-110)
[2024-10-15 17:25] LABS: GLUCOMETER DEV NAME(LOC) 3EX.2; GLUCOSE,POINT OF CARE 191 MG/DL (70-110)
[2024-10-15 21:08] VITALS: BP 131/67; PULSE 65; RESP 18; TEMP 97; O2SAT 97
[2024-10-16 03:15] LABS: GLUCOMETER DEV NAME(LOC) 3E.I 2; GLUCOSE,POINT OF CARE 147 MG/DL (70-110)
[2024-10-16 07:00] LABS: GLUCOMETER DEV NAME(LOC) 3E.I 2; GLUCOSE,POINT OF CARE 105 MG/DL (70-110)
[2024-10-16 08:30] VITALS: BP 139/65; PULSE 76; RESP 18; TEMP 97.3; O2SAT 98
[2024-10-16 12:25] LABS: GLUCOMETER DEV NAME(LOC) 3EX.2; GLUCOSE,POINT OF CARE 164 MG/DL (70-110)
[2024-10-16 17:05] LABS: GLUCOMETER DEV NAME(LOC) 3EX.2; GLUCOSE,POINT OF CARE 168 MG/DL (70-110)
[2024-10-16 21:01] LABS: GLUCOMETER DEV NAME(LOC) 3E.I 2; GLUCOSE,POINT OF CARE 171 MG/DL (70-110)
[2024-10-16 21:41] VITALS: BP 115/88; PULSE 63; RESP 17; TEMP 97.4; O2SAT 96
[2024-10-17 05:50] LABS: GLUCOMETER DEV NAME(LOC) 3E.I 2; GLUCOSE,POINT OF CARE 130 MG/DL (70-110)
[2024-10-17 09:14] VITALS: BP 104/55; PULSE 66; RESP 17; TEMP 97.4; O2SAT 96
[2024-10-17 11:45] LABS: GLUCOMETER DEV NAME(LOC) 3E.I 2; GLUCOSE,POINT OF CARE 187 MG/DL (70-110)
[2024-10-17 16:46] VITALS: BP 116/61; PULSE 73; RESP 18; O2SAT 97
[2024-10-17 17:31] LABS: GLUCOMETER DEV NAME(LOC) 3E.I 2; GLUCOSE,POINT OF CARE 254 MG/DL (70-110)
[2024-10-17 21:04] VITALS: BP 112/74; PULSE 71; RESP 18; TEMP 96; O2SAT 100
[2024-10-17 22:51] LABS: GLUCOMETER DEV NAME(LOC) 3E.I 2; GLUCOSE,POINT OF CARE 106 MG/DL (70-110)
[2024-10-18 06:35] LABS: GLUCOMETER DEV NAME(LOC) 3E.I 2; GLUCOSE,POINT OF CARE 124 MG/DL (70-110)
[2024-10-18 11:07] VITALS: BP 125/72; PULSE 76; RESP 18; TEMP 98.3; O2SAT 98
[2024-10-18 11:35] LABS: GLUCOMETER DEV NAME(LOC) 3E.I 2; GLUCOSE,POINT OF CARE 198 MG/DL (70-110)
[2024-10-18 16:31] VITALS: BP 146/69; PULSE 89; RESP 18; O2SAT 97
[2024-10-18 17:05] LABS: GLUCOMETER DEV NAME(LOC) 3E.I 2; GLUCOSE,POINT OF CARE 227 MG/DL (70-110)
[2024-10-18 20:06] LABS: GLUCOMETER DEV NAME(LOC) 3E.I 2; GLUCOSE,POINT OF CARE 126 MG/DL (70-110)
[2024-10-18 20:30] VITALS: BP 120/99; PULSE 70; RESP 18; TEMP 97.7; O2SAT 97
[2024-10-19 06:35] LABS: GLUCOMETER DEV NAME(LOC) 3E.I 2; GLUCOSE,POINT OF CARE 137 MG/DL (70-110)
[2024-10-19 09:33] VITALS: BP 144/81; PULSE 78; RESP 17; TEMP 97.3; O2SAT 99
[2024-10-19 11:36] LABS: GLUCOMETER DEV NAME(LOC) 3E.I 2; GLUCOSE,POINT OF CARE 169 MG/DL (70-110)
[2024-10-19 13:30] VITALS: BP 113/65; PULSE 82; RESP 18; O2SAT 97
[2024-10-19 16:49] VITALS: BP 125/72; PULSE 89; RESP 18; O2SAT 97
[2024-10-19 18:46] LABS: GLUCOMETER DEV NAME(LOC) 3E.I 2; GLUCOSE,POINT OF CARE 185 MG/DL (70-110)
[2024-10-19 20:21] LABS: GLUCOMETER DEV NAME(LOC) 3E.I 2; GLUCOSE,POINT OF CARE 250 MG/DL (70-110)
[2024-10-20 01:12] VITALS: PULSE 80; TEMP 98.5; O2SAT 98
[2024-10-20 05:46] LABS: GLUCOMETER DEV NAME(LOC) 3E.I 2; GLUCOSE,POINT OF CARE 131 MG/DL (70-110)
[2024-10-20 08:43] VITALS: BP 119/62; PULSE 72; RESP 18; TEMP 96.5; O2SAT 98
[2024-10-20 11:26] LABS: GLUCOMETER DEV NAME(LOC) 3E.I 2; GLUCOSE,POINT OF CARE 170 MG/DL (70-110)
[2024-10-20 12:36] VITALS: BP 108/65; PULSE 89; RESP 18; O2SAT 98
[2024-10-20 16:30] LABS: GLUCOMETER DEV NAME(LOC) 3E.I 2; GLUCOSE,POINT OF CARE 273 MG/DL (70-110)
[2024-10-20 20:16] LABS: GLUCOMETER DEV NAME(LOC) 3E.I 2; GLUCOSE,POINT OF CARE 250 MG/DL (70-110)
[2024-10-20 20:50] VITALS: BP 133/121; PULSE 61; RESP 18; TEMP 97.9; O2SAT 99
[2024-10-20] MEDS: LOPERAMIDE HCL 2 MG CAPSULE PO PRN (21:20)
[2024-10-21 06:06] LABS: GLUCOMETER DEV NAME(LOC) 3E.I 2; GLUCOSE,POINT OF CARE 133 MG/DL (70-110)
[2024-10-21 06:37] VITALS: BP 144/77; PULSE 75; RESP 18; O2SAT 97
[2024-10-21 09:43] VITALS: BP 101/63; PULSE 74; RESP 18; TEMP 97.5; O2SAT 99
[2024-10-21 11:46] LABS: GLUCOMETER DEV NAME(LOC) 3EX.2; GLUCOSE,POINT OF CARE 164 MG/DL (70-110)
[2024-10-21 13:40] VITALS: BP 98/62; PULSE 78; RESP 18
[2024-10-21 17:15] LABS: GLUCOMETER DEV NAME(LOC) 3EX.2; GLUCOSE,POINT OF CARE 254 MG/DL (70-110)
[2024-10-21 18:13] VITALS: BP 128/90; PULSE 83; RESP 18; O2SAT 95
[2024-10-21 21:24] VITALS: BP 123/96; PULSE 88; RESP 18; TEMP 96.6; O2SAT 96
[2024-10-21 22:11] LABS: GLUCOMETER DEV NAME(LOC) 3E.I 2; GLUCOSE,POINT OF CARE 166 MG/DL (70-110)
[2024-10-22 07:00] LABS: GLUCOMETER DEV NAME(LOC) 3E.I 2; GLUCOSE,POINT OF CARE 142 MG/DL (70-110)
[2024-10-22 10:40] VITALS: BP 101/67; PULSE 84; RESP 18; TEMP 97.5; O2SAT 97
[2024-10-22 12:00] LABS: GLUCOMETER DEV NAME(LOC) 3EX.2; GLUCOSE,POINT OF CARE 158 MG/DL (70-110)
[2024-10-22 16:55] LABS: GLUCOMETER DEV NAME(LOC) 3EX.2; GLUCOSE,POINT OF CARE 111 MG/DL (70-110)
[2024-10-22 21:14] VITALS: RESP 18
[2024-10-22 23:16] LABS: GLUCOMETER DEV NAME(LOC) 3E.I 2; GLUCOSE,POINT OF CARE 215 MG/DL (70-110)
[2024-10-23 07:00] LABS: GLUCOMETER DEV NAME(LOC) 3E.I 2; GLUCOSE,POINT OF CARE 167 MG/DL (70-110)
[2024-10-23] MEDS: BENZTROPINE MESYLATE 2 MG TABLET PO SCH (09:47)
[2024-10-23 10:50] VITALS: BP 115/59; PULSE 65; RESP 18; TEMP 97.9; O2SAT 98
[2024-10-23 11:46] LABS: GLUCOMETER DEV NAME(LOC) 3EX.2; GLUCOSE,POINT OF CARE 223 MG/DL (70-110)
[2024-10-23] MEDS: ONDANSETRON 4 MG TABLET PO PRN (13:00)
[2024-10-23 13:07] VITALS: BP 110/77; PULSE 75; RESP 18
[2024-10-23 16:35] VITALS: BP 135/91; PULSE 78; RESP 18; O2SAT 98
[2024-10-23] MEDS: PROMETHAZINE HCL 25 MG TABLET PO PRN (17:58)
[2024-10-23 18:05] LABS: GLUCOMETER DEV NAME(LOC) 3EX.2; GLUCOSE,POINT OF CARE 241 MG/DL (70-110)
[2024-10-23 21:05] LABS: GLUCOMETER DEV NAME(LOC) 3E.I 2; GLUCOSE,POINT OF CARE 248 MG/DL (70-110)
[2024-10-23 21:41] VITALS: BP 132/84; PULSE 81; RESP 18; TEMP 98.8; O2SAT 97
[2024-10-24 06:30] LABS: GLUCOMETER DEV NAME(LOC) 3E.I 2; GLUCOSE,POINT OF CARE 135 MG/DL (70-110)
[2024-10-24 12:16] LABS: GLUCOMETER DEV NAME(LOC) 3E.I 2; GLUCOSE,POINT OF CARE 141 MG/DL (70-110)
[2024-10-24 16:46] LABS: GLUCOMETER DEV NAME(LOC) 3E.I 2; GLUCOSE,POINT OF CARE 218 MG/DL (70-110)
[2024-10-24 20:28] VITALS: BP 105/86; PULSE 67; RESP 18; TEMP 98.2; O2SAT 97
[2024-10-24 20:36] LABS: GLUCOMETER DEV NAME(LOC) 3EX.2; GLUCOSE,POINT OF CARE 196 MG/DL (70-110)
[2024-10-25 06:46] LABS: GLUCOMETER DEV NAME(LOC) 3E.I 2; GLUCOSE,POINT OF CARE 128 MG/DL (70-110)
[2024-10-25 10:54] VITALS: BP 120/61; PULSE 66; RESP 18; TEMP 97.9; O2SAT 97
[2024-10-25 11:45] LABS: GLUCOMETER DEV NAME(LOC) 3E.I 2; GLUCOSE,POINT OF CARE 141 MG/DL (70-110)
[2024-10-25 17:01] LABS: GLUCOMETER DEV NAME(LOC) 3E.I 2; GLUCOSE,POINT OF CARE 217 MG/DL (70-110)
[2024-10-25 20:31] LABS: GLUCOMETER DEV NAME(LOC) 3EX.2; GLUCOSE,POINT OF CARE 255 MG/DL (70-110)
[2024-10-25 22:15] VITALS: BP 135/82; PULSE 68; RESP 20; TEMP 97.8; O2SAT 97
[2024-10-26 05:46] LABS: GLUCOMETER DEV NAME(LOC) 3E.I 2; GLUCOSE,POINT OF CARE 139 MG/DL (70-110)
[2024-10-26 09:09] VITALS: BP 92/61; PULSE 60; RESP 18; O2SAT 96
[2024-10-26 11:41] LABS: GLUCOMETER DEV NAME(LOC) 3E.I 2; GLUCOSE,POINT OF CARE 135 MG/DL (70-110)
[2024-10-26 13:39] VITALS: BP 116/51; PULSE 61
[2024-10-26 17:45] LABS: GLUCOMETER DEV NAME(LOC) 3E.I 2; GLUCOSE,POINT OF CARE 183 MG/DL (70-110)
[2024-10-26] MEDS: PERMETHRIN 1% 60 ML LOTION TP ONE (18:01)
[2024-10-26 22:16] LABS: GLUCOMETER DEV NAME(LOC) 3E.I 2; GLUCOSE,POINT OF CARE 251 MG/DL (70-110)
[2024-10-26 22:38] VITALS: BP 130/79; PULSE 77; RESP 18; TEMP 97.2; O2SAT 95
[2024-10-27 08:35] VITALS: BP 123/71; PULSE 62; RESP 17; TEMP 97.7; O2SAT 97
[2024-10-27 12:25] LABS: GLUCOMETER DEV NAME(LOC) 3E.I 2; GLUCOSE,POINT OF CARE 189 MG/DL (70-110)
[2024-10-27 12:30] LABS: GLUCOMETER DEV NAME(LOC) 3E.I 2; GLUCOSE,POINT OF CARE 182 MG/DL (70-110)
[2024-10-27 17:15] LABS: GLUCOMETER DEV NAME(LOC) 3E.I 2; GLUCOSE,POINT OF CARE 219 MG/DL (70-110)
[2024-10-27 20:45] VITALS: BP 115/96; PULSE 73; RESP 18; TEMP 98.2; O2SAT 96
[2024-10-27 21:20] LABS: GLUCOMETER DEV NAME(LOC) 3E.I 2; GLUCOSE,POINT OF CARE 278 MG/DL (70-110)
[2024-10-28 06:21] LABS: GLUCOMETER DEV NAME(LOC) 3E.I 2; GLUCOSE,POINT OF CARE 176 MG/DL (70-110)
[2024-10-28 08:00] VITALS: BP 106/61; PULSE 59; RESP 18; TEMP 97.4; O2SAT 96
[2024-10-28 11:50] LABS: GLUCOMETER DEV NAME(LOC) 3E.I 2; GLUCOSE,POINT OF CARE 204 MG/DL (70-110)
[2024-10-28 12:59] VITALS: BP 111/51; PULSE 64
[2024-10-28 17:10] LABS: GLUCOMETER DEV NAME(LOC) 3E.I 2; GLUCOSE,POINT OF CARE 126 MG/DL (70-110)
[2024-10-28 17:55] VITALS: BP 113/66
[2024-10-28 20:25] LABS: GLUCOMETER DEV NAME(LOC) 3E.I 2; GLUCOSE,POINT OF CARE 252 MG/DL (70-110)
[2024-10-28 21:16] VITALS: BP 99/66; PULSE 98; RESP 18; O2SAT 95
[2024-10-29 06:00] LABS: GLUCOMETER DEV NAME(LOC) 3E.I 2; GLUCOSE,POINT OF CARE 166 MG/DL (70-110)
[2024-10-29 09:00] VITALS: BP 107/51; PULSE 86
[2024-10-29 12:00] LABS: GLUCOMETER DEV NAME(LOC) 3E.I 2; GLUCOSE,POINT OF CARE 164 MG/DL (70-110)
[2024-10-29 15:24] VITALS: BP 99/52
[2024-10-29 16:51] LABS: GLUCOMETER DEV NAME(LOC) 3E.I 2; GLUCOSE,POINT OF CARE 185 MG/DL (70-110)
[2024-10-29 17:00] VITALS: BP 113/65; PULSE 84
[2024-10-29 21:05] LABS: GLUCOMETER DEV NAME(LOC) 3EX.2; GLUCOSE,POINT OF CARE 124 MG/DL (70-110)
[2024-10-29 21:05] LABS: GLUCOMETER DEV NAME(LOC) 3EX.2; GLUCOSE,POINT OF CARE 236 MG/DL (70-110)
[2024-10-29 22:40] VITALS: BP 90/57; PULSE 80; RESP 18; TEMP 98.1
[2024-10-30 06:40] LABS: GLUCOMETER DEV NAME(LOC) 3EX.2; GLUCOSE,POINT OF CARE 223 MG/DL (70-110)
[2024-10-30 08:30] VITALS: BP 83/48; PULSE 62; RESP 16; TEMP 96.3; O2SAT 95
[2024-10-30 08:49] VITALS: BP 115/65; PULSE 62; RESP 17; TEMP 97; O2SAT 97
[2024-10-30 11:51] LABS: GLUCOMETER DEV NAME(LOC) 3EX.2; GLUCOSE,POINT OF CARE 162 MG/DL (70-110)
[2024-10-30 16:50] LABS: GLUCOMETER DEV NAME(LOC) 3EX.2; GLUCOSE,POINT OF CARE 260 MG/DL (70-110)
[2024-10-30 19:16] VITALS: BP 110/73; PULSE 72; RESP 18; TEMP 97; O2SAT 98
[2024-10-30 20:15] VITALS: BP 98/55; PULSE 57; RESP 18; TEMP 97.5
[2024-10-30 20:20] LABS: GLUCOMETER DEV NAME(LOC) 3EX.2; GLUCOSE,POINT OF CARE 253 MG/DL (70-110)
[2024-10-31 01:02] VITALS: BP 103/58; PULSE 60; RESP 18; TEMP 97.7
[2024-10-31 05:51] LABS: GLUCOMETER DEV NAME(LOC) 3EX.2; GLUCOSE,POINT OF CARE 270 MG/DL (70-110)
[2024-10-31 09:21] VITALS: BP 113/79; PULSE 82; RESP 18; TEMP 96.6; O2SAT 98
[2024-10-31 11:56] LABS: GLUCOMETER DEV NAME(LOC) 3EX.2; GLUCOSE,POINT OF CARE 341 MG/DL (70-110)
[2024-10-31 13:11] VITALS: BP 133/76; PULSE 96
[2024-10-31 16:36] LABS: GLUCOMETER DEV NAME(LOC) 3EX.2; GLUCOSE,POINT OF CARE 247 MG/DL (70-110)
[2024-10-31 16:59] VITALS: BP 124/67; PULSE 73
[2024-10-31 20:25] LABS: GLUCOMETER DEV NAME(LOC) 3EX.2; GLUCOSE,POINT OF CARE 265 MG/DL (70-110)
[2024-10-31 20:37] VITALS: PULSE 68; RESP 18; TEMP 97.2; O2SAT 99
[2024-10-31 21:01] LABS: GLUCOMETER DEV NAME(LOC) 3E.I 2; GLUCOSE,POINT OF CARE 260 MG/DL (70-110)
[2024-11-01 06:21] LABS: GLUCOMETER DEV NAME(LOC) 3EX.2; GLUCOSE,POINT OF CARE 258 MG/DL (70-110)
[2024-11-01 09:03] VITALS: BP 113/64; PULSE 63; RESP 17; TEMP 97.1
[2024-11-01 12:00] LABS: GLUCOMETER DEV NAME(LOC) 3EX.2; GLUCOSE,POINT OF CARE 243 MG/DL (70-110)
[2024-11-01 16:36] LABS: GLUCOMETER DEV NAME(LOC) 3EX.2; GLUCOSE,POINT OF CARE 267 MG/DL (70-110)
[2024-11-01 20:26] LABS: GLUCOMETER DEV NAME(LOC) 3EX.2; GLUCOSE,POINT OF CARE 275 MG/DL (70-110)
[2024-11-01 21:52] VITALS: BP 118/68; PULSE 60; RESP 18; TEMP 97.6; O2SAT 97
[2024-11-02 06:41] LABS: GLUCOMETER DEV NAME(LOC) 3EX.2; GLUCOSE,POINT OF CARE 272 MG/DL (70-110)
[2024-11-02 10:24] VITALS: BP 97/53; PULSE 67; RESP 18; O2SAT 97
[2024-11-02 11:26] LABS: GLUCOMETER DEV NAME(LOC) 3EX.2; GLUCOSE,POINT OF CARE 214 MG/DL (70-110)
[2024-11-02 17:15] LABS: GLUCOMETER DEV NAME(LOC) 3E.I 2; GLUCOSE,POINT OF CARE 282 MG/DL (70-110)
[2024-11-02 20:35] LABS: GLUCOMETER DEV NAME(LOC) 3EX.2; GLUCOSE,POINT OF CARE 366 MG/DL (70-110)
[2024-11-02 21:00] VITALS: BP 105/69; PULSE 64; RESP 19; TEMP 97.6; O2SAT 95
[2024-11-03 06:15] LABS: GLUCOMETER DEV NAME(LOC) 3EX.2; GLUCOSE,POINT OF CARE 187 MG/DL (70-110)
[2024-11-03 09:15] VITALS: BP 105/62; PULSE 61; RESP 16; TEMP 97.5; O2SAT 99
[2024-11-03 12:15] LABS: GLUCOMETER DEV NAME(LOC) 3EX.2; GLUCOSE,POINT OF CARE 192 MG/DL (70-110)
[2024-11-03 16:16] LABS: GLUCOMETER DEV NAME(LOC) 3EX.2; GLUCOSE,POINT OF CARE 296 MG/DL (70-110)
[2024-11-03 20:20] LABS: GLUCOMETER DEV NAME(LOC) 3EX.2; GLUCOSE,POINT OF CARE 356 MG/DL (70-110)
[2024-11-04 01:52] VITALS: BP 117/92; PULSE 60; RESP 18; TEMP 98; O2SAT 100
[2024-11-04 06:35] LABS: GLUCOMETER DEV NAME(LOC) 3EX.2; GLUCOSE,POINT OF CARE 228 MG/DL (70-110)
[2024-11-04 09:09] VITALS: BP 101/63; PULSE 74; RESP 18; TEMP 97.8; O2SAT 98
[2024-11-04 12:05] LABS: GLUCOMETER DEV NAME(LOC) 3EX.2; GLUCOSE,POINT OF CARE 200 MG/DL (70-110)
[2024-11-04 14:12] VITALS: BP 111/64; PULSE 61
[2024-11-04 15:54] LABS: APPEARANCE,URINE CLEAR (CLEAR); GLUCOSE, URINE (UA) 70-100 mg/dL (NEGATIVE); LEUKOCYTE ESTERASE ,URINE NEGATIVE (NEGATIVE); NITRATE,URINE NEGATIVE (NEGATIVE); OCCULT BLOOD,URINE NEGATIVE (NEGATIVE); SPECIFIC GRAVITIY, URINE 1.015 (1.003-1.030)
[2024-11-04 16:11] LABS: SQUAMOUS EPITHELIAL CELL,UR Moderate /LPF (None Seen)
[2024-11-04 16:22] VITALS: BP 128/67; PULSE 73
[2024-11-04 16:25] LABS: GLUCOMETER DEV NAME(LOC) 3EX.2; GLUCOSE,POINT OF CARE 276 MG/DL (70-110)
[2024-11-04 22:10] LABS: GLUCOMETER DEV NAME(LOC) 3EX.2; GLUCOSE,POINT OF CARE 397 MG/DL (70-110)
[2024-11-04 23:25] VITALS: BP 130/73; PULSE 79; RESP 18; TEMP 96.5
[2024-11-05 06:06] LABS: GLUCOMETER DEV NAME(LOC) 3E.I 2; GLUCOSE,POINT OF CARE 271 MG/DL (70-110)
[2024-11-05 09:05] VITALS: BP 98/54; PULSE 63; RESP 18; TEMP 98.3; O2SAT 97
[2024-11-05 11:55] LABS: GLUCOMETER DEV NAME(LOC) 3EX.2; GLUCOSE,POINT OF CARE 159 MG/DL (70-110)
[2024-11-05 16:26] LABS: GLUCOMETER DEV NAME(LOC) 3EX.2; GLUCOSE,POINT OF CARE 273 MG/DL (70-110)
[2024-11-05 16:30] VITALS: BP 119/79
[2024-11-05 20:21] LABS: GLUCOMETER DEV NAME(LOC) 3EX.2; GLUCOSE,POINT OF CARE 342 MG/DL (70-110)
[2024-11-05 22:49] VITALS: BP 98/60; PULSE 67; RESP 17; TEMP 98.1; O2SAT 96
[2024-11-06 06:31] LABS: GLUCOMETER DEV NAME(LOC) 3EX.2; GLUCOSE,POINT OF CARE 271 MG/DL (70-110)
[2024-11-06 09:09] VITALS: BP 105/69; PULSE 83; RESP 18; TEMP 97.9; O2SAT 96
[2024-11-06 12:05] LABS: GLUCOMETER DEV NAME(LOC) 3EX.2; GLUCOSE,POINT OF CARE 279 MG/DL (70-110)
[2024-11-06 14:52] VITALS: BP 100/59; PULSE 64
[2024-11-06 16:50] VITALS: BP 119/63; PULSE 65
[2024-11-06 17:10] LABS: GLUCOMETER DEV NAME(LOC) 3E.I 2; GLUCOSE,POINT OF CARE 345 MG/DL (70-110)
[2024-11-06 20:46] LABS: GLUCOMETER DEV NAME(LOC) 3EX.2; GLUCOSE,POINT OF CARE 416 MG/DL (70-110)
[2024-11-06 21:35] VITALS: BP 103/66; PULSE 78; RESP 18; TEMP 97.5; O2SAT 97
[2024-11-07 05:36] LABS: GLUCOMETER DEV NAME(LOC) 3EX.2; GLUCOSE,POINT OF CARE 304 MG/DL (70-110)
[2024-11-07 12:05] LABS: GLUCOMETER DEV NAME(LOC) 3EX.2; GLUCOSE,POINT OF CARE 218 MG/DL (70-110)
[2024-11-07 16:20] LABS: GLUCOMETER DEV NAME(LOC) 3EX.2; GLUCOSE,POINT OF CARE 314 MG/DL (70-110)
[2024-11-07 20:20] LABS: GLUCOMETER DEV NAME(LOC) 3EX.2; GLUCOSE,POINT OF CARE 411 MG/DL (70-110)
[2024-11-07] MEDS: INSULIN LISPRO 100 UNITS/ML SQ ONE (21:45)
[2024-11-07] MEDS: INSULIN GLARGINE,HUM.REC.ANLOG 100 UNITS/ML SQ SCH (21:46)
[2024-11-07 22:48] VITALS: BP 102/50; PULSE 71; RESP 18; TEMP 97.6; O2SAT 98
[2024-11-08 05:55] LABS: GLUCOMETER DEV NAME(LOC) 3EX.2; GLUCOSE,POINT OF CARE 313 MG/DL (70-110)
[2024-11-08] MEDS: DULoxetine HCL 20 MG CAPSULE PO SCH (08:51)
[2024-11-08 10:53] VITALS: BP 110/66; PULSE 65; RESP 16; TEMP 97.5; O2SAT 96
[2024-11-08 12:16] LABS: GLUCOMETER DEV NAME(LOC) 3E.I 2; GLUCOSE,POINT OF CARE 231 MG/DL (70-110)
[2024-11-08 16:30] LABS: GLUCOMETER DEV NAME(LOC) 3E.I 2; GLUCOSE,POINT OF CARE 340 MG/DL (70-110)
[2024-11-08 21:10] LABS: GLUCOMETER DEV NAME(LOC) 3E.I 2; GLUCOSE,POINT OF CARE 433 MG/DL (70-110)
[2024-11-08 21:39] VITALS: BP 109/68; PULSE 79; RESP 18; TEMP 97; O2SAT 98
[2024-11-08] MEDS: INSULIN GLARGINE,HUM.REC.ANLOG 100 UNITS/ML SQ SCH (22:01)
[2024-11-09 06:01] LABS: GLUCOMETER DEV NAME(LOC) 3E.I 2; GLUCOSE,POINT OF CARE 313 MG/DL (70-110)
[2024-11-09 11:36] LABS: GLUCOMETER DEV NAME(LOC) 3EX.2; GLUCOSE,POINT OF CARE 214 MG/DL (70-110)
[2024-11-09 13:58] VITALS: BP 110/68; PULSE 74; RESP 18; O2SAT 96
[2024-11-09 17:05] LABS: GLUCOMETER DEV NAME(LOC) 3EX.2; GLUCOSE,POINT OF CARE 375 MG/DL (70-110)
[2024-11-09 20:25] LABS: GLUCOMETER DEV NAME(LOC) 3EX.2; GLUCOSE,POINT OF CARE 417 MG/DL (70-110)
[2024-11-09 21:37] VITALS: BP 137/83; PULSE 80; RESP 18; O2SAT 98
[2024-11-09 22:30] VITALS: BP 137/83; PULSE 80; RESP 18; TEMP 97.9; O2SAT 98
[2024-11-10 06:25] LABS: GLUCOMETER DEV NAME(LOC) 3E.I 2; GLUCOSE,POINT OF CARE 275 MG/DL (70-110)
[2024-11-10 08:10] VITALS: BP 118/78; PULSE 72; RESP 18; TEMP 98.7; O2SAT 98
[2024-11-10 11:46] LABS: GLUCOMETER DEV NAME(LOC) 3EX.2; GLUCOSE,POINT OF CARE 269 MG/DL (70-110)
[2024-11-10 21:05] LABS: GLUCOMETER DEV NAME(LOC) 3E.I 2; GLUCOSE,POINT OF CARE 358 MG/DL (70-110)
[2024-11-10] MEDS: INSULIN GLARGINE,HUM.REC.ANLOG 100 UNITS/ML SQ SCH (21:50)
[2024-11-10 22:43] VITALS: BP 121/88; PULSE 69; RESP 17; TEMP 97.5; O2SAT 98
[2024-11-11 06:31] LABS: GLUCOMETER DEV NAME(LOC) 3E.I 2; GLUCOSE,POINT OF CARE 179 MG/DL (70-110)
[2024-11-11 12:15] LABS: GLUCOMETER DEV NAME(LOC) 3E.I 2; GLUCOSE,POINT OF CARE 215 MG/DL (70-110)
[2024-11-11 15:12] VITALS: BP 98/53; PULSE 68; RESP 16; TEMP 97.8
[2024-11-11 18:06] LABS: GLUCOMETER DEV NAME(LOC) 3E.I 2; GLUCOSE,POINT OF CARE 234 MG/DL (70-110)
[2024-11-11 20:41] LABS: GLUCOMETER DEV NAME(LOC) 3E.I 2; GLUCOSE,POINT OF CARE 315 MG/DL (70-110)
[2024-11-11 21:21] VITALS: BP 90/74; PULSE 68; RESP 18; TEMP 98.7; O2SAT 97
[2024-11-12 00:43] VITALS: BP 95/62; PULSE 70; RESP 18; TEMP 98; O2SAT 98
[2024-11-12 01:43] VITALS: RESP 18
[2024-11-12 07:06] LABS: GLUCOMETER DEV NAME(LOC) 3E.I 2; GLUCOSE,POINT OF CARE 186 MG/DL (70-110)
[2024-11-12 11:21] LABS: GLUCOMETER DEV NAME(LOC) 3E.I 2; GLUCOSE,POINT OF CARE 210 MG/DL (70-110)
[2024-11-12 12:49] VITALS: RESP 18; TEMP 97.7
[2024-11-12 17:51] LABS: GLUCOMETER DEV NAME(LOC) 3E.I 2; GLUCOSE,POINT OF CARE 341 MG/DL (70-110)
[2024-11-12 20:15] LABS: GLUCOMETER DEV NAME(LOC) 3E.I 2; GLUCOSE,POINT OF CARE 300 MG/DL (70-110)
[2024-11-12 20:53] VITALS: BP 130/73; PULSE 69; RESP 18; TEMP 96.9; O2SAT 95
[2024-11-13 06:11] LABS: GLUCOMETER DEV NAME(LOC) 3E.I 2; GLUCOSE,POINT OF CARE 244 MG/DL (70-110)
[2024-11-13 08:55] VITALS: BP 126/65; PULSE 80; RESP 17; TEMP 98; O2SAT 96
[2024-11-13 10:41] LABS: GLUCOMETER DEV NAME(LOC) 3EX.2; GLUCOSE,POINT OF CARE 260 MG/DL (70-110)
[2024-11-13 11:35] LABS: GLUCOMETER DEV NAME(LOC) 3EX.2; GLUCOSE,POINT OF CARE 224 MG/DL (70-110)
[2024-11-13 16:41] LABS: GLUCOMETER DEV NAME(LOC) 3EX.2; GLUCOSE,POINT OF CARE 330 MG/DL (70-110)
[2024-11-13 20:45] VITALS: BP_SYST 125; BP_SYST 91; BP_DIAS 48; BP_DIAS 75; PULSE 79; RESP 18; TEMP 97.6; O2SAT 98
[2024-11-13 21:50] LABS: GLUCOMETER DEV NAME(LOC) 3EX.2; GLUCOSE,POINT OF CARE 302 MG/DL (70-110)
[2024-11-14 06:01] LABS: GLUCOMETER DEV NAME(LOC) 3EX.2; GLUCOSE,POINT OF CARE 202 MG/DL (70-110)
[2024-11-14 12:40] LABS: GLUCOMETER DEV NAME(LOC) 3EX.2; GLUCOSE,POINT OF CARE 187 MG/DL (70-110)
[2024-11-14 20:06] LABS: GLUCOMETER DEV NAME(LOC) 3EX.2; GLUCOSE,POINT OF CARE 200 MG/DL (70-110)
[2024-11-14 23:13] VITALS: BP 100/88; PULSE 77; RESP 18; TEMP 97.7; O2SAT 97
[2024-11-14 23:30] VITALS: BP 100/78; PULSE 78; RESP 18; TEMP 97.5; O2SAT 98
[2024-11-15 06:06] LABS: GLUCOMETER DEV NAME(LOC) 3EX.2; GLUCOSE,POINT OF CARE 177 MG/DL (70-110)
[2024-11-15 09:10] VITALS: BP 135/64; PULSE 83; RESP 16; TEMP 97.9; O2SAT 95
[2024-11-15 12:05] LABS: GLUCOMETER DEV NAME(LOC) 3EX.2; GLUCOSE,POINT OF CARE 133 MG/DL (70-110)
[2024-11-15 16:36] LABS: GLUCOMETER DEV NAME(LOC) 3EX.2; GLUCOSE,POINT OF CARE 179 MG/DL (70-110)
[2024-11-15 20:15] LABS: GLUCOMETER DEV NAME(LOC) 3EX.2; GLUCOSE,POINT OF CARE 204 MG/DL (70-110)
[2024-11-15 21:57] VITALS: BP 103/60; PULSE 72; RESP 18; TEMP 98.1; O2SAT 97
[2024-11-16 06:36] LABS: GLUCOMETER DEV NAME(LOC) 3EX.2; GLUCOSE,POINT OF CARE 104 MG/DL (70-110)
[2024-11-16] MEDS: BISACODYL 5 MG EC TABLET PO SCH (08:57)
[2024-11-16 11:18] VITALS: BP 103/62; PULSE 79; RESP 17; TEMP 98.2; O2SAT 98
[2024-11-16 11:46] LABS: GLUCOMETER DEV NAME(LOC) 3EX.2; GLUCOSE,POINT OF CARE 180 MG/DL (70-110)
[2024-11-16 16:46] LABS: GLUCOMETER DEV NAME(LOC) 3EX.2; GLUCOSE,POINT OF CARE 173 MG/DL (70-110)
[2024-11-16 19:56] LABS: GLUCOMETER DEV NAME(LOC) 3EX.2; GLUCOSE,POINT OF CARE 233 MG/DL (70-110)
[2024-11-16 21:01] VITALS: BP 124/100; PULSE 71; RESP 18; TEMP 98.3; O2SAT 98
[2024-11-17 05:55] LABS: GLUCOMETER DEV NAME(LOC) 3EX.2; GLUCOSE,POINT OF CARE 124 MG/DL (70-110)
[2024-11-17 11:08] VITALS: RESP 18
[2024-11-17 11:41] LABS: GLUCOMETER DEV NAME(LOC) 3EX.2; GLUCOSE,POINT OF CARE 165 MG/DL (70-110)
[2024-11-17 17:20] LABS: GLUCOMETER DEV NAME(LOC) 3EX.2; GLUCOSE,POINT OF CARE 252 MG/DL (70-110)
[2024-11-17 20:48] VITALS: BP 114/77; PULSE 70; RESP 18; TEMP 97.1; O2SAT 100
[2024-11-17 20:55] LABS: GLUCOMETER DEV NAME(LOC) 3EX.2; GLUCOSE,POINT OF CARE 177 MG/DL (70-110)
[2024-11-17] MEDS: AZITHROMYCIN 500 MG TABLET PO SCH (22:00)
[2024-11-18 07:11] LABS: GLUCOMETER DEV NAME(LOC) 3E.I 2; GLUCOSE,POINT OF CARE 78 MG/DL (70-110)
[2024-11-18 12:05] LABS: GLUCOMETER DEV NAME(LOC) 3E.I 2; GLUCOSE,POINT OF CARE 143 MG/DL (70-110)
[2024-11-18 13:16] VITALS: BP 107/71; PULSE 73; RESP 18; TEMP 97; O2SAT 97
[2024-11-18 14:10] VITALS: BP 107/71; PULSE 73; RESP 16; TEMP 97; O2SAT 97
[2024-11-18 14:16] VITALS: BP 111/73; PULSE 77; RESP 18; TEMP 97.3; O2SAT 98
[2024-11-18 17:20] LABS: GLUCOMETER DEV NAME(LOC) 3EX.2; GLUCOSE,POINT OF CARE 151 MG/DL (70-110)
[2024-11-18 22:21] VITALS: BP 113/76; PULSE 71; RESP 18; TEMP 98.4; O2SAT 96
[2024-11-18 22:51] LABS: GLUCOMETER DEV NAME(LOC) 3EX.2; GLUCOSE,POINT OF CARE 169 MG/DL (70-110)
[2024-11-19 06:55] LABS: GLUCOMETER DEV NAME(LOC) 3EX.2; GLUCOSE,POINT OF CARE 81 MG/DL (70-110)
[2024-11-19 09:00] VITALS: BP 106/64; PULSE 72; RESP 17; TEMP 97.3; O2SAT 98
[2024-11-19 16:41] LABS: GLUCOMETER DEV NAME(LOC) 3EX.2; GLUCOSE,POINT OF CARE 169 MG/DL (70-110)
[2024-11-19 20:35] LABS: GLUCOMETER DEV NAME(LOC) 3E.I 2; GLUCOSE,POINT OF CARE 227 MG/DL (70-110)
[2024-11-19 20:40] LABS: GLUCOMETER DEV NAME(LOC) 3EX.2; GLUCOSE,POINT OF CARE 224 MG/DL (70-110)
[2024-11-19 21:40] VITALS: BP 115/80; PULSE 61; RESP 18; TEMP 98; O2SAT 97
[2024-11-20 06:20] LABS: GLUCOMETER DEV NAME(LOC) 3EX.2; GLUCOSE,POINT OF CARE 121 MG/DL (70-110)
[2024-11-20 08:43] VITALS: BP 94/71; PULSE 6; RESP 18; TEMP 98.5; O2SAT 100
[2024-11-20] MEDS: AZITHROMYCIN 250 MG TABLET PO SCH (08:47)
[2024-11-20 11:16] LABS: GLUCOMETER DEV NAME(LOC) 3E.I 2; GLUCOSE,POINT OF CARE 135 MG/DL (70-110)
[2024-11-20 17:20] LABS: GLUCOMETER DEV NAME(LOC) 3EX.2; GLUCOSE,POINT OF CARE 256 MG/DL (70-110)
[2024-11-20] MEDS: PROPRANOLOL HCL 10 MG TABLET PO SCH (17:24)
[2024-11-20 20:50] LABS: GLUCOMETER DEV NAME(LOC) 3EX.2; GLUCOSE,POINT OF CARE 162 MG/DL (70-110)
[2024-11-20 22:12] VITALS: BP 126/99; PULSE 60; RESP 18; TEMP 97.5; O2SAT 99
[2024-11-21 06:31] LABS: GLUCOMETER DEV NAME(LOC) 3EX.2; GLUCOSE,POINT OF CARE 81 MG/DL (70-110)
[2024-11-21 09:50] VITALS: BP 114/66; PULSE 62; RESP 12; TEMP 98.4; O2SAT 98
[2024-11-21 11:56] LABS: GLUCOMETER DEV NAME(LOC) 3EX.2; GLUCOSE,POINT OF CARE 115 MG/DL (70-110)
[2024-11-21 17:11] LABS: GLUCOMETER DEV NAME(LOC) 3E.I 2; GLUCOSE,POINT OF CARE 255 MG/DL (70-110)
[2024-11-21 20:24] VITALS: BP 130/65; PULSE 80; RESP 18; TEMP 98.1; O2SAT 95
[2024-11-21 21:00] LABS: GLUCOMETER DEV NAME(LOC) 3E.I 2; GLUCOSE,POINT OF CARE 216 MG/DL (70-110)
[2024-11-21 23:14] VITALS: RESP 18
[2024-11-22 06:31] LABS: GLUCOMETER DEV NAME(LOC) 3E.I 2; GLUCOSE,POINT OF CARE 80 MG/DL (70-110)
[2024-11-22] MEDS: DULoxetine HCL 30 MG CAPSULE PO SCH (09:42)
[2024-11-22 09:52] VITALS: BP 103/53; PULSE 84; RESP 18; TEMP 97.6; O2SAT 95
[2024-11-22 13:30] LABS: GLUCOMETER DEV NAME(LOC) 3E.I 2; GLUCOSE,POINT OF CARE 108 MG/DL (70-110)
[2024-11-22 20:06] LABS: GLUCOMETER DEV NAME(LOC) 3E.I 2; GLUCOSE,POINT OF CARE 250 MG/DL (70-110)
[2024-11-22 20:40] LABS: GLUCOMETER DEV NAME(LOC) 3E.I 2; GLUCOSE,POINT OF CARE 243 MG/DL (70-110)
[2024-11-22 21:35] VITALS: BP 112/65; PULSE 65; RESP 18; TEMP 97.7; O2SAT 95
[2024-11-22 22:19] VITALS: RESP 18
[2024-11-22 23:19] VITALS: RESP 18
[2024-11-23 06:36] LABS: GLUCOMETER DEV NAME(LOC) 3E.I 2; GLUCOSE,POINT OF CARE 101 MG/DL (70-110)
[2024-11-23 08:33] VITALS: BP 108/63; PULSE 60; RESP 17; TEMP 97.9
[2024-11-23 12:05] LABS: GLUCOMETER DEV NAME(LOC) 3E.I 2; GLUCOSE,POINT OF CARE 96 MG/DL (70-110)
[2024-11-23 16:29] VITALS: BP 136/79; PULSE 71; RESP 17; TEMP 98
[2024-11-23 16:56] LABS: GLUCOMETER DEV NAME(LOC) 3E.I 2; GLUCOSE,POINT OF CARE 302 MG/DL (70-110)
[2024-11-23 17:29] VITALS: BP 128/69; PULSE 71; RESP 17; TEMP 97.6
[2024-11-23 20:20] LABS: GLUCOMETER DEV NAME(LOC) 3EX.2; GLUCOSE,POINT OF CARE 119 MG/DL (70-110)
[2024-11-23 21:04] VITALS: BP 108/54; PULSE 59; RESP 18; TEMP 97.7; O2SAT 97
[2024-11-24 06:31] LABS: GLUCOMETER DEV NAME(LOC) 3E.I 2; GLUCOSE,POINT OF CARE 104 MG/DL (70-110)
[2024-11-24 09:01] VITALS: BP 100/68; PULSE 66; RESP 18; TEMP 97.2; O2SAT 98
[2024-11-24 12:05] VITALS: BP 101/65; PULSE 89; RESP 18; O2SAT 98
[2024-11-24 13:20] LABS: GLUCOMETER DEV NAME(LOC) 3E.I 2; GLUCOSE,POINT OF CARE 151 MG/DL (70-110)
[2024-11-24 21:04] VITALS: BP 139/71; PULSE 62; RESP 17; TEMP 98.4; O2SAT 99
[2024-11-24 21:56] LABS: GLUCOMETER DEV NAME(LOC) 3E.I 2; GLUCOSE,POINT OF CARE 183 MG/DL (70-110)
[2024-11-24 21:56] LABS: GLUCOMETER DEV NAME(LOC) 3E.I 2; GLUCOSE,POINT OF CARE 324 MG/DL (70-110)
[2024-11-25 05:41] LABS: GLUCOMETER DEV NAME(LOC) 3EX.2; GLUCOSE,POINT OF CARE 101 MG/DL (70-110)
[2024-11-25 09:30] VITALS: BP 112/59; PULSE 71; RESP 18; TEMP 97.4; O2SAT 99
[2024-11-25 12:16] LABS: GLUCOMETER DEV NAME(LOC) 3E.I 2; GLUCOSE,POINT OF CARE 90 MG/DL (70-110)
[2024-11-25 12:45] VITALS: BP 100/56; PULSE 64
[2024-11-25 16:35] LABS: GLUCOMETER DEV NAME(LOC) 3E.I 2; GLUCOSE,POINT OF CARE 93 MG/DL (70-110)
[2024-11-25 17:15] VITALS: BP 110/60; PULSE 66
[2024-11-25 20:20] VITALS: BP 111/55; PULSE 62; TEMP 97.5
[2024-11-25 20:55] LABS: GLUCOMETER DEV NAME(LOC) 3E.I 2; GLUCOSE,POINT OF CARE 133 MG/DL (70-110)
[2024-11-26 06:01] LABS: GLUCOMETER DEV NAME(LOC) 3E.I 2; GLUCOSE,POINT OF CARE 76 MG/DL (70-110)
[2024-11-26] MEDS: DULoxetine HCL 60 MG CAPSULE PO SCH (09:26)
[2024-11-26 09:50] VITALS: BP 100/61; PULSE 61; RESP 18; TEMP 97.5; O2SAT 96
[2024-11-26 12:06] LABS: GLUCOMETER DEV NAME(LOC) 3E.I 2; GLUCOSE,POINT OF CARE 117 MG/DL (70-110)
[2024-11-26 17:25] LABS: GLUCOMETER DEV NAME(LOC) 3E.I 2; GLUCOSE,POINT OF CARE 210 MG/DL (70-110)
[2024-11-26 20:50] LABS: GLUCOMETER DEV NAME(LOC) 3E.I 2; GLUCOSE,POINT OF CARE 178 MG/DL (70-110)
[2024-11-26 21:38] VITALS: BP 126/51; PULSE 62; RESP 18; TEMP 97.4; O2SAT 99
[2024-11-27 06:21] LABS: GLUCOMETER DEV NAME(LOC) 3E.I 2; GLUCOSE,POINT OF CARE 88 MG/DL (70-110)
[2024-11-27] MEDS: DULoxetine HCL 20 MG CAPSULE PO SCH (09:21)
[2024-11-27 10:09] VITALS: BP 106/61; PULSE 71; RESP 18; TEMP 98.1; O2SAT 95
[2024-11-27 12:25] LABS: GLUCOMETER DEV NAME(LOC) 3E.I 2; GLUCOSE,POINT OF CARE 91 MG/DL (70-110)
[2024-11-27 18:00] LABS: GLUCOMETER DEV NAME(LOC) 3E.I 2; GLUCOSE,POINT OF CARE 266 MG/DL (70-110)
[2024-11-27 21:48] VITALS: BP 126/84; PULSE 63; RESP 18; TEMP 96.9; O2SAT 95
[2024-11-27 21:55] VITALS: BP 126/84; PULSE 63; RESP 18; TEMP 96.9; O2SAT 95
[2024-11-27 22:59] VITALS: RESP 18
[2024-11-27 23:36] LABS: GLUCOMETER DEV NAME(LOC) 3E.I 2; GLUCOSE,POINT OF CARE 293 MG/DL (70-110)
[2024-11-28 07:00] LABS: GLUCOMETER DEV NAME(LOC) 3E.I 2; GLUCOSE,POINT OF CARE 122 MG/DL (70-110)
[2024-11-28 10:55] VITALS: BP 102/52; PULSE 67; RESP 16; TEMP 97.8; O2SAT 97
[2024-11-28 11:41] LABS: GLUCOMETER DEV NAME(LOC) 3E.I 2; GLUCOSE,POINT OF CARE 110 MG/DL (70-110)
[2024-11-28 17:55] LABS: GLUCOMETER DEV NAME(LOC) 3E.I 2; GLUCOSE,POINT OF CARE 247 MG/DL (70-110)
[2024-11-28 20:27] VITALS: BP 134/89; PULSE 83; RESP 18; TEMP 98.5; O2SAT 99
[2024-11-28 20:51] LABS: GLUCOMETER DEV NAME(LOC) 3E.I 2; GLUCOSE,POINT OF CARE 220 MG/DL (70-110)
[2024-11-29 06:10] LABS: GLUCOMETER DEV NAME(LOC) 3E.I 2; GLUCOSE,POINT OF CARE 126 MG/DL (70-110)
[2024-11-29 11:31] LABS: GLUCOMETER DEV NAME(LOC) 3E.I 2; GLUCOSE,POINT OF CARE 122 MG/DL (70-110)
[2024-11-29 16:36] VITALS: RESP 18
[2024-11-29 18:21] LABS: GLUCOMETER DEV NAME(LOC) 3EX.2; GLUCOSE,POINT OF CARE 165 MG/DL (70-110)
[2024-11-29] MEDS: BENZTROPINE MESYLATE 2 MG TABLET PO ONE (20:34)
[2024-11-29 20:36] LABS: GLUCOMETER DEV NAME(LOC) 3E.I 2; GLUCOSE,POINT OF CARE 307 MG/DL (70-110)
[2024-11-29 21:26] VITALS: BP 153/73; PULSE 78; RESP 18; TEMP 97.1; O2SAT 100
[2024-11-30 06:00] LABS: GLUCOMETER DEV NAME(LOC) 3E.I 2; GLUCOSE,POINT OF CARE 190 MG/DL (70-110)
[2024-11-30] MEDS: BENZTROPINE MESYLATE 2 MG TABLET PO SCH (09:57)
[2024-11-30 11:45] LABS: GLUCOMETER DEV NAME(LOC) 3E.I 2; GLUCOSE,POINT OF CARE 211 MG/DL (70-110)
[2024-11-30 11:58] LABS: APPEARANCE,URINE CLEAR (CLEAR); GLUCOSE, URINE (UA) NEGATIVE (NEGATIVE); LEUKOCYTE ESTERASE ,URINE TRACE (NEGATIVE); NITRATE,URINE NEGATIVE (NEGATIVE); OCCULT BLOOD,URINE NEGATIVE (NEGATIVE); SPECIFIC GRAVITIY, URINE 1.010 (1.003-1.030)
[2024-11-30 12:02] LABS: SQUAMOUS EPITHELIAL CELL,UR Few /LPF (None Seen)
[2024-11-30 12:58] VITALS: BP 106/71; PULSE 60; RESP 17; TEMP 98; O2SAT 98
[2024-11-30 17:30] LABS: GLUCOMETER DEV NAME(LOC) 3E.I 2; GLUCOSE,POINT OF CARE 269 MG/DL (70-110)
[2024-11-30 20:20] LABS: GLUCOMETER DEV NAME(LOC) 3E.I 2; GLUCOSE,POINT OF CARE 242 MG/DL (70-110)
[2024-12-01 06:46] LABS: GLUCOMETER DEV NAME(LOC) 3E.I 2; GLUCOSE,POINT OF CARE 166 MG/DL (70-110)
[2024-12-01 09:34] VITALS: BP 119/62; PULSE 70; RESP 16; TEMP 97.5; O2SAT 98
[2024-12-01 11:40] LABS: GLUCOMETER DEV NAME(LOC) 3E.I 2; GLUCOSE,POINT OF CARE 106 MG/DL (70-110)
[2024-12-01 17:35] LABS: GLUCOMETER DEV NAME(LOC) 3E.I 2; GLUCOSE,POINT OF CARE 219 MG/DL (70-110)
[2024-12-01 20:15] LABS: GLUCOMETER DEV NAME(LOC) 3E.I 2; GLUCOSE,POINT OF CARE 217 MG/DL (70-110)
[2024-12-01 21:02] VITALS: BP 114/81; PULSE 82; RESP 20; TEMP 98.6; O2SAT 95
[2024-12-02 06:25] LABS: GLUCOMETER DEV NAME(LOC) 3E.I 2; GLUCOSE,POINT OF CARE 90 MG/DL (70-110)
[2024-12-02 10:01] VITALS: BP 111/75; PULSE 77; RESP 18; TEMP 98; O2SAT 99
[2024-12-02 11:30] LABS: GLUCOMETER DEV NAME(LOC) 3E.I 2; GLUCOSE,POINT OF CARE 130 MG/DL (70-110)
[2024-12-02 17:10] LABS: GLUCOMETER DEV NAME(LOC) 3E.I 2; GLUCOSE,POINT OF CARE 238 MG/DL (70-110)
[2024-12-02 20:21] LABS: GLUCOMETER DEV NAME(LOC) 3EX.2; GLUCOSE,POINT OF CARE 214 MG/DL (70-110)
[2024-12-02 22:05] VITALS: BP 111/74; PULSE 80; RESP 18; TEMP 97.7; O2SAT 96
[2024-12-03 06:15] LABS: GLUCOMETER DEV NAME(LOC) 3EX.2; GLUCOSE,POINT OF CARE 124 MG/DL (70-110)
[2024-12-03 09:24] VITALS: BP 95/74; PULSE 60; RESP 18; TEMP 97.3; O2SAT 98
[2024-12-03 11:51] LABS: GLUCOMETER DEV NAME(LOC) 3E.I 2; GLUCOSE,POINT OF CARE 95 MG/DL (70-110)
[2024-12-03 16:46] LABS: GLUCOMETER DEV NAME(LOC) 3E.I 2; GLUCOSE,POINT OF CARE 214 MG/DL (70-110)
[2024-12-03 17:50] VITALS: BP 105/68; PULSE 72; RESP 16; TEMP 98; O2SAT 97
[2024-12-03 20:35] LABS: GLUCOMETER DEV NAME(LOC) 3E.I 2; GLUCOSE,POINT OF CARE 267 MG/DL (70-110)
[2024-12-03 21:18] VITALS: BP 101/58; PULSE 76; RESP 18; TEMP 97.5; O2SAT 98
[2024-12-04 06:06] LABS: GLUCOMETER DEV NAME(LOC) 3E.I 2; GLUCOSE,POINT OF CARE 116 MG/DL (70-110)
[2024-12-04 12:15] LABS: GLUCOMETER DEV NAME(LOC) 3E.I 2; GLUCOSE,POINT OF CARE 155 MG/DL (70-110)
[2024-12-04 15:28] VITALS: BP 95/76; PULSE 61; RESP 17; TEMP 97.2; O2SAT 98
[2024-12-04 18:20] LABS: GLUCOMETER DEV NAME(LOC) 3EX.2; GLUCOSE,POINT OF CARE 328 MG/DL (70-110)
[2024-12-04 20:36] LABS: GLUCOMETER DEV NAME(LOC) 3EX.2; GLUCOSE,POINT OF CARE 193 MG/DL (70-110)
[2024-12-04 23:41] VITALS: BP 140/91; PULSE 66; RESP 18; TEMP 97.9; O2SAT 96
[2024-12-05] VITALS (7 sets, daily range): BP systolic 112–124; BP diastolic 55–82; PULSE 70–74; RESP 16–19; TEMP 97.2–98; O2SAT 97–98
[2024-12-05 06:11] LABS: GLUCOMETER DEV NAME(LOC) 3E.I 2; GLUCOSE,POINT OF CARE 85 MG/DL (70-110)
[2024-12-05 11:50] LABS: GLUCOMETER DEV NAME(LOC) 3E.I 2; GLUCOSE,POINT OF CARE 128 MG/DL (70-110)
[2024-12-05 17:11] LABS: GLUCOMETER DEV NAME(LOC) 3EX.2; GLUCOSE,POINT OF CARE 182 MG/DL (70-110)
[2024-12-05 18:56] LABS: GLUCOMETER DEV NAME(LOC) 3E.I 2; GLUCOSE,POINT OF CARE 264 MG/DL (70-110)
[2024-12-05 21:07] LABS: GLUCOMETER DEV NAME(LOC) 3E.I 2; GLUCOSE,POINT OF CARE 236 MG/DL (70-110)
[2024-12-06 06:21] LABS: GLUCOMETER DEV NAME(LOC) 3E.I 2; GLUCOSE,POINT OF CARE 150 MG/DL (70-110)
[2024-12-06 08:43] VITALS: BP 114/65; PULSE 62; RESP 17; TEMP 97.7; O2SAT 95
[2024-12-06 12:01] LABS: GLUCOMETER DEV NAME(LOC) 3E.I 2; GLUCOSE,POINT OF CARE 133 MG/DL (70-110)
[2024-12-06 17:11] LABS: GLUCOMETER DEV NAME(LOC) 3E.I 2; GLUCOSE,POINT OF CARE 249 MG/DL (70-110)
[2024-12-06 20:35] LABS: GLUCOMETER DEV NAME(LOC) 3E.I 2; GLUCOSE,POINT OF CARE 230 MG/DL (70-110)
[2024-12-06 21:16] VITALS: BP 119/69; PULSE 74; RESP 18; TEMP 98; O2SAT 97
[2024-12-06 21:19] VITALS: BP 119/69; PULSE 74; RESP 18; TEMP 98; O2SAT 98
[2024-12-07 06:16] LABS: GLUCOMETER DEV NAME(LOC) 3E.I 2; GLUCOSE,POINT OF CARE 180 MG/DL (70-110)
[2024-12-07 11:06] VITALS: RESP 17
[2024-12-07 12:15] LABS: GLUCOMETER DEV NAME(LOC) 3E.I 2; GLUCOSE,POINT OF CARE 158 MG/DL (70-110)
[2024-12-07 18:06] LABS: GLUCOMETER DEV NAME(LOC) 3E.I 2; GLUCOSE,POINT OF CARE 223 MG/DL (70-110)
[2024-12-07 21:01] LABS: GLUCOMETER DEV NAME(LOC) 3E.I 2; GLUCOSE,POINT OF CARE 154 MG/DL (70-110)
[2024-12-07 21:07] VITALS: BP 140/68; PULSE 66; RESP 18; TEMP 97.5; O2SAT 98
[2024-12-07 21:15] VITALS: BP 140/88; PULSE 66; RESP 18; TEMP 97.2; O2SAT 98
[2024-12-08 07:05] LABS: GLUCOMETER DEV NAME(LOC) 3E.I 2; GLUCOSE,POINT OF CARE 132 MG/DL (70-110)
[2024-12-08 11:45] LABS: GLUCOMETER DEV NAME(LOC) 3E.I 2; GLUCOSE,POINT OF CARE 149 MG/DL (70-110)
[2024-12-08 12:24] VITALS: BP 106/83; PULSE 97; RESP 18; TEMP 97.6; O2SAT 99
[2024-12-08 18:11] LABS: GLUCOMETER DEV NAME(LOC) 3E.I 2; GLUCOSE,POINT OF CARE 213 MG/DL (70-110)
[2024-12-08 18:30] VITALS: BP 130/69; PULSE 99; RESP 18; O2SAT 98
[2024-12-08 20:41] LABS: GLUCOMETER DEV NAME(LOC) 3E.I 2; GLUCOSE,POINT OF CARE 294 MG/DL (70-110)
[2024-12-08 22:31] VITALS: BP 110/59; PULSE 67; RESP 18; O2SAT 98
[2024-12-08 22:34] VITALS: BP 110/59; PULSE 67; RESP 18; O2SAT 98
[2024-12-09 06:11] LABS: GLUCOMETER DEV NAME(LOC) 3E.I 2; GLUCOSE,POINT OF CARE 187 MG/DL (70-110)
[2024-12-09 12:00] LABS: GLUCOMETER DEV NAME(LOC) 3E.I 2; GLUCOSE,POINT OF CARE 168 MG/DL (70-110)
[2024-12-09 15:16] VITALS: RESP 18; O2SAT 98
[2024-12-09 16:06] LABS: GLUCOMETER DEV NAME(LOC) 3E.I 2; GLUCOSE,POINT OF CARE 136 MG/DL (70-110)
[2024-12-09 20:45] LABS: GLUCOMETER DEV NAME(LOC) 3E.I 2; GLUCOSE,POINT OF CARE 178 MG/DL (70-110)
[2024-12-09 21:55] VITALS: BP 122/68; PULSE 69; RESP 17; TEMP 97.3; O2SAT 97
[2024-12-10 06:21] LABS: GLUCOMETER DEV NAME(LOC) 3E.I 2; GLUCOSE,POINT OF CARE 97 MG/DL (70-110)
[2024-12-10 08:01] VITALS: BP 112/90; PULSE 96; RESP 16; TEMP 98.1; O2SAT 96
[2024-12-10 11:36] LABS: GLUCOMETER DEV NAME(LOC) 3E.I 2; GLUCOSE,POINT OF CARE 134 MG/DL (70-110)
[2024-12-10 12:26] VITALS: BP 117/63; PULSE 65; RESP 18; TEMP 97.3; O2SAT 97
[2024-12-10 18:06] LABS: GLUCOMETER DEV NAME(LOC) 3E.I 2; GLUCOSE,POINT OF CARE 171 MG/DL (70-110)
[2024-12-10 20:45] LABS: GLUCOMETER DEV NAME(LOC) 3E.I 2; GLUCOSE,POINT OF CARE 129 MG/DL (70-110)
[2024-12-10 21:11] VITALS: BP 132/62; PULSE 64; RESP 18; TEMP 97.1; O2SAT 98
[2024-12-11 06:16] LABS: GLUCOMETER DEV NAME(LOC) 3E.I 2; GLUCOSE,POINT OF CARE 108 MG/DL (70-110)
[2024-12-11 11:31] LABS: GLUCOMETER DEV NAME(LOC) 3E.I 2; GLUCOSE,POINT OF CARE 137 MG/DL (70-110)
[2024-12-11 17:26] LABS: GLUCOMETER DEV NAME(LOC) 3E.I 2; GLUCOSE,POINT OF CARE 95 MG/DL (70-110)
[2024-12-11 17:35] VITALS: BP 138/69; PULSE 72; RESP 18; TEMP 98; O2SAT 97
[2024-12-11 21:52] VITALS: BP_SYST 128; BP_SYST 150; BP_DIAS 100; BP_DIAS 61; PULSE 65; RESP 18; TEMP 97.7; O2SAT 97
[2024-12-11 21:56] LABS: GLUCOMETER DEV NAME(LOC) 3E.I 2; GLUCOSE,POINT OF CARE 110 MG/DL (70-110)
[2024-12-12 07:05] LABS: GLUCOMETER DEV NAME(LOC) 3E.I 2; GLUCOSE,POINT OF CARE 138 MG/DL (70-110)
[2024-12-12 11:06] LABS: GLUCOMETER DEV NAME(LOC) 3E.I 2; GLUCOSE,POINT OF CARE 146 MG/DL (70-110)
== END 2024-12-12 15:50 | disposition short-term general hospital (02) | DRG 885 ==
LOC: EMS 11:44 → 3EX 20:19
PROVIDERS: ADMIT Psychiatry & Neurology Psychiatry; ATTEND Psychiatry & Neurology Psychiatry
PROC: GZHZZZZ Group Psychotherapy (ICD-10-PCS; principal; 2024-09-03)
PROC: GZ51ZZZ Individual Psychotherapy, Behavioral (ICD-10-PCS; 2024-09-03)
DX: F25.9 Schizoaffective disorder, unspecified (principal); R45.851 Suicidal ideations; G45.9 Transient cerebral ischemic attack, unspecified; D64.9 Anemia, unspecified; E03.9 Hypothyroidism, unspecified; Z20.822 Contact with and (suspected) exposure to COVID-19; E78.00 Pure hypercholesterolemia, unspecified; G24.01 Drug induced subacute dyskinesia; I10 Essential (primary) hypertension; R32 Unspecified urinary incontinence; G40.409 Other generalized epilepsy and epileptic syndromes, not intractable, without status epilepticus; J44.89 Other specified chronic obstructive pulmonary disease; K21.9 Gastro-esophageal reflux disease without esophagitis; F17.200 Nicotine dependence, unspecified, uncomplicated; G25.81 Restless legs syndrome; G89.29 Other chronic pain; E11.9 Type 2 diabetes mellitus without complications; G30.9 Alzheimer's disease, unspecified; E11.42 Type 2 diabetes mellitus with diabetic polyneuropathy
CPT/HCPCS: 70450; 71045; 72100; 80048; 80061; 80164; 80307; 81001; 82962; 85025; 87081; 87481; 97116; 97162; 97166; 97530; 97535; 99285; G0378; G0480; J1815; Q0162; 36415-L1; 36415-TC